=== PATIENT | female | born 1955 | race Caucasian/White ===

== ENCOUNTER → 2016-04-30 | Outpatient (CLI) | payer OTHER ==
[~2016-04-30] MED LIST: DILA100C; LISI10TA4; PRIL20CA; XANA1TAB2
== END ==
LOC: M SMT 10:26
PROVIDERS: ATTEND Physician Assistant Medical
DX: R56.9 Unspecified convulsions (principal)

== ENCOUNTER → 2016-04-30 | Outpatient (CLI) | payer OTHER | LOC: M SMT 08:44 | PROVIDERS: ATTEND Family Medicine | DX: R94.5 Abnormal results of liver function studies (principal) ==

== ENCOUNTER → 2016-07-04 | Outpatient (CLI) | payer OTHER ==
[2016-07-04 10:07] LABS: ALBUMIN 3.2 GM/DL (3.2-5.2); ALBUMIN/GLOBULIN RATIO 0.91 (1.00-1.93); ALKALINE PHOSPHATASE 135 U/L (45-117); ALT/SGPT 19 U/L (12-78); ANION GAP 6 MEQ/L (8-16); AST/SGOT 17 U/L (15-37); BILIRUBIN,TOTAL 0.3 MG/DL (0.2-1.0); BLOOD UREA NITROGEN 11 MG/DL (7-18); CALCIUM LEVEL 8.4 MG/DL (8.8-10.2); CARBON DIOXIDE LEVEL 31 MEQ/L (21-32); CHLORIDE LEVEL 106 MEQ/L (98-107); CREATININE FOR GFR 0.72 MG/DL (0.55-1.02); GAMMA GLUTAMYLTRANSPEPTIDASE 60 U/L (5-55); GLOMERULAR FILTRATION RATE > 60.0 (>45); GLUCOSE, FASTING 90 MG/DL (80-110); POTASSIUM SERUM 4.5 MEQ/L (3.5-5.1); SODIUM LEVEL 143 MEQ/L (136-145); TOTAL PROTEIN 6.7 GM/DL (6.4-8.2)
[2016-07-04 11:06] LABS: STABLE ALKPHOS 24 U/L
[2016-07-04 11:07] LABS: LABILE ALKPHOS 111 U/L
== END ==
LOC: M LAB 09:12
PROVIDERS: ATTEND Family Medicine
DX: R94.5 Abnormal results of liver function studies (principal); E55.9 Vitamin D deficiency, unspecified

== ENCOUNTER → 2016-11-19 | Outpatient (CLI) | payer OTHER ==
[2016-11-19 10:33] LABS: BASO % 0.6 % (0.0-1.0); EOS # 0.2 K/mm3 (0.0-0.50); EOS % 2.6 % (0.0-3.0); LARGE UNSTAINED CELL # 0.1 K/mm3 (0.0-0.4); LARGE UNSTAINED CELL % 1.2 % (0.0-4.0); LYMPH # 1.5 K/mm3 (1.5-4.5); LYMPH % 20.6 % (24.0-44.0); MEAN CORPUSCULAR HEMOGLOBIN 31.3 pg (27.0-33.0); MEAN CORPUSCULAR HGB CONC 33.4 g/dl (32.0-36.5); MEAN CORPUSCULAR VOLUME 93.6 fl (80.0-96.0); MONO # 0.4 K/mm3 (0.0-0.8); MONO % 6.3 % (0.0-5.0); NEUTROPHILS # 4.5 K/mm3 (1.8-7.7); NEUTROPHILS % 68.7 % (36.0-66.0); PLATELET COUNT, AUTOMATED 190 k/mm3 (150-450); WHITE BLOOD COUNT 6.6 K/mm3 (4.0-10.0)
[2016-11-19 10:56] LABS: ALBUMIN 3.2 GM/DL (3.2-5.2); ALBUMIN/GLOBULIN RATIO 0.94 (1.00-1.93); ALKALINE PHOSPHATASE 140 U/L (45-117); ALT/SGPT 19 U/L (12-78); ANION GAP 7 MEQ/L (8-16); AST/SGOT 14 U/L (15-37); BILIRUBIN,TOTAL 0.2 MG/DL (0.2-1.0); BLOOD UREA NITROGEN 12 MG/DL (7-18); CALCIUM LEVEL 8.4 MG/DL (8.8-10.2); CARBON DIOXIDE LEVEL 29 MEQ/L (21-32); CHLORIDE LEVEL 107 MEQ/L (98-107); CREATININE FOR GFR 0.69 MG/DL (0.55-1.02); FREE T4 0.79 NG/DL (0.76-1.46); GLOMERULAR FILTRATION RATE > 60.0 (>45); GLUCOSE, FASTING 91 MG/DL (80-110); POTASSIUM SERUM 4.8 MEQ/L (3.5-5.1); SODIUM LEVEL 143 MEQ/L (136-145); TOTAL PROTEIN 6.6 GM/DL (6.4-8.2)
== END ==
LOC: M LAB 09:40
PROVIDERS: ATTEND Family Medicine
DX: R94.5 Abnormal results of liver function studies (principal); E55.9 Vitamin D deficiency, unspecified; F41.1 Generalized anxiety disorder; G40.89 Other seizures

== ENCOUNTER → 2017-08-23 | Outpatient (CLI) | payer OTHER ==
[2017-08-23 10:44] LABS: PHENYTOIN (DILANTIN) 24.3 UG/ML (10.0-20.0)
== END ==
LOC: M LAB 09:58
DX: R56.9 Unspecified convulsions (principal)
CPT/HCPCS: 80185

== ENCOUNTER → 2017-08-25 | Outpatient (CLI) | payer OTHER ==
[2017-08-25 09:42] LABS: PHENYTOIN (DILANTIN) 23.9 UG/ML (10.0-20.0)
== END ==
LOC: M LAB 08:37
DX: G40.909 Epilepsy, unspecified, not intractable, without status epilepticus (principal)

== ENCOUNTER → 2017-08-25 | Outpatient (CLI) | payer OTHER ==
[2017-08-25 09:31] LABS: BASO # 0.1 10^3/uL (0.0-0.2); BASO % 0.8 % (0.0-1.0); EOS # 0.2 10^3/uL (0.0-0.50); EOS % 3.2 % (0.0-3.0); HEMATOCRIT 36.8 % (36.0-47.0); HEMOGLOBIN 12.1 g/dl (12.0-15.5); IMMATURE GRANULOCYTE % 0.3 % (0-3.0); LYMPH # 1.5 10^3/uL (1.5-4.5); MEAN CORPUSCULAR HEMOGLOBIN 29.9 pg (27.0-33.0); MEAN CORPUSCULAR HGB CONC 32.9 g/dl (32.0-36.5); MEAN CORPUSCULAR VOLUME 90.9 fl (80.0-96.0); MONO # 0.5 10^3/uL (0.0-0.8); MONO % 8.4 % (0.0-5.0); NEUTROPHILS # 3.7 10^3/uL (1.8-7.7); NEUTROPHILS % 62.3 % (36.0-66.0); PLATELET COUNT, AUTOMATED 181 10^3/uL (150-450); RED BLOOD COUNT 4.05 10^6/uL (4.00-5.40); RED CELL DISTRIBUTION WIDTH 15.7 % (11.5-14.5); WHITE BLOOD COUNT 5.9 10^3/uL (4.0-10.0)
[2017-08-25 09:50] LABS: ALBUMIN/GLOBULIN RATIO 0.83 (1.00-1.93); ALKALINE PHOSPHATASE 139 U/L (45-117); ALT/SGPT 19 U/L (12-78); ANION GAP 4 MEQ/L (8-16); AST/SGOT 17 U/L (7-37); BILIRUBIN,TOTAL 0.3 MG/DL (0.2-1.0); BLOOD UREA NITROGEN 11 MG/DL (7-18); CARBON DIOXIDE LEVEL 30 MEQ/L (21-32); CHLORIDE LEVEL 110 MEQ/L (98-107); CHOLESTEROL LEVEL 178 MG/DL (<200); CHOLESTEROL RISK RATIO 2.197 (<5); CREATININE FOR GFR 0.71 MG/DL (0.55-1.30); GLOMERULAR FILTRATION RATE > 60.0 (>45); GLUCOSE, FASTING 89 MG/DL (70-100); HDL CHOLESTEROL 81 MG/DL (>40); LDL CHOLESTEROL 83.2 MG/DL (<100); NON-HDL-C 97 MG/DL; PHENYTOIN (DILANTIN) 24.7 UG/ML (10.0-20.0); POTASSIUM SERUM 4.8 MEQ/L (3.5-5.1); SODIUM LEVEL 144 MEQ/L (136-145); TOTAL PROTEIN 6.6 GM/DL (6.4-8.2); TRIGLYCERIDES LEVEL 69 MG/DL (<150)
[2017-08-25 09:51] LABS: FREE T4 0.69 NG/DL (0.76-1.46)
== END ==
LOC: M LAB 08:29
DX: G40.89 Other seizures (principal)

== ENCOUNTER → 2017-09-03 | Outpatient (CLI) | payer OTHER | LOC: M WUC 13:17 | DX: R05 Cough (principal); R06.2 Wheezing | CPT/HCPCS: 71046 ==

== ENCOUNTER → 2017-09-05 | Outpatient (CLI) | payer OTHER ==
[2017-09-05 12:47] LABS: PHENYTOIN (DILANTIN) 20.2 UG/ML (10.0-20.0)
== END ==
LOC: M LAB 10:44
DX: R56.9 Unspecified convulsions (principal)
CPT/HCPCS: 80185

== ENCOUNTER → 2017-10-07 | Outpatient (CLI) | payer OTHER | LOC: M SMT 11:14 | DX: J20.9 Acute bronchitis, unspecified (principal) | CPT/HCPCS: 71046 ==

== ENCOUNTER → 2017-10-28 | Outpatient (REF) | payer OTHER | LOC: M LAB REF 09:35 | DX: J20.9 Acute bronchitis, unspecified (principal) | CPT/HCPCS: 87186 ==

== ENCOUNTER → 2017-11-20 | Outpatient (CLI) | payer OTHER ==
[2017-11-20 08:44] LABS: BASO # 0.1 10^3/uL (0.0-0.2); BASO % 0.7 % (0.0-1.0); EOS # 0.7 10^3/uL (0.0-0.50); EOS % 8.5 % (0.0-3.0); HEMATOCRIT 38.4 % (36.0-47.0); HEMOGLOBIN 12.9 g/dl (12.0-15.5); IMMATURE GRANULOCYTE % 0.1 % (0-3.0); LYMPH # 1.7 10^3/uL (1.5-4.5); LYMPH % 22.3 % (24.0-44.0); MEAN CORPUSCULAR HEMOGLOBIN 30.2 pg (27.0-33.0); MEAN CORPUSCULAR HGB CONC 33.6 g/dl (32.0-36.5); MEAN CORPUSCULAR VOLUME 89.9 fl (80.0-96.0); MONO # 0.6 10^3/uL (0.0-0.8); MONO % 7.6 % (0.0-5.0); NEUTROPHILS # 4.6 10^3/uL (1.8-7.7); NEUTROPHILS % 60.8 % (36.0-66.0); PLATELET COUNT, AUTOMATED 188 10^3/uL (150-450); RED BLOOD COUNT 4.27 10^6/uL (4.00-5.40); RED CELL DISTRIBUTION WIDTH 14.3 % (11.5-14.5); WHITE BLOOD COUNT 7.6 10^3/uL (4.0-10.0)
[2017-11-20 09:05] LABS: ERYTHROCYTE SEDIMENTATION RATE 33 mm/hr (0-30)
[2017-11-20 09:09] LABS: ANION GAP 5 MEQ/L (8-16); BLOOD UREA NITROGEN 15 MG/DL (7-18); C REACTIVE PROTEIN QUANTITATIV 1.71 MG/DL (0.00-0.30); CALCIUM LEVEL 8.4 MG/DL (8.8-10.2); CARBON DIOXIDE LEVEL 29 MEQ/L (21-32); CHLORIDE LEVEL 110 MEQ/L (98-107); CREATININE FOR GFR 0.76 MG/DL (0.55-1.30); GLOMERULAR FILTRATION RATE > 60.0 (>45); GLUCOSE, FASTING 91 MG/DL (70-100); NT-PRO BNP 120 PG/ML (<125); SODIUM LEVEL 144 MEQ/L (136-145)
== END ==
LOC: M LAB 08:02
DX: R05 Cough (principal)

== ENCOUNTER → 2018-04-04 | Outpatient (CLI) | payer OTHER | LOC: M LAB 10:57 | PROVIDERS: ATTEND Physician Assistant Medical | DX: R56.9 Unspecified convulsions (principal) ==

== ENCOUNTER → 2018-06-22 | Outpatient (CLI) | payer OTHER ==
[~2018-06-22] MED LIST changes: +METHACHOLINE KIT (J7674) INH ONE
--- NOTE | 2018-06-22 15:33 | PFTRPT ---
Height: 61.00 Inches Weight: 191.00 Lbs BSA: 1.85 Diagnosis: R06.00 DATE OF PROCEDURE: 06/22/2018 ORDERED BY: EMETERIO Rasmussen INTERPRETATION: Study of excellent technical quality. Under protocol, methacholine was administered. At a dose of 0.25 mg or 1.375 CDUs, a 21% decline in the FEV1 was noted. PC of 0.22 is significant. Flow rates did return to baseline post bronchodilator administration. IMPRESSION: Positive methacholine challenge study. MTDD
== END ==
LOC: M CARPUL 09:46
PROVIDERS: ATTEND Physician Assistant
DX: R06.00 Dyspnea, unspecified (principal)
CPT/HCPCS: 94070; J7674

== ENCOUNTER 2018-08-25 17:44 | Emergency (ER) | payer OTHER ==
[~2018-08-25] VITALS: Ht 154.9 cm; Wt 92.4 kg
[~2018-08-25 17:44] MED LIST changes: -METHACHOLINE KIT (J7674) INH ONE
[2018-08-25] MEDS ORDERED: ACETAMINOPHEN 500 MG TAB PO ONE (18:30)
[2018-08-25] MEDS ORDERED: diphenhydrAMINE 25 MG CAP PO ONE (18:30)
[2018-08-25] MEDS ORDERED: KETOROLAC 60 MG/2 ML VIAL (J1885) IM ONE (18:30)
[2018-08-25] MEDS ORDERED: METH4PACK (18:33)
[2018-08-25] MEDS ORDERED: GABA-843 PO (18:33)
[2018-08-25] MEDS ORDERED: CLON-412 PO (18:33)
[2018-08-25] MEDS ORDERED: SYMB16INH PO (18:33)
[2018-08-25] MEDS ORDERED: HYDR50TA70 PO (18:33)
[2018-08-25] MEDS ORDERED: CLON2TAB7 PO (18:33)
[2018-08-25] MEDS ORDERED: GABA600T4 PO (18:33)
[2018-08-25] MEDS ORDERED: D3 H2000 PO (18:33)
[2018-08-25] MEDS ORDERED: PROAAER10 PO (18:33)
[2018-08-25] MEDS ORDERED: FLUO10CA8 PO ×2 (18:33)
[2018-08-25] MEDS ORDERED: KETO10TAB PO (18:33)
[2018-08-25] MEDS ORDERED: DILA100C PO (18:33)
--- NOTE | 2018-08-25 19:29 | REP ---
CT brain without contrast: History: Headache x 1 week. Comparison brain MRI study is from June 26, 2008. 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 Bone window settings demonstrate the right temporoparietal craniotomy. There are numerous metallic densities dispersed in the right temporal lobe and occipital lobe region with areas of encephalomalacia. These findings appear to be unchanged when compared with the remote prior MRI study. Apparently, there is a history of treatment for right temporal lobe arteriovenous malformation. Today's CT images show no evidence of intracranial hemorrhage. No extra-axial fluid collection is seen. No new infarction is seen. Vascular calcification is noted in the distal carotid arteries bilaterally. There is some diffuse volume loss. Impression: Postoperative changes in the right temporal and occipital lobes, unchanged from remote prior MRI study status post AV therapy. Diffuse atrophy and vascular calcification. No acute intracranial abnormality. Electronically Signed by Jose Young MD 08/25/2018 08:30 P
[2018-08-25 19:41] VITALS: BP 137/65
== END 2018-08-25 19:43 | disposition home or self-care (01) ==
LOC: M ED 17:44
DX: G44.209 Tension-type headache, unspecified, not intractable (principal); I10 Essential (primary) hypertension; F41.9 Anxiety disorder, unspecified; H40.9 Unspecified glaucoma; R56.9 Unspecified convulsions; Z90.710 Acquired absence of both cervix and uterus; Z87.798 Personal history of other (corrected) congenital malformations; Z79.51 Long term (current) use of inhaled steroids; Z79.899 Other long term (current) drug therapy; Z98.890 Other specified postprocedural states
CPT/HCPCS: 70450; 96372; 99283; J1885

== ENCOUNTER → 2018-10-17 | Outpatient (CLI) | payer OTHER ==
[~2018-10-17] MED LIST changes: +CLON-412 PO; +CLON2TAB7 PO; +D3 H2000 PO; +DILA100C PO; +FLUO10CA8 PO; +GABA-843 PO; +GABA600T4 PO; +HYDR50TA70 PO; +KETO10TAB PO; +METH4PACK; +PROAAER10 PO; +SYMB16INH PO
== END ==
LOC: M LAB 15:05
PROVIDERS: ATTEND Physician Assistant Medical
DX: G40.89 Other seizures (principal)

== ENCOUNTER → 2018-10-17 | Outpatient (CLI) | payer OTHER ==
[2018-10-17 15:45] LABS: BASO % 0.6 % (0.0-1.0); EOS # 0.1 10^3/uL (0.0-0.50); EOS % 1.2 % (0.0-3.0); HEMATOCRIT 39.6 % (36.0-47.0); HEMOGLOBIN 13.1 g/dl (12.0-15.5); LYMPH # 1.7 10^3/uL (1.5-4.5); LYMPH % 26.3 % (24.0-44.0); MEAN CORPUSCULAR HEMOGLOBIN 30.8 pg (27.0-33.0); MEAN CORPUSCULAR HGB CONC 33.1 g/dl (32.0-36.5); MONO # 0.4 10^3/uL (0.0-0.8); MONO % 6.5 % (0.0-5.0); NEUTROPHILS # 4.2 10^3/uL (1.8-7.7); NEUTROPHILS % 65.1 % (36.0-66.0); PLATELET COUNT, AUTOMATED 209 10^3/uL (150-450); RED BLOOD COUNT 4.26 10^6/uL (4.00-5.40); WHITE BLOOD COUNT 6.5 10^3/uL (4.0-10.0)
[2018-10-17 16:11] LABS: ALBUMIN 3.6 GM/DL (3.2-5.2); ALT/SGPT 19 U/L (12-78); BILIRUBIN,TOTAL 0.2 MG/DL (0.2-1.0); BLOOD UREA NITROGEN 10 MG/DL (7-18); CALCIUM LEVEL 8.5 MG/DL (8.8-10.2); CARBON DIOXIDE LEVEL 27 MEQ/L (21-32); CHLORIDE LEVEL 108 MEQ/L (98-107); CHOLESTEROL LEVEL 182 MG/DL (<200); CHOLESTEROL RISK RATIO 2.888 (<5); CREATININE FOR GFR 0.77 MG/DL (0.55-1.30); FREE T4 0.91 NG/DL (0.76-1.46); GLOMERULAR FILTRATION RATE > 60.0 (>45); GLUCOSE, FASTING 83 MG/DL (70-100); HDL CHOLESTEROL 63 MG/DL (>40); LDL CHOLESTEROL 102 MG/DL (<100); NON-HDL-C 119 MG/DL; POTASSIUM SERUM 4.2 MEQ/L (3.5-5.1); SODIUM LEVEL 143 MEQ/L (136-145); TOTAL PROTEIN 7.2 GM/DL (6.4-8.2); TRIGLYCERIDES LEVEL 85 MG/DL (<150)
== END ==
LOC: M LAB 14:58
PROVIDERS: ATTEND Family Medicine
DX: Z13.220 Encounter for screening for lipoid disorders (principal); Z13.29 Encounter for screening for other suspected endocrine disorder; Z13.0 Encounter for screening for diseases of the blood and blood-forming organs and certain disorders involving the immune mechanism

== ENCOUNTER → 2018-10-17 | Outpatient (CLI) | payer OTHER ==
[2018-10-17 15:51] LABS: BASO % 0.6 % (0.0-1.0); EOS # 0.1 10^3/uL (0.0-0.50); EOS % 1.8 % (0.0-3.0); HEMATOCRIT 38.2 % (36.0-47.0); HEMOGLOBIN 12.7 g/dl (12.0-15.5); LYMPH # 1.7 10^3/uL (1.5-4.5); LYMPH % 25.4 % (24.0-44.0); MEAN CORPUSCULAR HEMOGLOBIN 30.2 pg (27.0-33.0); MEAN CORPUSCULAR HGB CONC 33.2 g/dl (32.0-36.5); MEAN CORPUSCULAR VOLUME 90.7 fl (80.0-96.0); MONO # 0.5 10^3/uL (0.0-0.8); MONO % 6.9 % (0.0-5.0); NEUTROPHILS # 4.4 10^3/uL (1.8-7.7); NEUTROPHILS % 65.2 % (36.0-66.0); PLATELET COUNT, AUTOMATED 211 10^3/uL (150-450); RED BLOOD COUNT 4.21 10^6/uL (4.00-5.40); WHITE BLOOD COUNT 6.7 10^3/uL (4.0-10.0)
[2018-10-17 16:28] LABS: BLOOD UREA NITROGEN 9 MG/DL (7-18); CARBON DIOXIDE LEVEL 26 MEQ/L (21-32); CHLORIDE LEVEL 108 MEQ/L (98-107); GLOMERULAR FILTRATION RATE > 60.0 (>45); GLUCOSE, FASTING 76 MG/DL (70-100); POTASSIUM SERUM 4.1 MEQ/L (3.5-5.1); SODIUM LEVEL 142 MEQ/L (136-145)
[2018-10-17 16:29] LABS: ALBUMIN 3.5 GM/DL (3.2-5.2); ALT/SGPT 20 U/L (12-78); BILIRUBIN,TOTAL 0.3 MG/DL (0.2-1.0); FREE T3 2.6 PG/ML (2.2-4.0); FREE T4 0.98 NG/DL (0.76-1.46); IRON (FE) 50 UG/DL (50-170); PERCENT SATURATION 26.7 % (13.2-45.0); PHENYTOIN (DILANTIN) 17.6 UG/ML (10.0-20.0); TOTAL IRON BINDING CAPACITY 187 UG/DL (250-450); TOTAL PROTEIN 7.2 GM/DL (6.4-8.2)
[2018-10-17 16:36] LABS: TOTAL 25(OH) VITAMIN D 41.8 NG/ML (30.0-100.0)
[2018-10-18 09:55] LABS: THYROID PEROXIDASE ANTIBODY < 28.0 U/ML (<60.0)
[2018-10-18 09:56] LABS: THYROGLOBULIN ANTIBODY 20.3 U/ML (<60.0)
[2018-10-23 14:10] LABS: ANTINUCLEAR ANTIBODIES DIRECT Negative (Negative); Lyme Disease IgG Ab 18 kDa Ban Present (.); Lyme Disease IgG Ab 23 kDa Ban Absent (.); Lyme Disease IgG Ab 28 kDa Ban Present (.); Lyme Disease IgG Ab 30 kDa Ban Absent (.); Lyme Disease IgG Ab 39 kDa Ban Absent (.); Lyme Disease IgG Ab 41 kDa Ban Absent (.); Lyme Disease IgG Ab 45 kDa Ban Absent (.); Lyme Disease IgG Ab 58 kDa Ban Absent (.); Lyme Disease IgG Ab 66 kDa Ban Absent (.); Lyme Disease IgG Ab 93 kDa Ban Present (.); Lyme Disease IgG West Blot Int Negative (.); Lyme Disease IgG/IgM Antibodie <0.91 ISR (0.00-0.90); Lyme Disease IgM Ab 23 kDa Ban Absent (.); Lyme Disease IgM Ab 39 kDa Ban Present (.); Lyme Disease IgM Ab 41 kDa Ban Absent (.); Lyme Disease IgM Ab Quantitati 2.45 index (0.00-0.79); Lyme Disease IgM West Blot Int Negative (.); T3 REVERSE 19.1 ng/dL (9.2-24.1)
== END ==
LOC: M LAB 15:11
PROVIDERS: ATTEND Nurse Practitioner Pediatrics
DX: F41.0 Panic disorder [episodic paroxysmal anxiety] (principal); F41.1 Generalized anxiety disorder; R53.1 Weakness

== ENCOUNTER → 2019-04-24 | Outpatient (CLI) | payer OTHER ==
[~2019-04-24] MED LIST changes: +FLUO10CA15 PO; -FLUO10CA8 PO
== END ==
LOC: M LAB 10:00
PROVIDERS: ATTEND Physician Assistant Medical
DX: G40.909 Epilepsy, unspecified, not intractable, without status epilepticus (principal)

== ENCOUNTER → 2019-04-30 | Outpatient (CLI) | payer OTHER ==
--- NOTE | 2019-05-01 05:16 | REP ---
Clinical: Follow up abnormal lung findings. Technique: Axial noncontrast images from the thoracic inlet to the upper abdomen with coronal and sagittal re-formations. Comparison: 06/01/2018, 11/22/2017, 12/20/2008. Findings: Few scattered small pleural based nodules up to approximately 4 mm are again identified and unchanged along with few scattered small calcified granulomata. The lung gutierrez are otherwise well aerated, relatively symmetric and clear. No consolidation, significant nodule or mass lesion appreciated. No effusion. No pneumothorax. Tracheobronchial tree is patent. No adenopathy. Mediastinum demonstrates minimal atherosclerotic changes to the thoracic aorta and coronary arteries without aortic aneurysm or cardiomegaly. No pericardial effusion. Surrounding musculoskeletal structures are intact. Small hiatal hernia noted. Bilateral adrenal glands are normal. Cholelithiasis cannot be excluded. Impression: 1. Lung gutierrez demonstrate minimal chronic benign appearing granulomatous changes. No acute or significant thoracic process is appreciated. 2. Small hiatal hernia. 3. Presumed cholelithiasis. Electronically Signed by Clyde Brown MD 05/01/2019 05:07 A
== END ==
LOC: M RAD 10:24
PROVIDERS: ATTEND Physician Assistant
DX: R91.1 Solitary pulmonary nodule (principal)

== ENCOUNTER → 2019-10-06 | Outpatient (CLI) | payer MEDICARE, OTHER ==
[2019-10-06 14:07] LABS: BASO % 0.4 % (0.0-1.0); EOS # 0.1 10^3/uL (0.0-0.5); EOS % 1.7 % (0.0-3.0); HEMATOCRIT 40.9 % (36.0-47.0); HEMOGLOBIN 13.3 g/dl (12.0-15.5); LYMPH % 28.5 % (24.0-44.0); MEAN CORPUSCULAR HEMOGLOBIN 30.1 pg (27.0-33.0); MEAN CORPUSCULAR HGB CONC 32.5 g/dl (32.0-36.5); MEAN CORPUSCULAR VOLUME 92.5 fl (80.0-96.0); MONO # 0.5 10^3/uL (0.0-0.8); MONO % 7.7 % (0.0-5.0); NEUTROPHILS # 4.3 10^3/uL (1.5-8.5); NEUTROPHILS % 61.4 % (36.0-66.0); PLATELET COUNT, AUTOMATED 250 10^3/uL (150-450); RED BLOOD COUNT 4.42 10^6/uL (4.00-5.40); WHITE BLOOD COUNT 6.9 10^3/uL (4.0-10.0)
[2019-10-06 14:21] LABS: ALBUMIN 3.2 GM/DL (3.2-5.2); ALT/SGPT 18 U/L (12-78); BILIRUBIN,TOTAL 0.3 MG/DL (0.2-1.0); BLOOD UREA NITROGEN 12 MG/DL (7-18); CALCIUM LEVEL 8.3 MG/DL (8.8-10.2); CARBON DIOXIDE LEVEL 28 MEQ/L (21-32); CHLORIDE LEVEL 107 MEQ/L (98-107); CHOLESTEROL LEVEL 197 MG/DL (<200); CHOLESTEROL RISK RATIO 2.432 (<5); CREATININE FOR GFR 0.85 MG/DL (0.55-1.30); FREE T4 0.81 NG/DL (0.76-1.46); GLOMERULAR FILTRATION RATE > 60.0 (>45); GLUCOSE, FASTING 101 MG/DL (70-100); HDL CHOLESTEROL 81 MG/DL (>40); LDL CHOLESTEROL 99 MG/DL (<100); NON-HDL-C 116 MG/DL; POTASSIUM SERUM 4.3 MEQ/L (3.5-5.1); SODIUM LEVEL 144 MEQ/L (136-145); TRIGLYCERIDES LEVEL 87 MG/DL (<150)
== END ==
LOC: M WUC 09:48
PROVIDERS: ATTEND Family Medicine
DX: E55.9 Vitamin D deficiency, unspecified (principal); R94.5 Abnormal results of liver function studies; G40.89 Other seizures; Z79.899 Other long term (current) drug therapy

== ENCOUNTER → 2019-10-06 | Outpatient (CLI) | payer MEDICARE, OTHER | LOC: M WUC 09:46 | PROVIDERS: ATTEND Physician Assistant Medical | DX: G40.909 Epilepsy, unspecified, not intractable, without status epilepticus (principal) ==

== ENCOUNTER → 2019-12-13 | Outpatient (CLI) | payer MEDICARE, OTHER ==
[~2019-12-13] MED LIST changes: -FLUO10CA15 PO; +FLUO10CA16 PO
--- NOTE | 2019-12-25 17:16 | REP ---
RIGHT HIP: 2-VIEWS HISTORY: Bursitis of the right hip. Muscle strain. No known injury. Pain x5 days. FINDINGS: AP and frog leg views of the right hip show mild diffuse osteopenia. Femoral head is smooth and rounded. Hip joint space is preserved. There is no evidence of erosive change or significant spurring. No bony destructive lesion. Periarticular soft tissues are unremarkable. IMPRESSION: Mild diffuse osteopenia. Otherwise negative radiographs of the right hip. MTDD
--- NOTE | 2019-12-25 17:18 | REP ---
RIGHT KNEE SERIES: 5-VIEWS HISTORY: Muscle strain or tendon strain. Bursitis of hip. No known injury. Pain. FINDINGS: Five views of the right knee demonstrate diffuse osteopenia. There is moderate three compartment osteoarthritis of the right knee. Chondrocalcinosis is noted medially and laterally. Patellofemoral spurring and narrowing are seen. No acute bony abnormality is seen. IMPRESSION: Moderate three compartment osteoarthritis. No acute bony abnormality. MTDD
== END ==
LOC: M WUC 15:11
PROVIDERS: ATTEND Physician Assistant
DX: M70.71 Other bursitis of hip, right hip (principal); S86.211A Strain of muscle(s) and tendon(s) of anterior muscle group at lower leg level, right leg, initial encounter; M17.11 Unilateral primary osteoarthritis, right knee; M85.851 Other specified disorders of bone density and structure, right thigh; X58.XXXA Exposure to other specified factors, initial encounter; Y92.9 Unspecified place or not applicable

== ENCOUNTER → 2020-07-14 | Outpatient (CLI) | payer MEDICARE, OTHER ==
[~2020-07-14] MED LIST changes: +GABA-282 PO; -GABA-843 PO
[2020-07-14 10:26] LABS: BASO # 0.1 10^3/uL (0.0-0.2); BASO % 0.7 % (0.0-1.0); EOS # 0.3 10^3/uL (0.0-0.5); EOS % 4.2 % (0.0-3.0); HEMOGLOBIN 12.2 g/dl (12.0-15.5); LYMPH # 2.3 10^3/uL (1.5-5.0); LYMPH % 32.2 % (24.0-44.0); MEAN CORPUSCULAR HEMOGLOBIN 29.4 pg (27.0-33.0); MEAN CORPUSCULAR HGB CONC 31.3 g/dl (32.0-36.5); MONO # 0.7 10^3/uL (0.0-0.8); MONO % 9.1 % (2.0-8.0); NEUTROPHILS # 3.8 10^3/uL (1.5-8.5); NEUTROPHILS % 53.5 % (36.0-66.0); PLATELET COUNT, AUTOMATED 209 10^3/uL (150-450); RED BLOOD COUNT 4.15 10^6/uL (4.00-5.40); WHITE BLOOD COUNT 7.1 10^3/uL (4.0-10.0)
[2020-07-14 10:50] LABS: ALT/SGPT 18 U/L (12-78); BILIRUBIN,TOTAL 0.1 MG/DL (0.2-1.0); BLOOD UREA NITROGEN 17 MG/DL (7-18); CALCIUM LEVEL 8.1 MG/DL (8.8-10.2); CARBON DIOXIDE LEVEL 28 MEQ/L (21-32); CHLORIDE LEVEL 107 MEQ/L (98-107); CREATININE FOR GFR 0.61 MG/DL (0.55-1.30); GLOMERULAR FILTRATION RATE > 60.0 (>45); GLUCOSE, FASTING 79 MG/DL (70-100); PHENYTOIN (DILANTIN) 10.3 UG/ML (10.0-20.0); POTASSIUM SERUM 4.5 MEQ/L (3.5-5.1); SODIUM LEVEL 140 MEQ/L (136-145); TOTAL PROTEIN 6.6 GM/DL (6.4-8.2)
== END ==
LOC: M LAB 09:29
PROVIDERS: ATTEND Physician Assistant Medical
DX: Z51.81 Encounter for therapeutic drug level monitoring (principal); G40.89 Other seizures

== ENCOUNTER → 2020-08-18 | Outpatient (CLI) | payer MEDICARE, OTHER ==
--- NOTE | 2020-08-18 09:37 | DEXAMM ---
INDICATION: Z13.820 SCREENING FOR OSTEOPOROSIS. COMPARISON: None. TECHNIQUE: Bone density was measured using dual-energy x-ray absorptiometry (DEXA). FINDINGS: AP SPINE L1-L4 BMD 1.016 g/cm2 Young Adult T-Score -1.4 Age Matched Z-Score 0.2. LT FEMUR, TOTAL BMD 0.779 g/cm2 Young Adult T-Score -1.8 Age Matched Z-Score -0.6. LT NECK BMD 0.718 g/cm2 Young Adult T-Score -2.3 Age Matched Z-Score -0.8. RT FEMUR, TOTAL BMD 0.772 g/cm2 Young Adult T-Score -1.9 Age Matched Z-Score -0.6. RT NECK BMD 0.686 g/cm2 Young Adult T-Score -2.5 Age Matched Z-Score -1.0. IMPRESSION: There is low bone density of the spine. There is low bone density of the left hip. There is low bone density of the right hip. FOLLOW-UP: Recommendation for the next bone density exam: 2 years. <Electronically signed by Kingsley Marroquin > 08/18/20 0933
--- NOTE | 2020-08-18 12:05 | REPMRS ---
Patient History The patient states she has not had a clinical breast exam in over a year. Patient is postmenopausal. No known family history of cancer. No Hormone Replacement Therapy Patient states no breast complaints today. Patient has signed MRS History Sheet. Digital Woman Screen Mammo: August 18, 2020 - Exam #: [id number] Bilateral CC and MLO view(s) were taken. Technologist: Yoli Abdalla, Technologist Prior study comparison: July 19, 2011, bilateral digital mammo screening bilat, performed at [facility]. December 09, 2005, bilateral digital mammo screening bilat, performed at [facility]. FINDINGS: There are scattered fibroglandular densities. Screening. Digital screening (2D) mammography was performed bilaterally in the CC and MLO projections. Additionally, breast tomosynthesis (3D mammography) was performed bilaterally in the CC and MLO projections. Todays exam was compared to the prior exams(s). By history, the patient has no complaints of a palpable breast abnormality or other significant breast complaints. The breasts are unchanged in size and shape.Once again, stable benign appearing calcifications are seen. There are no jessica-soft tissue densities or spiculated masses. There is no internal architectural distortion. There are no suspicious jessica-calcific clusters. Skin thickening or nipple retraction is not present. IMPRESSION: BI-RADS Category 2- Benign Findings(s). There is no evidence of malignant alteration of the breasts. Followup examination recommended in one year. The Volpara volumetric breast density category is B, there are scattered areas of fibroglandular density. This mammogram was read with the assistance of [facility] [employer],an FDA approved computer aided detection system for mammography. The lifetime Tyrer-Cuzick score is 4.2 % Negative x-ray reports should not delay surgical consultation if a dominant or clinically suspicious mass is present. Not all breast cancers can be identified by mammography. Therefore, we recommend that you continue to perform regular breast self-examination and physical examination and then promptly contact your physician of any concerns or changes. Adenosis and dense breasts may obscure an underlying neoplasm. Assessment: BI-RADS/ACR category 2 mammogram. Benign Findings. Recommendation Routine screening mammogram of both breasts in 1 year. Electronically Signed By: Prem Noble DO 08/18/20 [id number]
== END ==
LOC: M WHC 08:12
PROVIDERS: ATTEND Physician Assistant
DX: Z12.31 Encounter for screening mammogram for malignant neoplasm of breast (principal); Z13.820 Encounter for screening for osteoporosis; M81.0 Age-related osteoporosis without current pathological fracture

== ENCOUNTER → 2020-12-11 | Outpatient (CLI) | payer MEDICARE, OTHER ==
[2020-12-11 17:14] LABS: BLOOD UREA NITROGEN 14 MG/DL (7-18); GLOMERULAR FILTRATION RATE > 60.0 (>45)
== END ==
LOC: M LAB 14:48
PROVIDERS: ATTEND Physician Assistant
DX: M54.16 Radiculopathy, lumbar region (principal); M54.5 Low back pain

== ENCOUNTER → 2020-12-26 | Outpatient (CLI) | payer MEDICARE, OTHER | LOC: M LAB 08:47 | PROVIDERS: ATTEND Physician Assistant Medical | DX: R56.9 Unspecified convulsions (principal); Z51.81 Encounter for therapeutic drug level monitoring; Z79.899 Other long term (current) drug therapy ==

== ENCOUNTER → 2021-01-07 | Outpatient (CLI) | payer MEDICARE, OTHER ==
--- NOTE | 2021-01-07 15:47 | REPVR ---
PROCEDURE INFORMATION: Exam: CT Cervical Spine Without Contrast Exam date and time: 01/07/2021 3:09 PM Age: 65 years old Clinical indication: Pain; Cervicalgia TECHNIQUE: Imaging protocol: Computed tomography images of the cervical spine without contrast. Radiation optimization: All CT scans at this facility use at least one of these dose optimization techniques: automated exposure control; mA and/or kV adjustment per patient size (includes targeted exams where dose is matched to clinical indication); or iterative reconstruction. COMPARISON: CT Chest without contrast 04/30/2019 10:40 AM FINDINGS: There are advanced multilevel degenerative changes that include disc space narrowing, vacuum disc, ventral ridging, uncovertebral joint arthropathy, and hypertrophic spur formation. There is moderate bony spinal canal stenosis at C6/7. There is moderate right-sided intracranial pathology, not fully characterized on this exam. This has been reported previously. IMPRESSION: 1. There are advanced multilevel degenerative changes that include disc space narrowing, vacuum disc, ventral ridging, uncovertebral joint arthropathy, and hypertrophic spur formation. There is moderate bony spinal canal stenosis at C6/7. Full evaluation of the intervertebral discs and intraspinal contents is limited with CT imaging. Clinical findings will determine the need for further evaluation with MRI imaging. 2. There is moderate right-sided intracranial pathology, not fully characterized on this exam. This has been reported previously. Please refer to prior CT report dated August 25, 2018 for additional details. Electronically signed by: Ron Saravia On 01/07/2021 15:47:04 PM
== END ==
LOC: M RAD 14:59
PROVIDERS: ATTEND Physician Assistant Medical
DX: M54.2 Cervicalgia (principal)

== ENCOUNTER 2021-02-11 10:27 | Emergency (ER) | payer MEDICARE, OTHER ==
[~2021-02-11] VITALS: Ht 152.4 cm; Wt 88.6 kg
[2021-02-11] MEDS ORDERED: BACL10TA2 (10:36)
[2021-02-11] MEDS ORDERED: MELO15TA28 (10:36)
[2021-02-11] MEDS ORDERED: ALPR1TAB3 (10:36)
--- OUTSIDE RECORDS SUMMARY | 2021-02-11 10:36 | CCD | Continuity of Care Document ---
Author Author Mali COLLINS P.A. 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 AUTM AUTB Unavailable Problems Active Problems Provider Date Mild persistent asthma Kamaljit Lepe D.O. Onset: 07/10/2020 Mild intermittent asthma Lionel Rasmussen Onset: 06/30/19 19 Other nonspecific abnormal finding of lung field Roland oshea, P.AWinston Onset: 11/25/2017 Difficulty breathing Lionel Rasmussen Onset: 11/25/2017 Social History Type Date Description Comments Sex Unknown Tobacco Use Reviewed: 05/17/19 Patient has never smoked Smoking Status Reviewed: 01/29/21 Patient has never smoked Allergies and adverse reactions Active Allergies Criticality Reaction | Severity Comments Date Cerumenex Unable to assess criticality 11/25/2017 Medications Active Medications SIG Qnty Indications Ordering Provide r Date Symbicort 160-4.5mcg/Act Aerosol 2 puff twice a day 10.200gm J45.20 Ita StephensOWinston 06/29/2018 Dilantin 100mg Capsules 1 by mouth twice a day Unknown Prozac 10mg Capsules 20mg every morning, 10mg every evening Unknown Hydroxyzine HCL 50mg Tablets 1 by mouth every evening Unknown Proair HFA 108(90Base) mcg/Act Aer osol 2 puffs four times a day as needed 17gm Ita StephensO . Vitamin D3 2000Unit Capsules daily Unknown Xanax XR 1mg Tablets ER 24HR 1 tab by mouth four times a day Unknown 0 Immunizations CPT Code Status Date Vaccine Lot # [id number] Given 05/17/2019 Prevnar 13 [id number] Given 05/17/2019 Prevnar 13 [id number] Vital Signs Date Vital Result Comment 01/29/2021 2:40pm BP Systolic 160 mmHg Rechecked 138 /86 BP Diastolic 90 mmHg Rechecked 138/86 Heart Rate 74 /min O2 % BldC Oximetry 97 % Height 61 inches 5'1" Weight 199.00 lb BMI (Body Mass Index) 37.6 kg/m2 [place] Body Weight 105 lb Weight 90.266 kg BSA (Body Surface Area) 1.88 m2 07/10/2020 11:22am BP Systolic 130 mmHg BP Diastolic 80 mmHg Heart Rate 65 /min O2 % BldC Oximetry 98 % Body Temperature 97.3 F Height 61 inches 5'1" Weight 206.00 lb BMI (Body Mass Index) 38.9 kg/m2 [place] Body Weight 105 lb Weight 93.442 kg BSA (Body Surface Area) 1.91 m2 Results Test Acquired Date Facility Test Result H/L Range Note FVL/[place] 01/29/2021 [facility] SEE IMAGE FVC-Pred 2.77 L FVC-Pre 1.69 L FVC-%Pred-Pre 60 L FVC-LLN 2.14 L Fev1-Pred 2.11 L Fev1-Pre 1.45 L Fev1-%Pred-Pre 68 L Fev1-LLN 1.58 L Fev6-Pred 2.65 L Fev6-Pre 1.69 L Fev6-%Pred-Pre 63 L Fev6-LLN 2.04 L Cqm6lcl-Gtzq 77 % Olx6fad-Rae 86 % Ghr5kxp-%Pred-Pre 111 % Vnj3zvx-MDX 67 % Tvb9odi-Agvw 96 % Tkz2nkg-Ggy 100 % Bnl5dxe-%Pred-Pre 104 % FEFMax-Pred 5.48 L/E/sec FEFMax-Pre 5.23 L/E/sec FEFMax-%Pred-Pre 95 L/E/sec FEFMax-LLN 3.92 L/E/sec Xgp5259-Zlvs 1.92 L/E/sec Tud9170-Xay 1.95 L/E/sec Lki0440-%Pred-Pre 101 L/E/sec Csd0004-YLI 0.79 L/E/sec ExpTime-Pre 6.02 sec Ubn6ykp3-Iiks 80 % Ecf8ami7-Dfs 86 % Tdd9kym0-%Pred-Pre 107 % Jnl8kbe7-LOX 71 % Procedures Description No Information Available Medical Devices Description No Information Available Encounters Description No Information Available Assessments Date Code Description Provider 01/29/2021 J45.30 Mild persistent asthma Roland gonzalez, P.A. Plan of Treatment Future Appointment(s):* 07/28/2021 11:30 am - Kamaljit Lepe D.O. at [facility] 01/29/2021 - Roland Collins, P.A.* J45.30 Mild persistent asthma * * New Labs:* FVL/[place], Ordered: 01/29/21 * Follow up:* Follow up in 6 months with tung Functional Status Functional Condition Comment Date Status Independent with all ADL's Activ e Independent with all IADL's Acti ve Mental Status Mental Condition Comment Date Status None Active Can understand information Activ e Referrals Description No Information Available
--- OUTSIDE RECORDS SUMMARY | 2021-02-11 10:36 | CCD | Continuity of Care Document ---
Author Author Mali RICCI PA Organization Unknown Address [address] [place] [address], [address] [address] Phone [phone] Care Team Providers Care Vac Press Operator Name Role Phone Sourav Loisroberta ESQUIVEL AUTM Eugene Harrison AUTM [phone] Problems Active Problems Provider Date Essential hypertension Jermaine Li DO Onset: 5 Social History Type Date Description Comments Sex Unknown ETOH Use Occasionally consumes alcohol Tobacco Use Start: Unknown Denies Smoking Allergies, Adverse Reactions, Alerts Active Allergies Criticality Reaction | Severity Comments Date Ceruminex Unable to assess criticality ear drops 04/24/2015 Medications Active Medications SIG Qnty Indications Ordering Provide r Date Gabapentin 100mg Capsules 1 by mouth three times a day 540caps Jace Perez MD 12/25/2020 Meloxicam 15mg Tablets 1 by mouth every day with food or milk 180tabs Jace Perez MD 021 Dilantin 30mg Capsules Unknown Xanax 1mg Tablets one pill 3 times a day as needed for anxiety Unknown Fluoxetine HCL (PMDD) 10mg Tablets M47.26 Unknown Vitamin D-3 25mcg (1000 Ut) Capsul es 1 by mouth every day M47.26 Unknown Immunizations Description No Information Available Vital Signs Date Vital Result Comment 03/19/2020 8:14am Body Temperature 96.5 F Height 59 inches 4'11" Weight 195.50 lb BMI (Body Mass Index) 39.5 kg/m2 01/14/2020 2:48pm Body Temperature 97.5 F Results Test Acquired Date Facility Test Result H/L Range Note Laboratory test finding [facility] [address] [place] [address] (315)- - Blood Urea Nitrogen 14 mg/dL Normal 7-18 Creatinine With GFR 12/11/2020 [facility] [address] [place] [address] ([phone] - Creatinine For GFR 0.60 mg/dL Normal 0.55-1.30 Glomerular Filtration Rate > 60.0 Normal >45 1 1 Units are mL/min/1.73 m2 Chronic Kidney Disease Staging per NKF: Stage I & II GFR >=60 Normal to Mildly Decreased Stage III GFR 30-59 Moderately Decreased Stage IV GFR 15-29 Severely Decreased Stage V GFR <15 Very Little GFR Left ESRD GFR <15 on 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 Procedures Date Code Description Status 12/25/2020 [id number] Phone Evaluation/Management By Tyree maxwell 5-10 Mins Completed Medical Devices Description No Information Available Encounters Type Date Location Provider Dx Diagnosis Office Visit 12/25/2020 1:40p [place] LEONEL Greene M54.16 Radiculopathy, lumbar region M54.5 Low back pain Assessments Date Code Description Provider 12/25/2020 M54.16 Radiculopathy, lumbar region LEONEL Lerma 12/25/2020 M54.5 Low back pain LEONEL Greene Plan of Treatment No Information Available Functional Status Description No Information Available Mental Status Description No Information Available Referrals Description No Information Available
--- OUTSIDE RECORDS SUMMARY | 2021-02-11 10:36 | CCD | Continuity of Care Document ---
Author Author Mali COLLINS P.A. Organization Unknown Address [address] [place] [address] Phone [phone] Care Team Providers Care Crutch Maker Name Role Phone Lois Benjamin D.O. AUTM AUTV Unavailable Problems Active Problems Provider Date Mild [...] times a day as needed 17gm Ita SetphensO . Vitamin D3 2000Unit Capsules daily Unknown Xanax XR 1mg Tablets ER 24HR 1 tab by mouth four times a day Unknown 0 Immunizations CPT Code Status Date Vaccine Lot # [id number] Given 05/17/2019 Prevnar 13 [id number] Given 05/17/2019 Prevnar 13 [id number] Vital Signs Date Vital Result Comment 01/29/2021 2:40pm BP Systolic 160 mmHg Rechecked 138 /86 BP Diastolic 90 mmHg Rechecked 138/86 Heart Rate 74 /min O2 % BldC Oximetry 97 % Height 61 inches 5'1" Weight 199.00 lb BMI (Body Mass Index) 37.6 kg/m2 [place] Body Weight 105 lb Weight 90.266 kg BSA (Body Surface Area) 1.88 m2 07/10/2020 11:22am BP Systolic 130 mmHg BP Diastolic 80 mmHg Heart Rate 65 /min O2 % BldC Oximetry 98 % Body Temperature 97.3 F Height 61 inches 5'1" Weight 206.00 lb BMI (Body Mass Index) 38.9 kg/m2 [place] Body Weight 105 lb Weight 93.442 kg BSA (Body Surface Area) 1.91 m2 Results Test Acquired Date Facility Test Result H/L Range Note FVL/[place] 01/29/2021 [facility] SEE IMAGE FVC-Pred 2.77 L FVC-Pre 1.69 L FVC-%Pred-Pre 60 L FVC-LLN 2.14 L Fev1-Pred 2.11 L Fev1-Pre 1.45 L Fev1-%Pred-Pre 68 L Fev1-LLN 1.58 L Fev6-Pred 2.65 L Fev6-Pre 1.69 L Fev6-%Pred-Pre 63 L Fev6-LLN 2.04 L Zpq9smj-Cejv 77 % Gxl7zha-Zgw 86 % Nyl4snl-%Pred-Pre 111 % Fcf7smu-WUR 67 % Zlr6nmz-Jzqy 96 % Egt9hvp-Vym 100 % Zdw3aas-%Pred-Pre 104 % FEFMax-Pred 5.48 L/E/sec FEFMax-Pre 5.23 L/E/sec FEFMax-%Pred-Pre 95 L/E/sec FEFMax-LLN 3.92 L/E/sec Ami4087-Jdjy 1.92 L/E/sec Utb0756-Xsk 1.95 L/E/sec Mpj7293-%Pred-Pre 101 L/E/sec Ecf5508-WNH 0.79 L/E/sec ExpTime-Pre 6.02 sec Mwt6idl8-Dwcf 80 % Sfk0xjk3-Pxy 86 % Qtt6kqa4-%Pred-Pre 107 % Qmp9fmo8-EMG 71 % Procedures Description No Information Available Medical Devices Description No Information Available Encounters Description No Information Available Assessments Date Code Description Provider 01/29/2021 J45.30 Mild persistent asthma Roland gonzalez, P.A. Plan of Treatment Future Appointment(s):* 07/28/2021 11:30 am - Kamaljit Lepe D.O. at [facility] Pulmonary/Th[facility] 01/29/2021 - Roland Collins, P.A.* J45.30 Mild persistent asthma * * New Labs:* FVL/Roberts, Ordered: 01/29/21 * Follow up:* Follow up in 6 months with tung Functional Status Functional Condition Comment Date Status Independent with all ADL's Activ e Independent with all IADL's Acti ve Mental Status Mental Condition Comment Date Status None Active Can understand information Activ e Referrals Description No Information Available
--- OUTSIDE RECORDS SUMMARY | 2021-02-11 10:36 | CCD | Continuity of Care Document ---
Author Author Mali AGUILAR P.A.-C. Organization Unknown Address [address] [place] [address] Phone [phone] Care Team Providers Care Applications Sales Representative Name Role Phone Lois Benjamin DO AUTM Problems Description No Information Available Social History Type Date Description Comments Sex Unknown Allergies, Adverse Reactions, Alerts Active Allergies Criticality Reaction | Severity Comments Date Ceruminex Ear Drops Unable to assess criticality local reaction 12/14/2013 Valproic Acid Unable to assess criticality severe dry heaves, fatigue 04/25/2019 Inactive Allergies NKDA Unable to assess criticality 08/22/2017 Medications Active Medications SIG Qnty Indications Ordering Provide r Date Baclofen 10mg Tablets 1 po tid prn 30tabs M62.838 Cristina Judge M.D. 12/11/2020 Medrol 4mg TBPK take d osepak as directed 1pack M54.2 Cristina Judge M.D. 12/11/2020 Dilantin 100mg Capsules Take One Capsule By Mouth Twice A Day 60caps Cristina Judge M.D. 6 Xanax XR 1mg Tablets ER 24HR Unknown Immunizations Description No Information Available Vital Signs Date Vital Result Comment 12/11/2020 7:41am BP Systolic 110 mmHg BP Diastolic 80 mmHg Heart Rate 80 /min Respiratory Rate 16 /min 01/11/2020 8:42am BP Systolic 110 mmHg BP Diastolic 78 mmHg Heart Rate 76 /min Respiratory Rate 16 /min Results Test Acquired Date Facility Test Result H/L Range Note Laboratory test finding 12/26/2020 [facility] Phenytoin (Dilantin) 9.3 UG/ML Low 10.0-20.0 CBC With Differential 07/14/2020 [facility] White Blood Count 7.1 10 Normal 4.0-10.0 Red Blood Count 4.15 10 Normal 4.00-5.40 Hemoglobin 12.2 g/dL Normal 12.0-15.5 Hematocrit 39.0 % Normal 36.0-47.0 Mean Corpuscular Volume 94.0 fl Normal 80.0-96.0 Mean Corpuscular Hemoglobin 29.4 pg Normal 27.0-33.0 Mean Corpuscular HGB Conc 31.3 g/dL Low 32.0-36.5 Red Cell Distribution Width 14.6 % High 11.5-14.5 Platelet Count, Automated 209 10 Normal 150-450 Neutrophils % 53.5 % Normal 36.0-66.0 Lymph % 32.2 % Normal 24.0-44.0 [place] % 9.1 % High 2.0-8.0 Eos % 4.2 % High 0.0-3.0 Baso % 0.7 % Normal 0.0-1.0 Immature Granulocyte % 0.3 % Normal 0-3.0 Nucleated Red Blood Cell % 0.0 % Normal 0-0 Neutrophils # 3.8 10 Normal 1.5-8.5 Lymph # 2.3 10 Normal 1.5-5.0 [place] # 0.7 10 Normal 0.0-0.8 Eos # 0.3 10 Normal 0.0-0.5 Baso # 0.1 10 Normal 0.0-0.2 Comprehensive Metabolic Profil 07/14/2020 [facility] Glucose, Fasting 79 mg/dL Normal 70-100 Blood Urea Nitrogen 17 mg/dL Normal 7-18 Creatinine For GFR 0.61 mg/dL Normal 0.55-1.30 Glomerular Filtration Rate > 60.0 Normal >45 1 Sodium Level 140 mEq/L Normal 136-145 Potassium Serum 4.5 mEq/L Normal 3.5-5.1 Chloride Level 107 mEq/L Normal 98-107 Carbon Dioxide Level 28 mEq/L Normal 21-32 Anion Gap 5 mEq/L Low 8-16 Calcium Level 8.1 mg/dL Low 8.8-10.2 Ast/Sgot 18 U/L Normal 7-37 Alt/SGPT 18 U/L Normal 12-78 Alkaline Phosphatase 145 U/L High 45-117 Bilirubin,Total 0.1 mg/dL Low 0.2-1.0 Total Protein 6.6 GM/DL Normal 6.4-8.2 Albumin 3.0 GM/DL Low 3.2-5.2 Albumin/Globulin Ratio 0.8 Low 1.2-2.2 Laboratory test finding 07/14/2020 [facility] Phenytoin (Dilantin) 10.3 UG/ML Normal 10.0-20.0 1 Units are mL/min/1.73 m2 Chronic Kidney Disease Staging per NKF: Stage I & II GFR >=60 Normal to Mildly Decreased Stage III GFR 30-59 Moderately Decreased Stage IV GFR 15-29 Severely Decreased Stage V GFR <15 Very Little GFR Left ESRD GFR <15 on PET HANDLER Procedures Date Code Description Status 12/11/2020 19146 Office/Outpatient Established Mo d MDM 30-39 Min Completed 07/10/2020 51186 Phone Evaluation/Management By Tyree maxwell 5-10 Mins Completed Medical Devices Description No Information Available Encounters Type Date Location Provider Dx Diagnosis Office Visit 12/11/2020 11:15a Main office - [place] Tyree Lopes.A.-C. 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 12/11/2020 G44.219 Episodic tension-type headache, not intractable Tyree Santizo.A.-C. 12/11/2020 Q28.2 Arteriovenous malformation of ce rebral vessels Jessica Aguilar P.A.-C. 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 12/11/2020 F41.1 Generalized anxiety disorder Roz Aguilar P.A.-C. 12/11/2020 M54.2 Cervicalgia Jessica Aguilar, P.A.-C. 12/11/2020 M62.838 Other muscle spasm Jessica arreaga P.A.-C. 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 10/14/2020 G44.219 Episodic tension-type headache, not intractable Jessica Aguilar, P.A.-C. 10/14/2020 G43.009 Migraine without aura, not intra ctable, without status migra Jessica Aguilar, P.A.-C. 10/14/2020 F41.1 Generalized anxiety disorder Roz Aguilar P.A.-C. 07/10/2020 G43.009 Migraine without aura, not intra ctable, without status migra Jessica Aguilar P.A.-C. 07/10/2020 G44.219 Episodic tension-type headache, not intractable Jessica Aguilar, P.A.-C. 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 07/10/2020 F41.1 Generalized anxiety disorder Roz Aguilar P.A.-C. Plan of Treatment Future Appointment(s):* 02/24/2021 8:30 am - Jessica Aguilar P.A.-C. at Main office [facility] 12/11/2020 - Jessica Aguilar P.A.-C.* G43.009 Migraine without aura, not intractable, without status migra* Comments:* Not recurrent. * G44.219 Episodic tension-type headache, not intractable* Comments:* Controlled. * Q28.2 Arteriovenous malformation of cerebral vessels* Comments:* S/p surgery. 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 Repeat Dilantin level. * F41.1 Generalized anxiety disorder* Comments:* Follow up with Dr Valeds. * M54.2 Cervicalgia* New Medication:* Medrol 4 mg - take dosepak as directed * Comments:* Add Medrol as directed. She continues gabapentin and Mobic. Schedule cervical CT due to neck pain with recent fall. * M62.838 Other muscle spasm* New Medication:* Baclofen 10 mg - 1 po tid prn * Comments:* Add baclofen as directed. * Follow up:* 8 weeks Functional Status Description No Information Available Mental Status Description No Information Available Referrals Description No Information Available"
--- OUTSIDE RECORDS SUMMARY | 2021-02-11 10:36 | CCD | Continuity of Care Document ---
Author Author Mali COLLINS P.A. Organization Unknown Address [address] [place] [address] Phone [phone] Care Team Providers Care Critical Care Cns Name Role Phone Lois Benjamin D.O. AUTM AUTE Unavailable Problems Active Problems Provider Date Mild [...] CPT Code Status Date Vaccine Lot # [id number] Given 05/17/2019 Prevnar 13 11255 Given 05/17/2019 Prevnar 13 [id number] Vital Signs Date Vital Result Comment 01/29/2021 2:40pm BP Systolic 160 mmHg Rechecked 138 /86 BP Diastolic 90 mmHg Rechecked 138/86 Heart Rate 74 /min O2 % BldC Oximetry 97 % Height 61 inches 5'1" Weight 199.00 lb BMI (Body Mass Index) 37.6 kg/m2 [place] Body Weight 105 lb Weight 90.266 kg BSA (Body Surface Area) 1.88 m2 07/10/2020 11:22am BP Systolic 130 mmHg BP Diastolic 80 mmHg Heart Rate 65 /min O2 % BldC Oximetry 98 % Body Temperature 97.3 F Height 61 inches 5'1" Weight 206.00 lb BMI (Body Mass Index) 38.9 kg/m2 [place] Body Weight 105 lb Weight 93.442 kg BSA (Body Surface Area) 1.91 m2 Results Test Acquired Date Facility Test Result H/L Range Note FVL/[place] 01/29/2021 [facility] SEE IMAGE FVC-Pred 2.77 L FVC-Pre 1.69 L FVC-%Pred-Pre 60 L FVC-LLN 2.14 L Fev1-Pred 2.11 L Fev1-Pre 1.45 L Fev1-%Pred-Pre 68 L Fev1-LLN 1.58 L Fev6-Pred 2.65 L Fev6-Pre 1.69 L Fev6-%Pred-Pre 63 L Fev6-LLN 2.04 L Use4trp-Jxqn 77 % Rxi7vtu-Pmv 86 % Isg6rjx-%Pred-Pre 111 % Bza9hkr-DSW 67 % Lok7whk-Clds 96 % Lgd1ybv-Ksk 100 % Dql7wrj-%Pred-Pre 104 % FEFMax-Pred 5.48 L/E/sec FEFMax-Pre 5.23 L/E/sec FEFMax-%Pred-Pre 95 L/E/sec FEFMax-LLN 3.92 L/E/sec Zcm7897-Tgsm 1.92 L/E/sec Vlz1887-Jvw 1.95 L/E/sec Pxj7425-%Pred-Pre 101 L/E/sec Swj1349-LYV 0.79 L/E/sec ExpTime-Pre 6.02 sec Zvx7pqx6-Nedh 80 % Grk5pgp3-Nce 86 % Squ1cwv2-%Pred-Pre 107 % Eqb3itq2-CME 71 % Procedures Description No Information Available Medical Devices Description No Information Available Encounters Description No Information Available Assessments Date Code Description Provider 01/29/2021 J45.30 Mild persistent asthma Roland gonzalez, P.A. Plan of Treatment Future Appointment(s):* 07/28/2021 11:30 am - Kamaljit Lepe D.O. at [facility] Pulmonary/Thoracic 01/29/2021 - Roland Collins, P.A.* J45.30 Mild persistent asthma * * New Labs:* FVL/[place], Ordered: 01/29/21 * Follow up:* Follow up in 6 months with tung Functional Status Functional Condition Comment Date Status Independent with all ADL's Activ e Independent with all IADL's Acti ve Mental Status Mental Condition Comment Date Status None Active Can understand information Activ e Referrals Description No Information Available
--- OUTSIDE RECORDS SUMMARY | 2021-02-11 10:36 | CCD | Continuity of Care Document ---
Author Author Mali COLLINS P.A. Organization Unknown Address [address] [place] [address] Phone [phone] Care Team Providers Care Electrical Installation Inspector Name Role Phone Lois Benjamin D.O. AUTM [phone] AUTJ Unavailable Problems Active Problems Provider Date Mild [...] CPT Code Status Date Vaccine Lot # [id number] Given 05/17/2019 Prevnar 13 [id number] Given 05/17/2019 Prevnar 13 [id number] Vital Signs Date Vital Result Comment 01/29/2021 2:40pm BP Systolic 160 mmHg Rechecked 138 /86 BP Diastolic 90 mmHg Rechecked 138/86 Heart Rate 74 /min O2 % BldC Oximetry 97 % Height 61 inches 5'1" Weight 199.00 lb BMI (Body Mass Index) 37.6 kg/m2 [place] Body Weight 105 lb Weight 90.266 kg BSA (Body Surface Area) 1.88 m2 07/10/2020 11:22am BP Systolic 130 mmHg BP Diastolic 80 mmHg Heart Rate 65 /min O2 % BldC Oximetry 98 % Body Temperature 97.3 F Height 61 inches 5'1" Weight 206.00 lb BMI (Body Mass Index) 38.9 kg/m2 [place] Body Weight 105 lb Weight 93.442 kg BSA (Body Surface Area) 1.91 m2 Results Test Acquired Date Facility Test Result H/L Range Note FVL/[place] 01/29/2021 [facility] SEE IMAGE FVC-Pred 2.77 L FVC-Pre 1.69 L FVC-%Pred-Pre 60 L FVC-LLN 2.14 L Fev1-Pred 2.11 L Fev1-Pre 1.45 L Fev1-%Pred-Pre 68 L Fev1-LLN 1.58 L Fev6-Pred 2.65 L Fev6-Pre 1.69 L Fev6-%Pred-Pre 63 L Fev6-LLN 2.04 L Bvj4tln-Kaqa 77 % Cxe5lqd-Eib 86 % Ikb4fnw-%Pred-Pre 111 % Afn3glb-UJQ 67 % Gbk6sqo-Ifim 96 % Aam3may-Hql 100 % Weh0fst-%Pred-Pre 104 % FEFMax-Pred 5.48 L/E/sec FEFMax-Pre 5.23 L/E/sec FEFMax-%Pred-Pre 95 L/E/sec FEFMax-LLN 3.92 L/E/sec Iah7367-Ndmh 1.92 L/E/sec Ddi8597-Kvm 1.95 L/E/sec Fsx6480-%Pred-Pre 101 L/E/sec Nuv7838-RZO 0.79 L/E/sec ExpTime-Pre 6.02 sec Xqz7bsk0-Gudw 80 % Hzw7amr5-Fyb 86 % Xfd3brs5-%Pred-Pre 107 % Rvs9bjd6-LXO 71 % Procedures Date Code Description Status 01/29/2021 29532 Office/Outpatient Established Lo w MDM 20-29 Min Completed 01/29/2021 86047 Spirometry Completed Medical Devices Description No Information Available Encounters Type Date Location Provider Dx Diagnosis Office Visit 01/29/2021 3:00p [facility] Pulmonary/Thoracic Roland Collins, P.A. J45.30 Mild persistent asthma, uncomplicated Assessments Date Code Description Provider 01/29/2021 J45.30 Mild persistent asthma Roland gonzalez, P.A. Plan of Treatment Future Appointment(s):* 07/28/2021 11:30 am - Kamaljit Lepe D.O. at [facility] Pulmonary/Thoracic 01/29/2021 - Roland Collins, P.A.* J45.30 Mild persistent asthma * * New Labs:* FVL/[place], Ordered: 01/29/21 * Follow up:* Follow up in 6 months with charbel Functional Status Functional Condition Comment Date Status Independent with all ADL's Activ e Independent with all IADL's Acti ve Mental Status Mental Condition Comment Date Status None Active Can understand information Activ e Referrals Description No Information Available
--- OUTSIDE RECORDS SUMMARY | 2021-02-11 10:36 | CCD | Continuity of Care Document ---
Author Author Mali COLLINS P.A. Organization Unknown Address [address] [place] [address] Phone [phone] Care Team Providers Care Paragliding Instructor Name Role Phone Lois Benjamin D.O. AUTM [...] CPT Code Status Date Vaccine Lot # [id number] Given 05/17/2019 Prevnar 13 [id number] Given 05/17/2019 Prevnar 13 [id number] Vital Signs Date Vital Result Comment 01/29/2021 2:40pm BP Systolic 160 mmHg Rechecked 138 /86 BP Diastolic 90 mmHg Rechecked 138/86 Heart Rate 74 /min O2 % BldC Oximetry 97 % Height 61 inches 5'1" Weight 199.00 lb BMI (Body Mass Index) 37.6 kg/m2 [place] Body Weight 105 lb Weight 90.266 kg BSA (Body Surface Area) 1.88 m2 07/10/2020 11:22am BP Systolic 130 mmHg BP Diastolic 80 mmHg Heart Rate 65 /min O2 % BldC Oximetry 98 % Body Temperature 97.3 F Height 61 inches 5'1" Weight 206.00 lb BMI (Body Mass Index) 38.9 kg/m2 [place] Body Weight 105 lb Weight 93.442 kg BSA (Body Surface Area) 1.91 m2 Results Test Acquired Date Facility Test Result H/L Range Note FVL/[place] 01/29/2021 [facility] PD[facility] SEE IMAGE FVC-Pred 2.77 L FVC-Pre 1.69 L FVC-%Pred-Pre 60 L FVC-LLN 2.14 L Fev1-Pred 2.11 L Fev1-Pre 1.45 L Fev1-%Pred-Pre 68 L Fev1-LLN 1.58 L Fev6-Pred 2.65 L Fev6-Pre 1.69 L Fev6-%Pred-Pre 63 L Fev6-LLN 2.04 L Ikb3ojr-Asvs 77 % Wwj2jye-Ivz 86 % Msl1zmy-%Pred-Pre 111 % Xab2jva-DOA 67 % Cpg0jbz-Jfxw 96 % Pss7ewz-Zlm 100 % Kku1chf-%Pred-Pre 104 % FEFMax-Pred 5.48 L/E/sec FEFMax-Pre 5.23 L/E/sec FEFMax-%Pred-Pre 95 L/E/sec FEFMax-LLN 3.92 L/E/sec Jfh8214-Kebi 1.92 L/E/sec Cni4727-Tti 1.95 L/E/sec Qnp3620-%Pred-Pre 101 L/E/sec Oti3588-BWT 0.79 L/E/sec ExpTime-Pre 6.02 sec Mzi1tkr0-Dpta 80 % Orr3thx5-Sck 86 % Dpo8piv7-%Pred-Pre 107 % Nua7pxe0-PET 71 % Procedures Description No Information Available Medical Devices Description No Information Available Encounters Description No Information Available Assessments Date Code Description Provider 01/29/2021 J45.30 Mild persistent asthma Roland gonzalez, P.A. Plan of Treatment Future Appointment(s):* 07/28/2021 11:30 am - Kamaljit Lepe D.O. at [facility] Pulmonary/Thoracic 01/29/2021 - Roland Collins, P.A.* J45.30 Mild persistent asthma * * New Labs:* FVL/[place], Ordered: 01/29/21 * Follow up:* Follow up in 6 months with tung Functional Status Functional Condition Comment Date Status Independent with all ADL's Activ e Independent with all IADL's Acti ve Mental Status Mental Condition Comment Date Status None Active Can understand information Activ e Referrals Description No Information Available
--- OUTSIDE RECORDS SUMMARY | 2021-02-11 10:36 | CCD | Continuity of Care Document ---
Author Author Mali COLLINS P.A. Organization Unknown Address [address] [place] [address] Phone [phone] Care Team Providers Care Physical Therapy Instructor Name Role Phone Lois Benjamin D.O. AUTM AUTW Unavailable Problems Active Problems Provider Date Mild [...] CPT Code Status Date Vaccine Lot # [id number] Given 05/17/2019 Prevnar 13 [id number] Given 05/17/2019 Prevnar 13 [id number] Vital Signs Date Vital Result Comment 01/29/2021 2:40pm BP Systolic 160 mmHg Rechecked 138 /86 BP Diastolic 90 mmHg Rechecked 138/86 Heart Rate 74 /min O2 % BldC Oximetry 97 % Height 61 inches 5'1" Weight 199.00 lb BMI (Body Mass Index) 37.6 kg/m2 [place] Body Weight 105 lb Weight 90.266 kg BSA (Body Surface Area) 1.88 m2 07/10/2020 11:22am BP Systolic 130 mmHg BP Diastolic 80 mmHg Heart Rate 65 /min O2 % BldC Oximetry 98 % Body Temperature 97.3 F Height 61 inches 5'1" Weight 206.00 lb BMI (Body Mass Index) 38.9 kg/m2 [place] Body Weight 105 lb Weight 93.442 kg BSA (Body Surface Area) 1.91 m2 Results Test Acquired Date Facility Test Result H/L Range Note FVL/[place] 01/29/2021 [facility] SEE IMAGE FVC-Pred 2.77 L FVC-Pre 1.69 L FVC-%Pred-Pre 60 L FVC-LLN 2.14 L Fev1-Pred 2.11 L Fev1-Pre 1.45 L Fev1-%Pred-Pre 68 L Fev1-LLN 1.58 L Fev6-Pred 2.65 L Fev6-Pre 1.69 L Fev6-%Pred-Pre 63 L Fev6-LLN 2.04 L Vls3sec-Hiyw 77 % Ndy0hbr-Yky 86 % Gnl7leu-%Pred-Pre 111 % Gwa2bvw-VDA 67 % Gqu1guy-Eyyq 96 % Xuh5dlt-Ubc 100 % Vfq5ufh-%Pred-Pre 104 % FEFMax-Pred 5.48 L/E/sec FEFMax-Pre 5.23 L/E/sec FEFMax-%Pred-Pre 95 L/E/sec FEFMax-LLN 3.92 L/E/sec Qqw3224-Ukak 1.92 L/E/sec Mcz2198-Eqe 1.95 L/E/sec Xti6765-%Pred-Pre 101 L/E/sec Cqo6830-XZI 0.79 L/E/sec ExpTime-Pre 6.02 sec Avs4wlq3-Ygbz 80 % Kbi3rll2-Qng 86 % Vag2cny3-%Pred-Pre 107 % Qbe2qbf8-JBR 71 % Procedures Description No Information Available Medical Devices Description No Information Available Encounters Description No Information Available Assessments Date Code Description Provider 01/29/2021 J45.30 Mild persistent asthma Roland gonzalez, P.A. Plan of Treatment Future Appointment(s):* 07/28/2021 11:30 am - Kamaljit Lepe D.O. at [facility] Pulmonary/Thoracic 01/29/2021 - Roland Collins, P.A.* J45.30 Mild persistent asthma * * New Labs:* FVL/[place], Ordered: 01/29/21 * Follow up:* Follow up in 6 months with tung Functional Status Functional Condition Comment Date Status Independent with all ADL's Activ e Independent with all IADL's Acti ve Mental Status Mental Condition Comment Date Status None Active Can understand information Activ e Referrals Description No Information Available
--- OUTSIDE RECORDS SUMMARY | 2021-02-11 10:36 | CCD | Continuity of Care Document ---
Author Author Mali COLLINS P.A. Organization Unknown Address [address] [place] [address] Phone [phone] Care Team Providers Care Scientific Informatics Leader Name Role Phone Lois Benjamin D.O. AUTM AUTN Unavailable Problems Active Problems Provider Date Mild [...] CPT Code Status Date Vaccine Lot # [id number] Given 05/17/2019 Prevnar 13 [id number] Given 05/17/2019 Prevnar 13 [id number] Vital Signs Date Vital Result Comment 01/29/2021 2:40pm BP Systolic 160 mmHg Rechecked 138 /86 BP Diastolic 90 mmHg Rechecked 138/86 Heart Rate 74 /min O2 % BldC Oximetry 97 % Height 61 inches 5'1" Weight 199.00 lb BMI (Body Mass Index) 37.6 kg/m2 [place] Body Weight 105 lb Weight 90.266 kg BSA (Body Surface Area) 1.88 m2 07/10/2020 11:22am BP Systolic 130 mmHg BP Diastolic 80 mmHg Heart Rate 65 /min O2 % BldC Oximetry 98 % Body Temperature 97.3 F Height 61 inches 5'1" Weight 206.00 lb BMI (Body Mass Index) 38.9 kg/m2 [place] Body Weight 105 lb Weight 93.442 kg BSA (Body Surface Area) 1.91 m2 Results Test Acquired Date Facility Test Result H/L Range Note FVL/[place] 01/29/2021 [facility]ep[facility] SEE IMAGE FVC-Pred 2.77 L FVC-Pre 1.69 L FVC-%Pred-Pre 60 L FVC-LLN 2.14 L Fev1-Pred 2.11 L Fev1-Pre 1.45 L Fev1-%Pred-Pre 68 L Fev1-LLN 1.58 L Fev6-Pred 2.65 L Fev6-Pre 1.69 L Fev6-%Pred-Pre 63 L Fev6-LLN 2.04 L Dtc9aik-Zzap 77 % Fea8smw-Faz 86 % Uav8yyz-%Pred-Pre 111 % Swf4oax-EBV 67 % Def2nzb-Wuib 96 % Tuf1oww-Efw 100 % Cmn0nhr-%Pred-Pre 104 % FEFMax-Pred 5.48 L/E/sec FEFMax-Pre 5.23 L/E/sec FEFMax-%Pred-Pre 95 L/E/sec FEFMax-LLN 3.92 L/E/sec Ehb8701-Gohh 1.92 L/E/sec Pvw2517-Yzk 1.95 L/E/sec Qmm0348-%Pred-Pre 101 L/E/sec Hxq4526-KQQ 0.79 L/E/sec ExpTime-Pre 6.02 sec Tpi6bps5-Iopd 80 % Hmj8zni2-Rhq 86 % Eoh9zbc5-%Pred-Pre 107 % Hef3bou5-RHE 71 % Procedures Description No Information Available Medical Devices Description No Information Available Encounters Description No Information Available Assessments Date Code Description Provider 01/29/2021 J45.30 Mild persistent asthma Roland gonzalez, P.A. Plan of Treatment Future Appointment(s):* 07/28/2021 11:30 am - Kamaljit Lepe D.O. at [facility] Pulmonary/Thoracic 01/29/2021 - Roland Collins, P.A.* J45.30 Mild persistent asthma * * New Labs:* FVL/[place], Ordered: 01/29/21 * Follow up:* Follow up in 6 months with tung Functional Status Functional Condition Comment Date Status Independent with all ADL's Activ e Independent with all IADL's Acti ve Mental Status Mental Condition Comment Date Status None Active Can understand information Activ e Referrals Description No Information Available
--- OUTSIDE RECORDS SUMMARY | 2021-02-11 10:37 | CCD | Continuity of Care Document ---
Author Author Mali AGUILAR P.A.-C. Organization Unknown Address [address] [place] [address] Phone [phone] Care Team Providers Care File Clerk Data Entry Name Role Phone Lois Benjamin DO AUTM [...] Available Vital Signs Date Vital Result Comment 01/11/2020 8:42am BP Systolic 110 mmHg BP Diastolic 78 mmHg Heart Rate 76 /min Respiratory Rate 16 /min 04/02/2019 6:40am BP Systolic 130 mmHg BP Diastolic 80 mmHg Heart Rate 68 /min Respiratory Rate 16 /min Results Test Acquired Date Facility Test Result H/L Range Note CBC With Differential 07/14/2020 [facility] White Blood Count 7.1 10 Normal [...] 36.0-66.0 Lymph % 32.2 % Normal 24.0-44.0 [place] % 9.1 % High 2.0-8.0 Eos % 4.2 % High 0.0-3.0 Baso % 0.7 % Normal 0.0-1.0 Immature Granulocyte % 0.3 % Normal 0-3.0 Nucleated Red Blood Cell % 0.0 % Normal 0-0 Neutrophils # 3.8 10 Normal 1.5-8.5 Lymph # 2.3 10 Normal 1.5-5.0 [place] # 0.7 10 Normal 0.0-0.8 Eos # 0.3 10 Normal 0.0-0.5 Baso # 0.1 10 Normal 0.0-0.2 Comprehensive Metabolic Profil 07/14/2020 [facility] Glucose, Fasting 79 mg/dL Normal 70-100 [...] 0.8 Low 1.2-2.2 Laboratory test finding 07/14/2020 [facility] Phenytoin (Dilantin) 10.3 UG/ML Normal 10.0-20.0 1 Units are mL/min/1.73 m2 Chronic Kidney Disease Staging per NKF: Stage I & II GFR >=60 Normal to Mildly Decreased Stage III GFR 30-59 Moderately Decreased Stage IV GFR 15-29 Severely Decreased Stage V GFR <15 Very Little GFR Left ESRD GFR <15 on 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 10/14/2020 G44.219 Episodic tension-type headache, not intractable Jessica Aguilar, P.A.-C. 10/14/2020 G43.009 Migraine without aura, not intra ctable, without status migra Jessica Aguilar P.A.-C. 10/14/2020 F41.1 Generalized anxiety disorder Roz Aguilar P.A.-C. 07/10/2020 G43.009 Migraine without aura, not intra ctable, without status migra Jessica Aguilar P.A.-C. 07/10/2020 G44.219 Episodic tension-type headache, not intractable Jessica Aguilar P.A.-C. 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 07/10/2020 F41.1 Generalized anxiety disorder Roz Aguilar P.A.-C. 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
--- OUTSIDE RECORDS SUMMARY | 2021-02-11 10:37 | CCD | Continuity of Care Document ---
Author Organization Unknown Address Unknown Phone Unavailable Care Team Providers Care Drill Press Hand Name Role Phone Lois Benjamin D.O. AUTM [phone] Jessica Aguilar AUTM [phone] Problems Active Problems Provider Date Generalized anxiety disorder Lois Benjamin D.O. Onse t: 03/10/2016 Migraine without aura, not refractory Lois Benjamin D.O. Onset: 03/10/2016 Congenital anomaly of cerebrovascular system Lois lopez D.O. Onset: 03/10/2016 Obstructed diaphragmatic hernia Lois Benjamin D.O. O nset: 03/10/2016 Screening mammography Lois Benjamin D.O. Onset: 02/17 Open-angle glaucoma Lois Benjamin D.O. Onset: 2015 Other seizures Lois Benjamin D.O. Onset: 2016 Liver function tests abnormal Lois Benjamin D.O. Ons et: 05/03/2016 Vitamin D deficiency Lois Benjamin D.O. 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 Onset: 0 08/11/2018 Moderate persistent asthma Lois Benjamin D.O. Onset: 08/14/2019 Social History Type Date Description Comments Sex Unknown ETOH Use Denies alcohol use Tobacco Use Start: Unknown Patient has never smoked Recreational Drug Use Denies Drug Use Smoking Status Reviewed: 08/13/20 Patient has never smoked Exercise Type/Frequency Walks sporadically Sun Exposure Does not use sunscreen Seat Belt/Car Seat Always uses seat belt Allergies, Adverse Reactions, Alerts Active Allergies Criticality Reaction | Severity Comments Date Cerruminex Ear Drops Unable to assess criticality Ear Swelling 03/10/2016 Medications Active Medications SIG Qnty Indications Ordering Provide r Date Vitamin D (Ergocalciferol) 50mcg (2000 Ut) Capsules Take One Capsule By Mouth Every Day 90caps Lois Benjamin D.O. 10/01/2020 Calcium 600+D [id number] Table ts 1 tab by mouth twice a day 60tabs Lois Benjamin D.O. 08/18/2020 Gabapentin 300mg Capsules take one capsule by mouth three times daily as needed 60caps M79.604 Lois Tesfaye D.O. 12/12/2019 Dilantin 100mg Capsules 1 tab by mouth in the morning and 2 tabs at night Unknown Fluoxetine HCL 10mg Capsules 3 by mouth daily Unknown Hydroxyzine HCL 50mg Tablets 1 tablet nightly as needed for sleep Unknown Proair HFA 108(90Base) mcg/Act Aer osol 2 puffs every 4-6 hours as needed Unknown Symbicort 160-4.5mcg/Act Aerosol inhale two puffs by mouth twice a day Unknown 0 Xanax XR 1mg Tablets ER 24HR 1 tablet by mouth four times day as needed istop#: [id number] Unknown Meloxicam 15mg Tablets take one tablet by mouth daily as needed Unknown Medications Administered in Office Medication SIG Qnty Indications Ordering Provider Date Injection Methylprednisolone Acetate 80 MG Injection Lois Benjamin D.O. 0 10/06/2017 Therapeutic, Prophylactic Or Diagnostic Injection Subq/Im Injection Ita OnealOWinston 10/06/2017 Immunizations Description No Information Available Vital Signs Date Vital Result Comment 08/14/2020 11:01am BP Systolic 132 mmHg BP Diastolic 84 mmHg Height 58.0 inches 4'10" Weight 205.00 lb BMI (Body Mass Index) 42.8 kg/m2 Respiratory Rate 16 /min Body Temperature 98.1 F O2 % BldC Oximetry 99 % [place] Body Weight 100 lb 02/13/2020 11:00am BP Systolic 124 mmHg BP Diastolic 80 mmHg Height 58.0 inches 4'10" Weight 192.38 lb BMI (Body Mass Index) 40.2 kg/m2 Heart Rate 72 /min Respiratory Rate 16 /min Body Temperature 97.1 F O2 % BldC Oximetry 98 % [place] Body Weight 100 lb Results Test Acquired Date Facility Test Result H/L Range Note Laboratory test finding 12/26/2020 [facility] Outpatient T esting (Registration) [address] [place] [phone] Phenytoin (Dilantin) 9.3 UG/ML Low 10.0-20.0 Laboratory test finding 12/11/2020 [facility] Outpatient T esting (Registration) [address] [place] [phone] Blood Urea Nitrogen 14 mg/dL Normal 7-18 Creatinine With GFR 12/11/2020 [facility] Outpatient Testi ng (Registration) [address] [place], [place] [id number] [phone] Creatinine For GFR 0.60 mg/dL Normal 0.55-1.30 Glomerular Filtration Rate > 60.0 Normal >45 1 CBC With Differential 07/14/2020 [facility] Outpatient Sherrell ting (Registration) [address] [place] [address] [phone] White Blood Count 7.1 10 Normal 4.0-10.0 [...] 36.0-66.0 Lymph % 32.2 % Normal 24.0-44.0 [place] % 9.1 % High 2.0-8.0 Eos % 4.2 % High 0.0-3.0 Baso % 0.7 % Normal 0.0-1.0 Immature Granulocyte % 0.3 % Normal 0-3.0 Nucleated Red Blood Cell % 0.0 % Normal 0-0 Neutrophils # 3.8 10 Normal 1.5-8.5 Lymph # 2.3 10 Normal 1.5-5.0 [place] # 0.7 10 Normal 0.0-0.8 Eos # 0.3 10 Normal 0.0-0.5 Baso # 0.1 10 Normal 0.0-0.2 Comprehensive Metabolic Profil 07/14/2020 [facility] Outpa tient Testing (Registration) [address] [place] [phone] Glucose, Fasting 79 mg/dL Normal 70-100 Blood Urea Nitrogen 17 mg/dL Normal 7-18 Creatinine For GFR 0.61 mg/dL Normal 0.55-1.30 Glomerular Filtration Rate > 60.0 Normal >45 2 Sodium Level 140 mEq/L Normal 136-145 Potassium [...] 0.8 Low 1.2-2.2 Laboratory test finding 07/14/2020 [facility] Outpatient T esting (Registration) [address] [place] [phone] Phenytoin (Dilantin) 10.3 UG/ML Normal 10.0-20.0 1 Units are mL/min/1.73 m2 Chronic Kidney Disease Staging per NKF: Stage I & II GFR >=60 Normal to Mildly Decreased Stage III GFR 30-59 Moderately Decreased Stage IV GFR 15-29 Severely Decreased Stage V GFR <15 Very Little GFR Left ESRD GFR <15 on [employer] 2 Units are mL/min/1.73 m2 Chronic Kidney Disease Staging per NKF: Stage I & II GFR >=60 Normal to Mildly Decreased Stage III GFR 30-59 Moderately Decreased Stage IV GFR 15-29 Severely Decreased Stage V GFR <15 Very Little GFR Left ESRD GFR <15 on [employer] Procedures Date Code Description Status 08/18/2020 [id number] Mammogram Completed Medical Devices Description No Information Available Encounters Type Date Location Provider Dx Diagnosis Office Visit 08/14/2020 11:00a [facility] LEONEL Oliver Z00.00 Encntr for general adult med ical exam w/o abnormal findings J45.40 Moderate persistent asthma, uncomplicated F41.1 Generalized anxiety disorder G43.009 Migraine w/o aura, not intra ctable, w/o status migrainosus E55.9 Vitamin D deficiency, unspec ified G40.89 Other seizures Z12.31 Encntr screen mammogram for malignant neoplasm of breast Z13.820 Encounter for screening for osteoporosis Assessments Date Code Description Provider 08/14/2020 Z00.00 Encounter for genera l adult medical examination without abnormal findings LEONEL Oliver 08/14/2020 J45.40 Moderate persistent asthma, unco mplicated LEONEL Oliver 08/14/2020 F41.1 Generalized anxiety disorder LEONEL Dickerson 08/14/2020 G43.009 Migraine without aur a, not intractable, without status migrainosus LEONEL Oliver 08/14/2020 E55.9 Vitamin D deficiency, unspecifie d LEONEL Oliver 08/14/2020 G40.89 Other seizures LEONEL Oliver 08/14/2020 Z12.31 Encounter for screen ing mammogram for malignant neoplasm of breast LEONEL Oliver 08/14/2020 Z13.820 Encounter for screening for oste oporosis LEONEL Oliver Plan of Treatment Future Appointment(s):* 02/13/2021 10:40 am - Lois Benjamin D.O. at [facility] Functional Status Description No Information Available Mental Status Description No Information Available Referrals Description No Information Available
--- OUTSIDE RECORDS SUMMARY | 2021-02-11 10:37 | CCD | Continuity of Care Document ---
Author Author Mali RICCI PA Organization Unknown Address [address] [place] [address], [address] [address] Phone [phone] Care Team Providers Care Pet Feeder Name Role Phone Sourav Loisroberta ESQUIVEL AUTM [phone] Eugene Harrison AUTM [phone] Problems Active Problems Provider Date Essential hypertension [...] H/L Range Note Laboratory test finding [facility] [address] [place] [address] [phone] Blood Urea Nitrogen 14 mg/dL Normal 7-18 Creatinine With GFR 12/11/2020 [facility] [address] [place] [address] [phone] Creatinine For GFR 0.60 mg/dL Normal 0.55-1.30 Glomerular Filtration Rate > 60.0 Normal >45 1 1 Units are mL/min/1.73 m2 Chronic Kidney Disease Staging per NKF: Stage I & II GFR >=60 Normal to Mildly Decreased Stage III GFR 30-59 Moderately Decreased Stage IV GFR 15-29 Severely Decreased Stage V GFR <15 Very Little GFR Left ESRD GFR <15 on [employer] Procedures Date Code Description Status 12/25/2020 51042 Office/Outpatient Established Lo w MDM 20-29 Min Completed Medical Devices Description No Information Available Encounters Type Date Location Provider Dx Diagnosis Office Visit 12/25/2020 1:40p [place] LEONEL Greene M54.16 Radiculopathy, lumbar region M54.5 Low back pain Assessments Date Code Description Provider 12/25/2020 M54.16 Radiculopathy, lumbar region LEONEL Lerma 12/25/2020 M54.5 Low back pain LEONEL Greene Plan of Treatment No Information Available Functional Status Description No Information Available Mental Status Description No Information Available Referrals Description No Information Available
--- OUTSIDE RECORDS SUMMARY | 2021-02-11 10:37 | CCD | Continuity of Care Document ---
Author Author Mali BENJAMIN D.O. Organization Unknown Address [email or web address] [place] [address] Phone [phone] Care Team Providers Care Patent Law Specialist Name Role Phone Lois Benjamin D.O. AUTM Jessica Aguilar AUTM [phone] Problems Active Problems Provider Date Generalized anxiety [...] Provide r Date Vitamin D (Ergocalciferol) 50mcg (1999 Ut) Capsules Take One Capsule By Mouth Every Day 90caps Jac Agudelo.O. 10/01/2020 Calcium 600+D [id number] Table ts 1 tab by mouth twice a day 60tabs Jac Agudelo.O. 08/18/2020 Gabapentin 300mg Capsules take one capsule by mouth three times daily as needed 60caps M79.604 Jac Elliott.O. 12/12/2019 Dilantin 100mg Capsules 1 tab by [...] mouth four times day as needed istop#: [id number] Unknown Meloxicam 15mg Tablets take one tablet by mouth daily as needed Unknown Medications Administered in Office Medication SIG Qnty Indications Ordering Provider Date Injection Methylprednisolone Acetate 80 MG Injection Ita AgudeloO. 0 10/06/2017 Therapeutic, Prophylactic Or Diagnostic Injection Subq/Im Injection Ita OnealOWinston 10/06/2017 Immunizations Description No Information Available Vital Signs Date Vital Result Comment 08/14/2020 11:01am BP Systolic 132 mmHg BP Diastolic 84 mmHg Height 58.0 inches 4'10" Weight 205.00 lb BMI (Body Mass Index) 42.8 kg/m2 Respiratory Rate 16 /min Body Temperature 98.1 F O2 % BldC Oximetry 99 % [place] Body Weight 100 lb 02/13/2020 11:00am BP Systolic 124 mmHg BP Diastolic 80 mmHg Height 58.0 inches 4'10" Weight 192.38 lb BMI (Body Mass Index) 40.2 kg/m2 Heart Rate 72 /min Respiratory Rate 16 /min Body Temperature 97.1 F O2 % BldC Oximetry 98 % [place] Body Weight 100 lb Results Test Acquired Date Facility Test Result H/L Range Note Laboratory test finding 12/11/2020 [facility] Outpatient T esting (Registration) [address] [place] [address] [phone] Blood Urea Nitrogen 14 mg/dL Normal 7-18 Creatinine With GFR 12/11/2020 [facility] Outpatient Testi ng (Registration) [address] [place] [address] [phone] Creatinine For GFR 0.60 mg/dL Normal 0.55-1.30 Glomerular Filtration Rate > 60.0 Normal >45 1 CBC With Differential 07/14/2020 [facility] Outpatient Sherrell ting (Registration) [address] [place] [address] [phone] White Blood Count 7.1 10 Normal 4.0-10.0 [...] 36.0-66.0 Lymph % 32.2 % Normal 24.0-44.0 [place] % 9.1 % High 2.0-8.0 Eos % 4.2 % High 0.0-3.0 Baso % 0.7 % Normal 0.0-1.0 Immature Granulocyte % 0.3 % Normal 0-3.0 Nucleated Red Blood Cell % 0.0 % Normal 0-0 Neutrophils # 3.8 10 Normal 1.5-8.5 Lymph # 2.3 10 Normal 1.5-5.0 [place] # 0.7 10 Normal 0.0-0.8 Eos # 0.3 10 Normal 0.0-0.5 Baso # 0.1 10 Normal 0.0-0.2 Comprehensive Metabolic Profil 07/14/2020 [facility] Outpa tient Testing (Registration) [address] [place] [phone] Glucose, Fasting 79 mg/dL Normal 70-100 Blood [...] 0.8 Low 1.2-2.2 Laboratory test finding 07/14/2020 [facility] Outpatient T esting (Registration) [address] [place] [address] [phone] Phenytoin (Dilantin) 10.3 UG/ML Normal 10.0-20.0 1 Units are mL/min/1.73 m2 Chronic Kidney Disease Staging per NKF: Stage I & II GFR >=60 Normal to Mildly Decreased Stage III GFR 30-59 Moderately Decreased Stage IV GFR 15-29 Severely Decreased Stage V GFR <15 Very Little GFR Left ESRD GFR <15 on ORTHODONTIST 2 Units are mL/min/1.73 m2 Chronic Kidney Disease Staging per NKF: Stage I & II GFR >=60 Normal to Mildly Decreased Stage III GFR 30-59 Moderately Decreased Stage IV GFR 15-29 Severely Decreased Stage V GFR <15 Very Little GFR Left ESRD GFR <15 on ORTHODONTIST Procedures Date Code Description Status 08/18/2020 [id number] Mammogram Completed Medical Devices Description No Information [...] 10:40 am - Lois Benjamin D.O. at [facility] Functional Status Description No Information Available Mental Status Description No Information Available Referrals Description No Information Available
--- OUTSIDE RECORDS SUMMARY | 2021-02-11 10:37 | CCD | Continuity of Care Document ---
Author Author Mali AGUILAR P.A.-C. Organization Unknown Address [address] [place] [address] Phone [phone] Care Team Providers Care Chro Name Role Phone Lois Benjamin DO AUTM [...] H/L Range Note CBC With Differential 07/14/2020 [facility] White Blood Count 7.1 10 Normal [...] 36.0-66.0 Lymph % 32.2 % Normal 24.0-44.0 [place] % 9.1 % High 2.0-8.0 Eos % 4.2 % High 0.0-3.0 Baso % 0.7 % Normal 0.0-1.0 Immature Granulocyte % 0.3 % Normal 0-3.0 Nucleated Red Blood Cell % 0.0 % Normal 0-0 Neutrophils # 3.8 10 Normal 1.5-8.5 Lymph # 2.3 10 Normal 1.5-5.0 [place] # 0.7 10 Normal 0.0-0.8 Eos # 0.3 10 Normal 0.0-0.5 Baso # 0.1 10 Normal 0.0-0.2 Comprehensive Metabolic Profil 07/14/2020 [facility] Glucose, Fasting 79 mg/dL Normal 70-100 [...] 0.8 Low 1.2-2.2 Laboratory test finding 07/14/2020 [facility] Phenytoin (Dilantin) 10.3 UG/ML Normal 10.0-20.0 1 Units are mL/min/1.73 m2 Chronic Kidney Disease Staging per NKF: Stage I & II GFR >=60 Normal to Mildly Decreased Stage III GFR 30-59 Moderately Decreased Stage IV GFR 15-29 Severely Decreased Stage V GFR <15 Very Little GFR Left ESRD GFR <15 on [employer]ING [employer] SUPER[employer] Procedures Date Code Description Status 12/11/2020 52599 Office/Outpatient Established Mo d MDM 30-39 Min Completed 07/10/2020 [id number] Phone Evaluation/Management By Tyree maxwell 5-10 Mins Completed Medical Devices Description No Information Available Encounters Type Date Location Provider Dx Diagnosis Office Visit 12/11/2020 11:15a Main office - [place] Tyree Lopes.A.-CWinston G43.009 Migraine w/o aura, not intractable, w/o status migrainosus G44.219 Episodic tension-type headac he, not intractable Q28.2 Arteriovenous malformation o f cerebral vessels G40.309 Gen idiopathic epilepsy, not intractable, w/o stat epi F41.1 Generalized anxiety disorder M54.2 Cervicalgia M62.838 Other muscle spasm Office Visit 07/10/2020 1:30p Main office - [place] Tyree Lopes.A.-C. 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 12/11/2020 F41.1 Generalized anxiety disorder Roz Aguilar P.A.-C. 12/11/2020 M54.2 Cervicalgia Jessica Aguilar P.A.-C. 12/11/2020 M62.838 Other muscle spasm Jessica arreaga P.A.-C. 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 10/14/2020 G44.219 Episodic tension-type headache, not intractable Jessica Aguilar P.A.-C. 10/14/2020 G43.009 Migraine without aura, not intra ctable, without status migra Jessica Agiular P.A.-C. 10/14/2020 F41.1 Generalized anxiety disorder Roz Aguilar P.A.-C. 07/10/2020 G43.009 Migraine without aura, not intra ctable, without status migra Jessica Aguilar, P.A.-C. 07/10/2020 G44.219 Episodic tension-type headache, not intractable Jessica Aguilar P.A.-C. 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 07/10/2020 F41.1 Generalized anxiety disorder Tyree Peters.A.-CWinston Plan of Treatment Future Appointment(s):* 02/24/2021 8:30 am - Jessica Aguilar P.A.-C. at Main office [facility] 12/11/2020 - Jessica J. Trickey, P.A.-C.* G43.009 Migraine without aura, not intractable, without status migra* Comments:* Not recurrent. * G44.219 Episodic tension-type headache, not intractable* Comments:* Controlled. * Q28.2 Arteriovenous malformation of cerebral vessels* Comments:* S/p surgery. 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 Repeat Dilantin level. * F41.1 Generalized anxiety disorder* Comments:* Follow up with Dr Valdes. * M54.2 Cervicalgia* New Medication:* Medrol 4 [...]
--- OUTSIDE RECORDS SUMMARY | 2021-02-11 10:38 | CCD ---
Author Author [facility] Organization [facility] Address Unknown Phone Unavailable Care Team Providers Care Pot Liner Name Role Phone NO, PCP Unavailable Unavailable Escalera, Sea Unavailable Unavailable Escalera, Sea Unavailable Unavailable Escalera, Sea Unavailable Unavailable Escalera, Sea Unavailable Unavailable Escalera, Sea Unavailable Unavailable Escalera, Sea Unavailable Unavailable Escalera, Sea Unavailable Unavailable Escalera, Sea Unavailable Unavailable Escalera, Sea Unavailable Unavailable Escalera, Sea Unavailable Unavailable Escalera, Sea Unavailable Unavailable Escalera, Sea Unavailable Unavailable Escalera, Sea Unavailable Unavailable Escalera, Sea Unavailable Unavailable Escalera, Sea Unavailable Unavailable Escalera, Sea Unavailable Unavailable Escalear, Sea Unavailable Unavailable Escalera, Sea Unavailable Unavailable Escalera, Sea Unavailable Unavailable Escalera, Sea Unavailable Unavailable Escalera, Sea Unavailable Unavailable Escalera, Sea Unavailable Unavailable Escalera, Sea Unavailable Unavailable Escalera, Sea Unavailable Unavailable Escalera, Sea Unavailable Unavailable Escalera, Sea Unavailable Unavailable Escalera, Sea Unavailable Unavailable Escalera, Sea Unavailable Unavailable Escalera, Sea Unavailable Unavailable Escalera, Sea Unavailable Unavailable Escalera, Sea Unavailable Unavailable Escalera, Sea Unavailable Unavailable Escalera, Sea Unavailable Unavailable Escalera, Sea Unavailable Unavailable Escalera, Sea Unavailable Unavailable Escalera, Sea Unavailable Unavailable Escalera, Sea Unavailable Unavailable Escalera, Sea Unavailable Unavailable Escalera, Sea Unavailable Unavailable Escalera, Sea Unavailable Unavailable Escalera, Sea Unavailable Unavailable Escalera, Sea Unavailable Unavailable Escalera, Sea Unavailable Unavailable Escalera, Sea Unavailable Unavailable Escalera, Sea Unavailable Unavailable Geovanna Perez, PAIfeanyiC Unavailable Unavailabl e FishGeovanna, PA-C Unavailable Unavailabl e FishGeovanna, PAIfeanyiC Unavailable Unavailabl e Fish, Geovanna SILVEIRA, PA-C Unavailable Unavailabl e Fish, [facility], PA-C Unavailable Unavailabl e Fish, [facility], PA-C Unavailable Unavailabl e Fish, [facility], PA-C Unavailable Unavailabl e Fish, [facility], PA-C Unavailable Unavailabl e Fish, [facility], PA-C Unavailable Unavailabl e Fish, [facility], PA-C Unavailable Unavailabl e Fish, [facility], PA-C Unavailable Unavailabl e Fish, [facility], PA-C Unavailable Unavailabl e Fish, [facility], PA-C Unavailable Unavailabl e Fish, [facility], PA-C Unavailable Unavailabl e Fish, [facility], PA-C Unavailable Unavailabl e Fish, [facility], PA-C Unavailable Unavailabl e Fish, [facility], PA-C Unavailable Unavailabl e Fish, [facility], PA-C Unavailable Unavailabl e Fish, [facility], PA-C Unavailable Unavailabl e Fish, [facility], PA-C Unavailable Unavailabl e Fish, [facility], PA-C Unavailable Unavailabl e Fish, [facility], PA-C Unavailable Unavailabl e Fish, [facility], PA-C Unavailable Unavailabl e Fish, [facility], PA-C Unavailable Unavailabl e Fish, [facility], PA-C Unavailable Unavailabl e Fish, [facility], PA-C Unavailable Unavailabl e Fish, [facility], PA-C Unavailable Unavailabl e Fish, [facility], PA-C Unavailable Unavailabl e Fish, [facility], PA-C Unavailable Unavailabl e Fish, [facility], PA-C Unavailable Unavailabl e Fish, [facility], PA-C Unavailable Unavailabl e Fish, [facility], PA-C Unavailable Unavailabl e Fish, [facility], PA-C Unavailable Unavailabl e Fish, [facility], PA-C Unavailable Unavailabl e Fish, [facility], PA-C Unavailable Unavailabl e Fish, [place] Edie MPAS, PA-C Unavailable Unavailabl e LETTIERE, A CASSANDRA PA Unavailable Unavailable LETTIERE, A CASSANDRA PA Unavailable Unavailable LETTIERE, A CASSANDRA PA Unavailable Unavailable LETTIERE, A CASSANDRA PA Unavailable Unavailable LETTIERE, A CASSANDRA PA Unavailable Unavailable LETTIERE, A CASSANDRA PA Unavailable Unavailable LETTIERE, A CASSANDRA PA Unavailable Unavailable LETTIERE, A CASSANDRA PA Unavailable Unavailable LETTIERE, A CASSANDRA PA Unavailable Unavailable LETTIERE, A CASSANDRA PA Unavailable Unavailable LETTIERE, A CASSANDRA PA Unavailable Unavailable LETTIERE, A CASSANDRA PA Unavailable Unavailable LETTIERE, A CASSANDRA PA Unavailable Unavailable LETTIERE, A CASSANDRA PA Unavailable Unavailable LETTIERE, A CASSANDRA PA Unavailable Unavailable LETTIERE, A CASSANDRA PA Unavailable Unavailable LETTIERE, A CASSANDRA PA Unavailable Unavailable LETTIERE, A CASSANDRA PA Unavailable Unavailable LETTIERE, A CASSANDRA PA Unavailable Unavailable LETTIERE, A CASSANDRA PA Unavailable Unavailable LETTIERE, A CASSANDRA PA Unavailable Unavailable LETTIERE, A CASSANDRA PA Unavailable Unavailable LETTIERE, A CASSANDRA PA Unavailable Unavailable LETTIERE, A CASSANDRA PA Unavailable Unavailable LETTIERE, A CASSANDRA PA Unavailable Unavailable LETTIERE, A CASSANDRA PA Unavailable Unavailable LETTIERE, A CASSANDRA PA Unavailable Unavailable LETTIERE, A CASSANDRA PA Unavailable Unavailable LETTIERE, A CASSANDRA PA Unavailable Unavailable LETTIERE, A CASSANDRA PA Unavailable Unavailable LETTIERE, A CASSANDRA PA Unavailable Unavailable Ann Espinoza MD Unavailable Unavailable Ann Espinoza MD Unavailable Unavailable Ann Espinoza MD Unavailable Unavailable Ann Espinoza MD Unavailable Unavailable Ann Espinoza MD Unavailable Unavailable Ann Espinoza MD Unavailable Unavailable Ann Espinoza MD Unavailable Unavailable Ann Espinoza MD Unavailable Unavailable Ann Espinoza MD Unavailable Unavailable Ann Espinoza MD Unavailable Unavailable Ann Espinoza MD Unavailable Unavailable Ann Espinoza MD Unavailable Unavailable Ann Espinoza MD Unavailable Unavailable Ann Espinoza MD Unavailable Unavailable Ann Espinoza MD Unavailable Unavailable Ann Espinoza MD Unavailable Unavailable AlexisAnn shultz MD Unavailable Unavailable Ann Espinoza MD Unavailable Unavailable Ann Espinoza MD Unavailable Unavailable Ann Espinoza MD Unavailable Unavailable Ann Espinoza MD Unavailable Unavailable Ann Espinoza MD Unavailable Unavailable Ann Espinoza MD Unavailable Unavailable Ann Espinoza MD Unavailable Unavailable AlexisAnn MD Unavailable Unavailable AlexisAnn shultz MD Unavailable Unavailable AlexisAnn shultz MD Unavailable Unavailable AlexisAnn shultz MD Unavailable Unavailable AlexisAnn shultz MD Unavailable Unavailable AlexisAnn shultz MD Unavailable Unavailable AlexisAnn shultz MD Unavailable Unavailable AlexisAnn shultz MD Unavailable Unavailable AlexisAnn shultz MD Unavailable Unavailable AlexisAnn MD Unavailable Unavailable Boy, Jace PA Unavailable Unavailable Boy, Jace PA Unavailable Unavailable Boy, Jace PA Unavailable Unavailable Boy, Jace PA Unavailable Unavailable Boy, Jace PA Unavailable Unavailable Boy, Jace PA Unavailable Unavailable Boy, Jace PA Unavailable Unavailable Boy, Jace PA Unavailable Unavailable Boy, Jace PA Unavailable Unavailable Boy, Jace PA Unavailable Unavailable Boy, Jace PA Unavailable Unavailable Boy, Jace PA Unavailable Unavailable Boy, Jace PA Unavailable Unavailable Boy, Jace PA Unavailable Unavailable Boy, Jace PA Unavailable Unavailable Boy, Jace PA Unavailable Unavailable Boy, Jace PA Unavailable Unavailable Boy, Jace PA Unavailable Unavailable Boy, Jace PA Unavailable Unavailable Boy, Jace PA Unavailable Unavailable Boy, Jace PA Unavailable Unavailable Boy, Jace PA Unavailable Unavailable Boy, Jace PA Unavailable Unavailable Boy, Jace PA Unavailable Unavailable Boy, Jace PA Unavailable Unavailable Boy, Jace PA Unavailable Unavailable Boy, Jace PA Unavailable Unavailable Oby, Jace PA Unavailable Unavailable Boy, Jace PA Unavailable Unavailable Boy, Jace PA Unavailable Unavailable Boy, Jace PA Unavailable Unavailable Boy, Jace PA Unavailable Unavailable Boy, Jace PA Unavailable Unavailable Boy, Jace PA Unavailable Unavailable Boy, Jace PA Unavailable Unavailable Boy, Jace PA Unavailable Unavailable Boy, Jace PA Unavailable Unavailable Boy, Jace PA Unavailable Unavailable Boy, Jace PA Unavailable Unavailable Boy, Jace PA Unavailable Unavailable Boy, Jace PA Unavailable Unavailable Boy, Jace PA Unavailable Unavailable Boy, Jace PA Unavailable Unavailable Boy, Jace PA Unavailable Unavailable Boy, Jace PA Unavailable Unavailable Boy, Jace PA Unavailable Unavailable Boy, Jace PA Unavailable Unavailable Boy, Jace PA Unavailable Unavailable Boy, Jace PA Unavailable Unavailable Boy, Jace PA Unavailable Unavailable Boy, Jace PA Unavailable Unavailable Boy, Jace PA Unavailable Unavailable Boy, Jace PA Unavailable Unavailable Boy, Jace PA Unavailable Unavailable JARRELL-LAURA, KENROY DO Unavailable Unavailable JARRELL-LAURA, KENROY DO Unavailable Unavailable JARRELL-LAURA, KENROY DO Unavailable Unavailable JARRELL-LAURA, KENROY DO Unavailable Unavailable JARRELL-LAURA, KENROY DO Unavailable Unavailable JARRELL-LAURA, KENROY DO Unavailable Unavailable JARRELL-LAURA, KENROY DO Unavailable Unavailable JARRELL-LAURA, KENROY DO Unavailable Unavailable JARRELL-LAURA, KENROY DO Unavailable Unavailable JARRELL-LAURA, KENROY DO Unavailable Unavailable JARRELL-LAURA, KENROY DO Unavailable Unavailable JARRELL-LAURA, KENROY DO Unavailable Unavailable JARRELL-LAURA, KENROY DO Unavailable Unavailable JARRELL-LAURA, KENROY DO Unavailable Unavailable JARRELL-LAURA, KENROY DO Unavailable Unavailable JARRELL-LAURA, KENROY DO Unavailable Unavailable JARRELL-LAURA, KENROY DO Unavailable Unavailable JARRELL-LAURA, KENROY DO Unavailable Unavailable JARRELL-LAURA, KENROY DO Unavailable Unavailable JARRELL-LAURA, KENROY DO Unavailable Unavailable JARRELL-LAURA, KENROY DO Unavailable Unavailable JARRELL-LAURA, KENROY DO Unavailable Unavailable JARRELL-LAURA, KENROY DO Unavailable Unavailable JARRELL-LAURA, KENROY DO Unavailable Unavailable JARRELL-LAURA, KENROY DO Unavailable Unavailable JARRELL-LAURA, KENROY DO Unavailable Unavailable JARRELL-LAURA, KENROY DO Unavailable Unavailable JARRELL-LAURA, KENROY DO Unavailable Unavailable JARRELL-LAURA, KENROY DO Unavailable Unavailable JARRELL-LAURA, KENROY DO Unavailable Unavailable JARRELL-LAURA, KENROY DO Unavailable Unavailable JARRELL-LAURA, KENROY DO Unavailable Unavailable JARRELL-LAURA, KENROY DO Unavailable Unavailable JARRELL-LAURA, KENROY DO Unavailable Unavailable JARRELL-LAURA, KENROY DO Unavailable Unavailable JARRELL-LAURA, KENROY DO Unavailable Unavailable JARRELL-LAURA, KENROY DO Unavailable Unavailable JARRELL-LAURA, KENROY DO Unavailable Unavailable JARRELL-LAURA, KENROY DO Unavailable Unavailable JARRELL-LAURA, KENROY DO Unavailable Unavailable JARRELL-LAURA, KENROY DO Unavailable Unavailable JARRELL-LAURA, KENROY DO Unavailable Unavailable JARRELL-LAURA, KENROY DO Unavailable Unavailable JARRELL-LAURA, KENROY DO Unavailable Unavailable JARRELL-LAURA, KENROY DO Unavailable Unavailable JARRELL-LAURA, KENROY DO Unavailable Unavailable JARRELL-LAURA, KENROY DO Unavailable Unavailable JARRELL-LAURA, KENROY DO Unavailable Unavailable JARRELL-LAURA, KENROY DO Unavailable Unavailable JARRELL-LAURA, KENROY DO Unavailable Unavailable JARRELL-LAURA, KENROY DO Unavailable Unavailable JARRELL-LAURA, KERNOY DO Unavailable Unavailable JARRELL-LAURA, KENROY DO Unavailable Unavailable JARRELL-LAURA, KENROY DO Unavailable Unavailable JARRELL-LAURA, KENROY DO Unavailable Unavailable JARRELL-LAURA, KENROY DO Unavailable Unavailable JARRELL-LAURA, KENROY DO Unavailable Unavailable JARRELL-LAURA, KENROY DO Unavailable Unavailable JARRELL-LAURA, KENROY DO Unavailable Unavailable JARRELL-LAURA, KENROY DO Unavailable Unavailable JARRELL-LAURA, KENROY DO Unavailable Unavailable JARRELL-LAURA, KENROY DO Unavailable Unavailable JARRELL-LAURA, KENROY DO Unavailable Unavailable JARRELL-LAURA, KENROY DO Unavailable Unavailable JARRELL-LAURA, KENROY DO Unavailable Unavailable JARRELL-LAURA, KENROY DO Unavailable Unavailable JARRELL-LAURA, KENROY DO Unavailable Unavailable JARRELL-LAURA, KENROY DO Unavailable Unavailable JARRELL-LAURA, KENROY DO Unavailable Unavailable JARRELL-LAURA, KENROY DO Unavailable Unavailable JARRELL-LAURA, KENROY DO Unavailable Unavailable JARRELL-LAURA, KENROY DO Unavailable Unavailable JARRELL-LAURA, KENROY DO Unavailable Unavailable JARRELL-LAURA, KENROY DO Unavailable Unavailable JARRELL-LAURA, KENROY DO Unavailable Unavailable JARRELL-LAURA, KENROY DO Unavailable Unavailable JARRELL-LAURA, KENROY DO Unavailable Unavailable JARRELL-LAURA, KENROY DO Unavailable Unavailable JARRELL-LAURA, KENROY DO Unavailable Unavailable JARRELL-LAURA, KENROY DO Unavailable Unavailable JARRELL-LAURA, KENROY DO Unavailable Unavailable JARRELL-LAURA, KENROY DO Unavailable Unavailable JARRELL-LAURA, KENROY DO Unavailable Unavailable JARRELL-LAURA, KENROY DO Unavailable Unavailable Trickey, J Jessica PA Unavailable Unavailable Trickey, J Jessica PA Unavailable Unavailable Trickey, J Jessica PA Unavailable Unavailable Trickey, J Jessica PA Unavailable Unavailable Trickey, J Jessica PA Unavailable Unavailable Trickey, J Jessica PA Unavailable Unavailable Trickey, J Jessica PA Unavailable Unavailable Trickey, J Jessica PA Unavailable Unavailable Trickey, J Jessica PA Unavailable Unavailable Trickey, J Jessica PA Unavailable Unavailable Trickey, J Jessica PA Unavailable Unavailable Trickey, J Jessica PA Unavailable Unavailable Trickey, J Jessica PA Unavailable Unavailable Trickey, J Jessica PA Unavailable Unavailable Trickey, J Jessica PA Unavailable Unavailable Trickey, J Jessica PA Unavailable Unavailable Trickey, J Jessica PA Unavailable Unavailable Trickey, J Jessica PA Unavailable Unavailable Trickey, J Jessica PA Unavailable Unavailable Trickey, J Jessica PA Unavailable Unavailable Trickey, J Jessica PA Unavailable Unavailable Trickey, J Jessica PA Unavailable Unavailable Trickey, J Jessica PA Unavailable Unavailable Trickey, J Jessica PA Unavailable Unavailable Trickey, J Jessica PA Unavailable Unavailable Trickey, J Jessica PA Unavailable Unavailable Trickey, J Jessica PA Unavailable Unavailable Trickey, J Jessica PA Unavailable Unavailable Trickey, J Jessica PA Unavailable Unavailable Trickey, J Jessica PA Unavailable Unavailable Trickey, J Jessica PA Unavailable Unavailable Trickey, J Jessica PA Unavailable Unavailable Trickey, J Jessica PA Unavailable Unavailable Trickey, J Jessica PA Unavailable Unavailable Trickey, J Jessica PA Unavailable Unavailable Trickey, J Jessica PA Unavailable Unavailable Trickey, J Jessica PA Unavailable Unavailable Trickey, J Jessica PA Unavailable Unavailable Trickey, J Jessica PA Unavailable Unavailable Trickey, J Jessica PA Unavailable Unavailable Trickey, J Jessica PA Unavailable Unavailable Trickey, J Jessica PA Unavailable Unavailable Trickey, J Jessica PA Unavailable Unavailable Trickey, J Jessica PA Unavailable Unavailable Trickey, J Jessica PA Unavailable Unavailable Trickey, J Jessica PA Unavailable Unavailable Trickey, J Jessica PA Unavailable Unavailable Trickey, J Jessica PA Unavailable Unavailable Trickey, J Jessica PA Unavailable Unavailable Tameka Menezes PA Unavailable Unavailable Tameka Menezes PA Unavailable Unavailable Tameka Menezes PA Unavailable Unavailable Tameka Menezes PA Unavailable Unavailable Tameka Menezes PA Unavailable Unavailable Menezes, M Barratt PA Unavailable Unavailable Emnezes, M Barratt PA Unavailable Unavailable Menezes, M Barratt PA Unavailable Unavailable Menezes, M Barratt PA Unavailable Unavailable Menezes, M Barratt PA Unavailable Unavailable Menezes, M Barratt PA Unavailable Unavailable Menezes, M Barratt PA Unavailable Unavailable Menezes, M Barratt PA Unavailable Unavailable Menezes, M Barratt PA Unavailable Unavailable Menezes, M Barratt PA Unavailable Unavailable Menezes, M Barratt PA Unavailable Unavailable Menezes, M Barratt PA Unavailable Unavailable Menezes, M Barratt PA Unavailable Unavailable Menezes, M Barratt PA Unavailable Unavailable Menezse, M Barratt PA Unavailable Unavailable Menezes, M Barratt PA Unavailable Unavailable Menezes, M Barratt PA Unavailable Unavailable Menezes, M Barratt PA Unavailable Unavailable Menezes, M Barratt PA Unavailable Unavailable Menezes, M Barratt PA Unavailable Unavailable Menezes, M Barratt PA Unavailable Unavailable Menezes, M Barratt PA Unavailable Unavailable Menezes, M Barratt PA Unavailable Unavailable Menezes, M Barratt PA Unavailable Unavailable DRAZEK, I QIAN PA Unavailable Unavailable DRAZEK, I QIAN PA Unavailable Unavailable DRAZEK, I QIAN PA Unavailable Unavailable DRAZEK, I QIAN PA Unavailable Unavailable DRAZEK, I QIAN PA Unavailable Unavailable DRAZEK, I QIAN PA Unavailable Unavailable DRAZEK, I QIAN PA Unavailable Unavailable DRAZEK, I QIAN PA Unavailable Unavailable DRAZEK, I QIAN PA Unavailable Unavailable DRAZEK, I QIAN PA Unavailable Unavailable DRAZEK, I QIAN PA Unavailable Unavailable DRAZEK, I QIAN PA Unavailable Unavailable DRAZEK, I QIAN PA Unavailable Unavailable DRAZEK, I QIAN PA Unavailable Unavailable DRAZEK, I QIAN PA Unavailable Unavailable DRAZEK, I QIAN PA Unavailable Unavailable DRAZEK, I QIAN PA Unavailable Unavailable DRAZEK, I QIAN PA Unavailable Unavailable DRAZEK, I QIAN PA Unavailable Unavailable DRAZEK, I QIAN PA Unavailable Unavailable DRAZEK, I QIAN PA Unavailable Unavailable DRAZEK, I QIAN PA Unavailable Unavailable DRAZEK, I QIAN PA Unavailable Unavailable DRAZEK, I QIAN PA Unavailable Unavailable DRAZEK, I QIAN PA Unavailable Unavailable DRAZEK, I QIAN PA Unavailable Unavailable DRAZEK, I QIAN PA Unavailable Unavailable DRAZEK, I QIAN PA Unavailable Unavailable DRAZEK, I QIAN PA Unavailable Unavailable DRAZEK, I QIAN PA Unavailable Unavailable PATTERSON, M DELLA PA Unavailable Unavailable PATTERSON, M DELLA PA Unavailable Unavailable PATTERSON, M DELLA PA Unavailable Unavailable PATTERSON, M DELLA PA Unavailable Unavailable PATTERSON, M DELLA PA Unavailable Unavailable PATTERSON, M DELLA PA Unavailable Unavailable PATTERSON, M DELLA PA Unavailable Unavailable PATTERSON, M DELLA PA Unavailable Unavailable PATTERSON, M DELLA PA Unavailable Unavailable PATTERSON, M DELLA PA Unavailable Unavailable PATTERSON, M DELLA PA Unavailable Unavailable PATTERSON, M DELLA PA Unavailable Unavailable PATTERSON, M DELLA PA Unavailable Unavailable PATTERSON, M DELLA PA Unavailable Unavailable PATTERSON, M DELLA PA Unavailable Unavailable PATTERSON, M DELLA PA Unavailable Unavailable PATTERSON, M DELLA PA Unavailable Unavailable PATTERSON, M DELLA PA Unavailable Unavailable PATTERSON, M DELLA PA Unavailable Unavailable PATTERSON, M DELLA PA Unavailable Unavailable PATTERSON, M DELLA PA Unavailable Unavailable PATTERSON, M DELLA PA Unavailable Unavailable PATTERSON, M DELLA PA Unavailable Unavailable PATTERSON, M DELLA PA Unavailable Unavailable PATTERSON, M DELLA PA Unavailable Unavailable PATTERSON, M DELLA PA Unavailable Unavailable PATTERSON, M DELLA PA Unavailable Unavailable PATTERSON, M DELLA PA Unavailable Unavailable PATTERSON, M DELLA PA Unavailable Unavailable PATTERSON, M DELLA PA Unavailable Unavailable PATTERSON, M DELLA PA Unavailable Unavailable PATTERSON, M DELLA PA Unavailable Unavailable PATTERSON, M DELLA PA Unavailable Unavailable PATTERSON, M DELLA PA Unavailable Unavailable PATTERSON, M DELLA PA Unavailable Unavailable Re-disclosure Warning The records that you are about to access may contain information from federally-assisted alcohol or drug abuse programs. If such information is present, then the following federally mandated warning applies: This information has been disclosed to you from records protected by federal confidentiality rules (42 CFR part 2). The federal rules prohibit you from making any further disclosure of this information unless further disclosure is expressly permitted by the written consent of the person to whom it pertains or as otherwise permitted by 42 CFR part 2. A general authorization for the release of medical or other information is NOT sufficient for this purpose. The Federal rules restrict any use of the information to criminally investigate or prosecute any alcohol or drug abuse patient.The records that you are about to access may contain highly sensitive health information, the redisclosure of which is protected by Article 27-F of the [facility] Public Health law. If you continue you may have access to information: Regarding HIV / AIDS; Provided by facilities licensed or operated by the [facility] Office of Mental Health; or Provided by the [facility] Office for People With Developmental Disabilities. If such information is present, then the following [facility] mandated warning applies: This information has been disclosed to you from confidential records which are protected by state law. State law prohibits you from making any further disclosure of this information without the specific written consent of the person to whom it pertains, or as otherwise permitted by law. Any unauthorized further disclosure in violation of state law may result in a fine or skilled nursing sentence or both. A general authorization for the release of medical or other information is NOT sufficient authorization for further disc losure. Allergies and Adverse Reactions Type Description Substance Reaction Status Data Source(s ) No Known Environmental Allergies No Known Environmental Al [facility] No Known Food Allergies No Known Food Allergies [facility] Family Member Name Family Member Gender Family Member Status Date o f Status Description Data Source(s) Unknown Female Problem [facility] ([facility] SMALL CELL Unknown Female Problem [facility] ([facility]) Unknown Female Problem [facility] ([facility]) Unknown Female Problem [facility] ([facility]) Unknown Female Problem [facility] ([facility]) Unknown Female Problem [facility] ([facility]) Encounters Encounter Providers Location Date Indications Data Source(s ) Outpatient Attender: DELLA Gallegos/Issa/Yash/Elva ziegler 01/29/2021 03:00:00 PM EDT [facility] ([facility] Office Visit Attender: QIAN CASTANEDA Physical Therapy 2020 01:40:00 PM EDT [facility] ([facility]) Outpatient Attender: Jessica CASTANEDA Main office - [facility] 12/11/2020 11:15:00 AM EDT [facility] ([facility]) Office Visit Attender: Jace CASTANEDA [facility] 08/14/2020 11:00:00 AM EDT [facility] ([facility]) Office Visit Attender: Jessica CASTANEDA Main office - [facility] 07/10/2020 01:30:00 PM EDT [facility] ([facility]) OFFICE OUTPATIENT VISIT 15 MINUTES Attender: QIAN CASTANEDA Phys ical Therapy 06/04/2020 12:20:00 PM EST [facility] ([facility]) OFFICE OUTPATIENT VISIT 15 MINUTES Attender: QIAN CASTANEDA Phys ical Therapy 04/21/2020 10:00:00 AM EST [facility] ([facility]) OFFICE OUTPATIENT NEW 30 MINUTES Attender: Sea Escalera Physical Therapy 03/19/2020 07:00:00 AM EST [facility] ([facility]) Outpatient Attender: KENROY WHITT DO [facility] 02/13/2020 11:00:00 AM EDT [facility] ([facility]) Outpatient Attender: QIAN CASTANEDA Physical Therapy 02/12/2020 1 0:00:00 AM EDT [facility] ([facility]) Outpatient Attender: QIAN CASTANEDA Physical Therapy 01/22/2020 1 1:00:00 AM EDT [facility] ([facility]) Outpatient Attender: Edie SILVEIRA PA-C Physical Therapy 01/18/2020 02:00:00 PM EDT [facility] ([facility]) Office Visit Attender: Darryl CASTANEDA Physical Therapy 03:00:00 PM EDT [facility] ([facility]) Outpatient Attender: Ann Espinoza MDConsultant: PCP NO 01/02/2020 09:30:00 AM EDT - 01/02/2020 01:31:00 PM EDT [facility] Patient discharged. OFFICE OUTPATIENT VISIT 15 MINUTES Attender: QIAN CASTANEDA Phys ical Therapy 12/28/2019 09:00:00 AM EDT [facility] ([facility]) Outpatient Attender: Ann Espinoza MDConsultant: PCP NO 12/26/2019 07:45:00 AM EDT - 12/26/2019 10:20:00 AM EDT [facility] Patient discharged. Outpatient Attender: QIAN CASTANEDA Physical Therapy 12/17/2019 0 9:30:00 AM EDT [facility] ([facility]) Outpatient Attender: CASSANDRA Harper chadnan 12/13/2019 02:35:00 PM EDT [facility] ([facility]) Immunizations Vaccine Date Status Description Data Source(s) COVID-19 VACCINE, MRNA-1273, LNP-S (MODERNA)/PF 06/10/2020 1 2:00:00 AM EST completed [facility] COVID-19 VACCINE Moderna 05/13/2020 12:00:00 AM EST completed [facility] Vaccine Series Complete: NOThis Data was Submitted to [facility]mnidrone. COVID-19 VACCINE, MRNA-1273, LNP-S (MODERNA)/PF 05/13/2020 1 2:00:00 AM EST completed [facility] VARICELLA-ZOSTER GE/AS01B/PF 02/15/2020 12:00:00 AM EDT completed [facility] INFLUENZA VIRUS VACCINE QUADRIVAL SPLIT 2020-21(65 YR UP)/PF 01/22/2020 12:00:00 AM EDT completed [facility] Medications Medication Brand Name Start Date Product Form Dose Route Admi nistrative Instructions Pharmacy Instructions Status Indications Reaction Description Data Source(s) 50 mcg (2,000 unit) 01/10/2021 12:00:00 AM EDT capsule 90 TAKE ONE CAPSULE BY MOUTH EVERY DAY TAKE ONE CAPSULE BY MOUTH EVERY DAY SOLD: 01/16/2021 [facility] 100 mg 01/09/2021 12:00:00 AM EDT capsule 270 TAKE ONE CAPSULE BY MOUTH THREE TIMES A DAY TAKE ONE CAPSULE BY MOUTH THREE TIMES A DAY SOLD: 01/16/2021 [facility] 1 mg 01/09/2021 12:00:00 AM EDT tablet 120 TAKE ONE TABLET BY MOUTH FOUR TIMES A DAY NEEDED FOR PANIC ATTACKS MAXIMUM DAILY DOSE = 4 TAKE ONE TABLET BY MOUTH FOUR TIMES A DAY NEEDED FOR PANIC ATTACKS MAXIMUM DAILY DOSE = 4 SOLD: 01/16/2021 [facility] 15 mg 01/01/2021 12:00:00 AM EDT tablet 90 TAKE ONE TABLET BY MOUTH EVERY DAY WITH FOOD OR MILK MAXIMUM DAILY DOSE = 1 TAKE ONE TABLET BY MOUTH EVERY DAY WITH FOOD OR MILK MAXIMUM DAILY DOSE = 1 SOLD: 01/01/2021 [facility] gabapentin 100 MG Oral Capsule Gabapentin 12/25/2020 12:00:00 AM EDT ORAL active [facility] ([facility]) 100 mg 12/19/2020 12:00:00 AM EDT capsule 90 TAKE ONE CAPSULE BY MOUTH THREE TIMES A DAY MAXIMUM DAILY DOSE = 3 TAKE ONE CAPSULE BY MOUTH THREE TIMES A DAY MAXIMUM DAILY DOSE = 3 SOLD: 12/23/2020 [facility] 10 mg 12/11/2020 12:00:00 AM EDT tablet 30 TAKE ONE TABLET BY MOUTH THREE TIMES A DAY NEEDED MAXIMUM DAILY DOSE = 3 TAKE ONE TABLET BY MOUTH THREE TIMES A DAY NEEDED MAXIMUM DAILY DOSE = 3 SOLD: 01/16/2021 [facility] 4 mg 12/11/2020 12:00:00 AM EDT tablets,dose pack 21 DIRECTED WITH FOOD DIRECTED WITH FOOD SOLD: 12/11/2020 [facility] 10 mg 12/11/2020 12:00:00 AM EDT tablet 30 TAKE ONE TABLET BY MOUTH THREE TIMES A DAY NEEDED MAXIMUM DAILY DOSE = 3 TAKE ONE TABLET BY MOUTH THREE TIMES A DAY NEEDED MAXIMUM DAILY DOSE = 3 SOLD: 12/11/2020 [facility] Medrol Medrol 12/11/2020 12:00:00 AM EDT active [facility] ([facility]) Baclofen 10 MG Oral Tablet Baclofen 12/11/2020 12:00:00 AM EDT ORAL active [facility] ([facility]) 15 mg 12/10/2020 12:00:00 AM EDT tablet 30 TAKE ONE TABLET BY MOUTH EVERY DAY WITH FOOD OR MILK TAKE ONE TABLET BY MOUTH EVERY DAY WITH FOOD OR MILK S OLD: 12/11/2020 [facility] 1 mg 12/04/2020 12:00:00 AM EDT tablet 120 TAKE ONE TABLET BY MOUTH FOUR TIMES A DAY NEEDED PANIC ATTACKS MAXIMUM DAILY DOSE = 4 TAKE ONE TABLET BY MOUTH FOUR TIMES A DAY NEEDED PANIC ATTACKS MAXIMUM DAILY DOSE = 4 SOLD: 12/11/2020 [facility] 1 mg 10/31/2020 12:00:00 AM EDT tablet 120 TAKE ONE TABLET BY MOUTH FOUR TIMES A DAY NEEDED FOR PANIC ATTAKS MAXIMUM DAILY DOSE = FOUR TABLETS TAKE ONE TABLET BY MOUTH FOUR TIMES A DAY NEEDED FOR PANIC ATTAKS MAXIMUM DAILY DOSE = FOUR TABLETS SOLD: 11/11/2020 [facility] 50 mcg (2,000 unit) 10/01/2020 12:00:00 AM EDT capsule 90 TAKE ONE CAPSULE BY MOUTH EVERY DAY TAKE ONE CAPSULE BY MOUTH EVERY DAY SOLD: 10/01/2020 [facility] Vitamin D (Ergocalciferol) Vitamin D (Ergocalciferol) 2020 12:00:00 AM EDT active [facility] ([facility]) 100 mg 09/18/2020 12:00:00 AM EDT capsule 60 TAKE ONE CAPSULE BY MOUTH TWICE A DAY MAXIMUM DAILY DOSE = 2 CAPSULES TAKE ONE CAPSULE BY MOUTH TWICE A DAY MAXIMUM DAILY DOSE = 2 CAPSULES SOLD: 12/03/2020 [facility] 100 mg 09/18/2020 12:00:00 AM EDT capsule 60 TAKE ONE CAPSULE BY MOUTH TWICE A DAY MAXIMUM DAILY DOSE = 2 CAPSULES TAKE ONE CAPSULE BY MOUTH TWICE A DAY MAXIMUM DAILY DOSE = 2 CAPSULES SOLD: 09/27/2020 [facility] 100 mg 09/18/2020 12:00:00 AM EDT capsule 60 TAKE ONE CAPSULE BY MOUTH TWICE A DAY MAXIMUM DAILY DOSE = 2 CAPSULES TAKE ONE CAPSULE BY MOUTH TWICE A DAY MAXIMUM DAILY DOSE = 2 CAPSULES SOLD: 01/01/2021 [facility] 100 mg 09/18/2020 12:00:00 AM EDT capsule 60 TAKE ONE CAPSULE BY MOUTH TWICE A DAY MAXIMUM DAILY DOSE = 2 CAPSULES TAKE ONE CAPSULE BY MOUTH TWICE A DAY MAXIMUM DAILY DOSE = 2 CAPSULES SOLD: 10/27/2020 [facility] 1 mg 09/05/2020 12:00:00 AM EDT tablet 120 TAKE ONE TABLET BY MOUTH FOUR TIMES A DAY NEEDED FOR PANIC ATTACKS MAXIMUM DAILY DOSE = 4 TABLETS TAKE ONE TABLET BY MOUTH FOUR TIMES A DAY NEEDED FOR PANIC ATTACKS MAXIMUM DAILY DOSE = 4 TABLETS SOLD: 09/17/2020 [facility] 15 mg 08/28/2020 12:00:00 AM EDT tablet 30 TAKE ONE TABLET BY MOUTH EVERY DAY WITH FOOD OR MILK TAKE ONE TABLET BY MOUTH EVERY DAY WITH FOOD OR MILK S OLD: 09/17/2020 [facility] 15 mg 08/28/2020 12:00:00 AM EDT tablet 30 TAKE ONE TABLET BY MOUTH EVERY DAY WITH FOOD OR MILK TAKE ONE TABLET BY MOUTH EVERY DAY WITH FOOD OR MILK S OLD: 10/27/2020 [facility] 600 mg(1,500mg) -400 unit 08/22/2020 12:00:00 AM EDT tablet 60 TAKE ONE TABLET BY MOUTH TWICE A DAY TAKE ONE TABLET BY MOUTH TWICE A DAY SOLD: 08/26/2020 [facility] Calcium Carbonate 600 MG / Cholecalciferol 400 UNT Oral Tabl et Calcium 600+D 08/18/2020 12:00:00 AM EDT ORAL active [facility] ([facility]) 1 mg 08/07/2020 12:00:00 AM EDT tablet 120 TAKE ONE TABLET BY MOUTH FOUR TIMES A DAY NEEDED FOR PANIC ATTACKS MAXIMUM DAILY DOSE = 4 TAKE ONE TABLET BY MOUTH FOUR TIMES A DAY NEEDED FOR PANIC ATTACKS MAXIMUM DAILY DOSE = 4 SOLD: 08/14/2020 [facility] 90 mcg/actuation 07/10/2020 12:00:00 AM EDT HFA aerosol inha ler 17 INHALE TWO PUFFS BY MOUTH FOUR TIMES A DAY NEEDED INHALE TWO PUFFS BY MOUTH FOUR TIMES A DAY NEEDED SOLD: 07/11/2020 [facility] 160-4.5 mcg/actuation 07/10/2020 12:00:00 AM EDT HFA aerosol inhaler 10 INHALE TWO PUFFS BY MOUTH TWICE A DAY INHALE TWO PUFFS BY MOUTH TWICE A DAY SOLD: 07/11/2020 [facility] 100 mg 06/24/2020 12:00:00 AM EST capsule 90 TAKE ONE CAPSULE BY MOUTH THREE TIMES A DAY TAKE ONE CAPSULE BY MOUTH THREE TIMES A DAY SOLD: 10/27/2020 [facility] 100 mg 06/24/2020 12:00:00 AM EST capsule 90 TAKE ONE CAPSULE BY MOUTH THREE TIMES A DAY TAKE ONE CAPSULE BY MOUTH THREE TIMES A DAY SOLD: 07/06/2020 [facility] 100 mg 06/24/2020 12:00:00 AM EST capsule 90 TAKE ONE CAPSULE BY MOUTH THREE TIMES A DAY TAKE ONE CAPSULE BY MOUTH THREE TIMES A DAY SOLD: 08/14/2020 [facility] 100 mg 06/24/2020 12:00:00 AM EST capsule 90 TAKE ONE CAPSULE BY MOUTH THREE TIMES A DAY TAKE ONE CAPSULE BY MOUTH THREE TIMES A DAY SOLD: 09/17/2020 [facility] 10 mg 06/20/2020 12:00:00 AM EST capsule 270 TAKE THREE CAPSULES BY MOUTH EVERY DAY TAKE THREE CAPSULES BY MOUTH EVERY DAY SOLD: 09/17/2020 [facility] 50 mg 06/20/2020 12:00:00 AM EST tablet 90 TAKE ONE TABLET BY MOUTH AT BEDTIME MAXIMUM DAILY DOSE = 1 TAKE ONE TABLET BY MOUTH AT BEDTIME MAXI MUM DAILY DOSE = 1 SOLD: 09/27/2020 [facility] 1 mg 06/20/2020 12:00:00 AM EST tablet 120 TAKE ONE TABLET BY MOUTH FOUR TIMES A DAY NEEDED FOR PAINC ATTACKS MAXIMUM DAILY DOSE = 4 TAKE ONE TABLET BY MOUTH FOUR TIMES A DAY NEEDED FOR PAINC ATTACKS MAXIMUM DAILY DOSE = 4 SOLD: 06/23/2020 [facility] 10 mg 06/20/2020 12:00:00 AM EST capsule 270 TAKE THREE CAPSULES BY MOUTH EVERY DAY TAKE THREE CAPSULES BY MOUTH EVERY DAY SOLD: 06/23/2020 [facility] 50 mg 06/20/2020 12:00:00 AM EST tablet 90 TAKE ONE TABLET BY MOUTH AT BEDTIME MAXIMUM DAILY DOSE = 1 TAKE ONE TABLET BY MOUTH AT BEDTIME MAXI MUM DAILY DOSE = 1 SOLD: 06/23/2020 [facility] 10 mg 06/20/2020 12:00:00 AM EST capsule 270 TAKE THREE CAPSULES BY MOUTH EVERY DAY TAKE THREE CAPSULES BY MOUTH EVERY DAY SOLD: 12/16/2020 [facility] 50 mg 06/20/2020 12:00:00 AM EST tablet 90 TAKE ONE TABLET BY MOUTH AT BEDTIME MAXIMUM DAILY DOSE = 1 TAKE ONE TABLET BY MOUTH AT BEDTIME MAXI MUM DAILY DOSE = 1 SOLD: 12/23/2020 [facility] 15 mg 06/12/2020 12:00:00 AM EST tablet 30 TAKE ONE TABLET BY MOUTH EVERY DAY WITH FOOD OR MILK TAKE ONE TABLET BY MOUTH EVERY DAY WITH FOOD OR MILK S OLD: 06/23/2020 [facility] 15 mg 06/12/2020 12:00:00 AM EST tablet 30 TAKE ONE TABLET BY MOUTH EVERY DAY WITH FOOD OR MILK TAKE ONE TABLET BY MOUTH EVERY DAY WITH FOOD OR MILK S OLD: 07/27/2020 [facility] meloxicam 15 MG Oral Tablet Meloxicam 06/04/2020 12:00:00 AM EST ORAL active [facility] ([facility]) gabapentin 100 MG Oral Capsule Gabapentin 06/04/2020 12:00:00 AM EST ORAL active [facility] ([facility]) 100 mg 05/26/2020 12:00:00 AM EST capsule 90 TAKE ONE CAPSULE BY MOUTH THREE TIMES A DAY TAKE ONE CAPSULE BY MOUTH THREE TIMES A DAY SOLD: 05/27/2020 [facility] 1 mg 05/23/2020 12:00:00 AM EST tablet 120 TAKE ONE TABLET BY MOUTH FOUR TIMES A DAY NEEDED FOR PANIC ATTACKS. MAX DAILY DOSE= FOUR TABLETS TAKE ONE TABLET BY MOUTH FOUR TIMES A DAY NEEDED FOR PANIC ATTACKS. MAX DAILY DOSE= FOUR TABLETS SOLD: 05/27/2020 [facility] 15 mg 05/21/2020 12:00:00 AM EST tablet 30 TAKE ONE TABLET BY MOUTH EVERY DAY WITH FOOD TAKE ONE TABLET BY MOUTH EVERY DAY WITH FOOD SOLD: 05/22/2020 [facility] 100 mg 04/25/2020 12:00:00 AM EST capsule 90 TAKE ONE CAPSULE BY MOUTH THREE TIMES A DAY TAKE ONE CAPSULE BY MOUTH THREE TIMES A DAY SOLD: 04/27/2020 [facility] 1 mg 04/23/2020 12:00:00 AM EST tablet 120 TAKE ONE TABLET BY MOUTH FOUR TIMES A DAY NEEDED FOR PANIC ATTACKS MAXIMUM DAILY DOSE = 4 TABLETS TAKE ONE TABLET BY MOUTH FOUR TIMES A DAY NEEDED FOR PANIC ATTACKS MAXIMUM DAILY DOSE = 4 TABLETS SOLD: 04/27/2020 [facility] 15 mg 04/21/2020 12:00:00 AM EST tablet 30 TAKE ONE TABLET BY MOUTH EVERY DAY AFTER MEALS TAKE ONE TABLET BY MOUTH EVERY DAY AFTER MEALS SOLD: [facility] 100 mg 04/15/2020 12:00:00 AM EST capsule 60 TAKE ONE CAPSULE BY MOUTH TWICE A DAY TAKE ONE CAPSULE BY MOUTH TWICE A DAY SOLD: 08/26/2020 [facility] 100 mg 04/15/2020 12:00:00 AM EST capsule 60 TAKE ONE CAPSULE BY MOUTH TWICE A DAY TAKE ONE CAPSULE BY MOUTH TWICE A DAY SOLD: 06/23/2020 [facility] 100 mg 04/15/2020 12:00:00 AM EST capsule 60 TAKE ONE CAPSULE BY MOUTH TWICE A DAY TAKE ONE CAPSULE BY MOUTH TWICE A DAY SOLD: 04/21/2020 [facility] 100 mg 04/15/2020 12:00:00 AM EST capsule 60 TAKE ONE CAPSULE BY MOUTH TWICE A DAY TAKE ONE CAPSULE BY MOUTH TWICE A DAY SOLD: 07/27/2020 [facility] 100 mg 04/15/2020 12:00:00 AM EST capsule 60 TAKE ONE CAPSULE BY MOUTH TWICE A DAY TAKE ONE CAPSULE BY MOUTH TWICE A DAY SOLD: 05/22/2020 [facility] 100 mg 04/03/2020 12:00:00 AM EST capsule 90 TAKE ONE CAPSULE BY MOUTH THREE TIMES A DAY TAKE ONE CAPSULE BY MOUTH THREE TIMES A DAY SOLD: 04/14/2020 [facility] 1 mg 03/05/2020 12:00:00 AM EST tablet 120 TAKE ONE TABLET BY MOUTH FOUR TIMES A DAY NEEDED FOR PANIC ATTACKS MAXIMUM DAILY DOSE = 4 TABLETS TAKE ONE TABLET BY MOUTH FOUR TIMES A DAY NEEDED FOR PANIC ATTACKS MAXIMUM DAILY DOSE = 4 TABLETS SOLD: 03/19/2020 [facility] 15 mg 02/14/2020 12:00:00 AM EDT tablet 30 TAKE ONE TABLET BY MOUTH EVERY DAY AFTER MEALS TAKE ONE TABLET BY MOUTH EVERY DAY AFTER MEALS SOLD: 020 [facility] 100 mg 02/13/2020 12:00:00 AM EDT capsule 90 TAKE ONE CAPSULE BY MOUTH THREE TIMES A DAY TAKE ONE CAPSULE BY MOUTH THREE TIMES A DAY SOLD: 02/15/2020 [facility] Shingrix Shingrix 02/13/2020 12:00:00 AM EDT SUBCUTANEOUS active [facility] ([facility]) 1 mg 01/24/2020 12:00:00 AM EDT tablet 120 TAKE ONE TABLET BY MOUTH FOUR TIMES A DAY NEEDED FOR PANIC ATTACKS MAXIMUM DAILY DOSE = 4 TAKE ONE TABLET BY MOUTH FOUR TIMES A DAY NEEDED FOR PANIC ATTACKS MAXIMUM DAILY DOSE = 4 SOLD: 01/29/2020 [facility] 15 mg 01/23/2020 12:00:00 AM EDT tablet 30 TAKE ONE TABLET BY MOUTH EVERY DAY WITH FOOD TAKE ONE TABLET BY MOUTH EVERY DAY WITH FOOD SOLD: 03/19/2020 [facility] 15 mg 01/23/2020 12:00:00 AM EDT tablet 30 TAKE ONE TABLET BY MOUTH EVERY DAY WITH FOOD TAKE ONE TABLET BY MOUTH EVERY DAY WITH FOOD SOLD: 01/23/2020 [facility] 100 mg 01/23/2020 12:00:00 AM EDT capsule 90 TAKE ONE CAPSULE BY MOUTH THREE TIMES A DAY TAKE ONE CAPSULE BY MOUTH THREE TIMES A DAY SOLD: 01/23/2020 [facility] . UNIT 01/22/2020 12:00:00 AM EDT Injectable 1 DIRECTED DIRECTED SOLD: 01/22/2020 [facility] gabapentin 100 MG Oral Capsule Gabapentin 01/22/2020 12:00:00 AM EDT ORAL completed [facility] ([facility] meloxicam 15 MG Oral Tablet [Mobic] Mobic 01/22/2020 12:00:00 AM EDT ORAL completed [facility] ([facility]) 3 ML Sodium Hyaluronate 10 MG/ML Prefilled Syringe [Gel-One] Gel-One 01/14/2020 12:00:00 AM EDT completed [facility] ([facility]) 50 mg 01/14/2020 12:00:00 AM EDT tablet 30 TAKE ONE TABLET BY MOUTH EVERY 4 TO 6 HOURS NEEDED FOR PAIN MAXIMUM DAILY DOSE = FOUR TABLETS TAKE ONE TABLET BY MOUTH EVERY 4 TO 6 HOURS NEEDED FOR PAIN MAXIMUM DAILY DOSE = FOUR TABLETS SOLD: 01/14/2020 [facility] tramadol hydrochloride 50 MG Oral Tablet Tramadol HCL 01/14/2020 12:00:00 AM EDT completed [facility] ([facility]) 90 mcg/actuation 01/11/2020 12:00:00 AM EDT HFA aerosol inha ler 17 INHALE TWO PUFFS BY MOUTH FOUR TIMES A DAY NEEDED INHALE TWO PUFFS BY MOUTH FOUR TIMES A DAY NEEDED SOLD: 01/11/2020 [facility] 160-4.5 mcg/actuation 01/11/2020 12:00:00 AM EDT HFA aerosol inhaler 10 INHALE TWO PUFFS BY MOUTH TWICE A DAY INHALE TWO PUFFS BY MOUTH TWICE A DAY SOLD: 01/11/2020 [facility] 1 mg 12/31/2019 12:00:00 AM EDT tablet 120 TAKE ONE TABLET BY MOUTH FOUR TIMES A DAY NEEDED FOR PANIC ATTACKS MAXIMUM DAILY DOSE = 4 TABLETS TAKE ONE TABLET BY MOUTH FOUR TIMES A DAY NEEDED FOR PANIC ATTACKS MAXIMUM DAILY DOSE = 4 TABLETS SOLD: 01/01/2020 [facility] 0.3 % 12/18/2019 12:00:00 AM EDT drops 5 INSTILL ONE DROP FOUR TIMES A DAY IN THE LEFT EYE START 3 DAYS PRIOR TO SURGERY INSTILL ONE DROP FOUR TIMES A DAY IN THE LEFT EYE START 3 DAYS PRIOR TO SURGERY SOLD: 12/18/2019 [facility] 0.5 % 12/18/2019 12:00:00 AM EDT drops 5 INSTILL 1 FOUR TIMES A DAY IN THE LEFT EYE START 3 DAYS PRIOR TO SURGERY INSTILL 1 FOUR TIMES A DAY IN THE LEFT EYE START 3 DAYS PRIOR TO SURGERY SOLD: 12/18/2019 [facility] Methylprednisolone 4 MG Oral Tablet [Medrol] Medrol 12:00:00 AM EDT completed [facility] ([facility]) 1 % 12/13/2019 12:00:00 AM EDT gel 100 APPLY DIRECTED ON RIGHT LEG / HIP TWO TIMES A DAY APPLY DIRECTED ON RIGHT LEG / HIP TWO TIMES A DAY S OLD: 12/13/2019 [facility] 500 mg 12/13/2019 12:00:00 AM EDT tablet 60 TAKE ONE TABLET BY MOUTH TWICE A DAY WITH FOOD TAKE ONE TABLET BY MOUTH TWICE A DAY WITH FOOD SOLD: [facility] Cyclobenzaprine hydrochloride 10 MG Oral Tablet CYCLOBENZAPR INE HCL 12/13/2019 12:00:00 AM EDT tablet 14 TAKE ONE TABLET BY MOUTH AT BEDTIME TAKE ONE TABLET BY MOUTH AT BEDTIME SOLD: 12/13/2019 [facility] 500 mg 12/13/2019 12:00:00 AM EDT tablet 60 TAKE ONE TABLET BY MOUTH TWICE A DAY WITH FOOD TAKE ONE TABLET BY MOUTH TWICE A DAY WITH FOOD SOLD: [facility] 20 mg 12/13/2019 12:00:00 AM EDT tablet 10 TAKE ONE TABLET BY MOUTH TWICE A DAY FOR 5 DAYS TAKE ONE TABLET BY MOUTH TWICE A DAY FOR 5 DAYS SOLD: 2019 [facility] 100 mg 10/02/2019 12:00:00 AM EDT capsule 60 TAKE ONE CAPSULE BY MOUTH TWICE A DAY TAKE ONE CAPSULE BY MOUTH TWICE A DAY SOLD: 01/11/2020 [facility] 100 mg 10/02/2019 12:00:00 AM EDT capsule 60 TAKE ONE CAPSULE BY MOUTH TWICE A DAY TAKE ONE CAPSULE BY MOUTH TWICE A DAY SOLD: 03/19/2020 [facility] 100 mg 10/02/2019 12:00:00 AM EDT capsule 60 TAKE ONE CAPSULE BY MOUTH TWICE A DAY TAKE ONE CAPSULE BY MOUTH TWICE A DAY SOLD: 02/12/2020 [facility] 50 mg 07/10/2019 12:00:00 AM EDT tablet 90 TAKE ONE TABLET BY MOUTH AT BEDTIME TAKE ONE TABLET BY MOUTH AT BEDTIME SOLD: 04/14/2020 [facility] 50 mg 07/10/2019 12:00:00 AM EDT tablet 90 TAKE ONE TABLET BY MOUTH AT BEDTIME TAKE ONE TABLET BY MOUTH AT BEDTIME SOLD: 01/14/2020 [facility] 10 mg 06/28/2019 12:00:00 AM EDT capsule 270 TAKE THREE CAPSULES BY MOUTH EVERY DAY TAKE THREE CAPSULES BY MOUTH EVERY DAY SOLD: 01/01/2020 [facility] 10 mg 06/28/2019 12:00:00 AM EDT capsule 270 TAKE THREE CAPSULES BY MOUTH EVERY DAY TAKE THREE CAPSULES BY MOUTH EVERY DAY SOLD: 04/02/2020 [facility] Insurance Providers Payer name Policy type / Coverage type Policy ID Covered democrat ID Covered democrat's relationship to yañez Policy Yañez Plan Information [facility] [id number] SP [id number] [employer] Claims () Workers Compensation [id number] Self r Commercial [id number] Self [id number] [facility] [id number] SP [id number] r Commercial [id number] Self [id number] [facility] Maintenance Organization (O) [id number] Self Y [id number] [facility] Organization (O) [id number] Self Y [id number] r Medigap Part B [id number] Self [id number] [facility] [id number] S elf [id number] [facility] [id number] SP [id number] UMR O [id number] S [id number] [facility] Part B [id number] Self [id number] R [facility] [id number] [employer] [id number] S elf [id number] [employer] [id number] S elf [id number] [employer] [id number] S elf [id number] [employer] [id number] Self [id number] [employer] [id number] S elf [id number] [employer] [id number] Self [id number] [employer] [id number] S elf [id number] [employer] [id number] S elf [id number] [employer] [id number] Self [id number] [employer] [id number] S elf [id number] [employer] [id number] S elf [id number] [employer] PPO O [id number] S [id number] [employer] [id number] S elf [id number] [employer] [id number] S elf [id number] [employer] [id number] S elf [employer] MRI Brain No Auth Requird 187 Self MRI Brain No Auth Requird [employer] [id number] SP [id number] [employer] CLAIM ADMIN WORK O [id number] S [id number] [employer] CLAIM ADMIN WORK COMP [id number] SP [id number] [employer] CLAIM ADMIN WORK COMP [id number] SP [id number] MEDFOCUS P [id number] S [id number] MEDICARE [id number] SP [id number] UMR O [id number] O [id number] MEDICARE C [id number] S [id number] MEDICARE PART A -O/P [id number] Problems, Conditions, and Diagnoses Code Display Name Description Problem Type Effective Dates Data Source(s) H268 Other specified cataract Other specified cataract Diag nosis 01/02/2020 09:30:00 AM EDT [facility] J45.30 Mild persistent asthma Mild persistent asthma Problem 07/10/2020 12:00:00 AM EDT [facility] ([facility]) Surgeries/Procedures Procedure Description Date Indications Data Source(s) Spirometry 01/29/2021 12:00:00 AM EDT [facility] ([facility]) OFFICE OUTPATIENT VISIT 15 MINUTES 01/29/2021 12:00:00 AM EDT [facility]) PHYSICIAN TELEPHONE EVALUATION 5-10 MIN 12/25/2020 12: 00:00 AM EDT [facility] ([facility]) OFFICE OUTPATIENT VISIT 15 MINUTES 12/25/2020 12:00:00 AM EDT [facility] ([facility] ) OFFICE OUTPATIENT VISIT 25 MINUTES 12/11/2020 12:00:00 AM EDT [facility] ([facility] ) Mammography (procedure) 08/18/2020 12:00:00 AM EDT [facility] ([facility]) PHYSICIAN TELEPHONE EVALUATION 5-10 MIN 07/10/2020 12: 00:00 AM EDT [facility] ([facility] ) Needle electromyography, each extremity, with related paraspinal areas, when performed, done with nerve conduction, amplitude and latency/velocity study; complete, five or more muscles studied, innervated by three or more nerves or four or more spinal levels (list separately in addition to the code for primary procedure). 03/19/2020 12:00:00 AM EST MEDEN T ([facility] ) [id number] Nerve conduction studies 5-6 studies NEW 201203/19/2020 12:00:00 AM EST [facility] ([facility] ) RADEX SPINE LUMBOSACRAL 2/3 VIEWS 01/22/2020 12:00:00 AM EDT [facility] ([facility] ) ARTHROCENTESIS ASPIR&/INJECTION MAJOR JT/BURSA 12:00:00 AM EDT [facility] ([facility] ) ARTHROCENTESIS ASPIR&/INJECTION MAJOR JT/BURSA 12:00:00 AM EDT [facility] ([facility] ) Results ID Date Data Source [id number] 01/29/2021 02:39:00 PM EDT [facility] ([facility] ) Name Value Range Interpretation Code Description Data Sena rce(s) Supporting Document(s) PDFReport Laboratory test result MED[facility] ([facility], ) FVC-Pre 1.69 L [facility] ([facility]) FVC-Pred 2.77 L [facility] ([facility]) FVC-%Pred-Pre 60 L [facility] ([facility]) FVC-LLN 2.14 L [facility] ([facility]) Fev1-%Pred-Pre 68 L MED[facility] ([facility], ) Fev1-Pred 2.11 L [facility] ([facility]) Fev1-Pre 1.45 L [facility] ([facility]) Fev6-Pre 1.69 L [facility] ([facility]) Fev6-Pred 2.65 L [facility] ([facility]) Fev1-LLN 1.58 L [facility] ([facility]) Fev6-LLN 2.04 L MEDENT ([facility]) Fev6-%Pred-Pre 63 L MEDENT ([facility]) Zlq3vtd-Dgxx 77 % MEDENT ([facility]) Smw8eqg-Rud 86 % MEDENT ([facility]) Lwx6hyw-%Pred-Pre 111 % MEDENT ([facility]) Fhb4ikk-GIH 67 % MEDENT ([facility]) Vfw2tkg-%Pred-Pre 104 % MEDENT ([facility]) Pqx0uxb-Wmqo 96 % MEDENT ([facility]) Wcg4tmf-Asg 100 % MEDENT ([facility]) FEFMax-Pre 5.23 L/E/sec MEDENT ([facility]) FEFMax-%Pred-Pre 95 L/E/sec MEDENT ([facility]) FEFMax-Pred 5.48 L/E/sec MEDENT ([facility]) [id number] 1.92 L/E/sec MEDENT ([facility]) FEFMax-LLN 3.92 L/E/sec MEDENT ([facility]) [id number]-Lau 1.95 L/E/sec MEDENT ([facility]) Vuo9069-%Pred-Pre 101 L/E/sec MEDENT ([facility]) [id number]-WTR 0.79 L/E/sec MEDENT ([facility]) ExpTime-Pre 6.02 sec MEDENT ([facility]) Vgg7zoi7-Lli 86 % MEDENT ([facility], ) Ncy8qmi1-Ezrm 80 % MEDENT ([facility], ) Jik7jyo1-BRY 71 % MEDENT ([facility], ) Jae2hcy4-%Pred-Pre 107 % MEDENT ([facility]) ID Date Data Source [id number] 12/26/2020 08:58:00 AM EDT MEDENT ([facility], ) Name Value Range Interpretation Code Description Data Sena rce(s) Supporting Document(s) Phenytoin [Mass/volume] in Serum or Plasma 9.3 UG/ML 10.0-20.0 MEDENT ([facility], ) ID Date Data Source [id number] 12/26/2020 08:58:00 AM EDT MEDENT ([facility]) Name Value Range Interpretation Code Description Data Sena rce(s) Supporting Document(s) Phenytoin [Mass/volume] in Serum or Plasma 9.3 UG/ML 10.0-20.0 Below low normal MEDENT ([facility]) ID Date Data Source [id number] 12/11/2020 03:27:00 PM EDT MEDENT ([facility] ) Name Value Range Interpretation Code Description Data Sena rce(s) Supporting Document(s) Creatinine For GFR 0.60 mg/dL 0.55-1.30 MEDENT ([facility] ) Glomerular Filtration Rate Laboratory test result MEDENT ([facility]) <content>Units are mL/min/1.73 m2</content>
<content></content>
<content>Chronic Kidney Disease Staging per NKF:</content>
<content></content>
<content>Stage I & II GFR >=60 Normal to Mildly Decreased</content>
<content>Stage III GFR 30- 59 Moderately Decreased</content>
<content>Stage IV GFR 15-29 Severely Decreased</content>
<content>Stage V GFR <15 Very Little GFR Left</content>
<content>ESRD GFR <15 on ARCHIVIST</content>
<content></content> ID Date Data Source [id number] 12/11/2020 03:27:00 PM EDT MEDENT ([facility]) Name Value Range Interpretation Code Description Data Sena rce(s) Supporting Document(s) Urea nitrogen [Mass/volume] in Serum or Plasma 14 mg/dL 7-18 MEDENT ([facility]) ID Date Data Source [id number] 12/11/2020 03:27:00 PM EDT MEDENT ([facility]) Name Value Range Interpretation Code Description Data Sena rce(s) Supporting Document(s) Creatinine For GFR 0.60 mg/dL 0.55-1.30 Normal (applies to non -numeric results) [facility] ([facility]) Glomerular Filtration Rate Laboratory test result Normal (applies to non- numeric results) [facility] ([facility]) <content>Units are mL/min/1.73 m2</content>
<content></content>
<content>Chronic Kidney Disease Staging per NKF:</content>
<content></content>
<content>Stage I & II GFR >=60 Normal to Mildly Decreased</content>
<content>Stage III GFR 30- 59 Moderately Decreased</content>
<content>Stage IV GFR 15-29 Severely Decreased</content>
<content>Stage V GFR <15 Very Little GFR Left</content>
<content>ESRD GFR <15 on ARCHIVIST</content>
<content></content> ID Date Data Source [id number] 12/11/2020 03:27:00 PM EDT [facility]) Name Value Range Interpretation Code Description Data Sena rce(s) Supporting Document(s) Urea nitrogen [Mass/volume] in Serum or Plasma 14 mg/dL 7 -18 Normal (applies to non-numeric results) [facility] ([facility]) ID Date Data Source [id number] 07/14/2020 09:37:00 AM EDT MEDENT ([facility]) Name Value Range Interpretation Code Description Data Sena rce(s) Supporting Document(s) Phenytoin [Mass/volume] in Serum or Plasma 10.3 UG/ML 10.0-20.0 MEDENT ([facility]) ID Date Data Source [id number] 07/14/2020 09:37:00 AM EDT MEDENT ([facility]) Name Value Range Interpretation Code Description Data Sena rce(s) Supporting Document(s) Blood Urea Nitrogen 17 mg/dL 7-18 MEDENT ([facility]) Glucose, Fasting 79 mg/dL 70-100 MEDENT ([facility]) Glomerular Filtration Rate Laboratory test result MEDENT ([facility]) <content>Units are mL/min/1.73 m2</content>
<content></content>
<content>Chronic Kidney Disease Staging per NKF:</content>
<content></content>
<content>Stage I & II GFR >=60 Normal to Mildly Decreased</content>
<content>Stage III GFR 30- 59 Moderately Decreased</content>
<content>Stage IV GFR 15-29 Severely Decreased</content>
<content>Stage V GFR <15 Very Little GFR Left</content>
<content>ESRD GFR <15 on ARCHIVIST</content>
<content></content> Creatinine For GFR 0.61 mg/dL 0.55-1.30 MEDENT ([facility]) Potassium Serum 4.5 meq/L 3.5-5.1 MEDENT ([facility]) Chloride Level 107 meq/L 98-107 MEDENT ([facility]) Sodium Level 140 meq/L 136-145 MEDENT ([facility]) Carbon Dioxide Level 28 meq/L 21-32 MEDENT ([facility]) Anion Gap 5 meq/L 8-16 MEDENT ([facility]) Calcium Level 8.1 mg/dL 8.8-10.2 MEDENT ([facility]) Ast/Sgot 18 U/L 7-37 MEDENT ([facility]) Alkaline Phosphatase 145 U/L 45-117 MEDENT ([facility]) Alt/SGPT 18 U/L 12-78 MEDENT ([facility]) Total Protein 6.6 GM/DL 6.4-8.2 MEDENT ([facility], ) Bilirubin,Total 0.1 mg/dL 0.2-1.0 MEDENT ([facility]) Albumin/Globulin Ratio 0.8 1.2-2.2 MEDENT ([facility]) Albumin 3.0 GM/DL 3.2-5.2 MEDENT ([facility], ) ID Date Data Source [id number] 07/14/2020 09:37:00 AM EDT MEDENT ([facility]) Name Value Range Interpretation Code Description Data Sena rce(s) Supporting Document(s) White Blood Count 7.1 10 4.0-10.0 MEDENT ([facility], ) Red Blood Count 4.15 10 4.00-5.40 [facility] Hemoglobin 12.2 g/dL 12.0-15.5 MEDENT ([facility], ) Mean Corpuscular Volume 94.0 fl 80.0-96.0 M EDENT [facility] Hematocrit 39.0 % 36.0-47.0 MEDENT [facility] Mean Corpuscular Hemoglobin 29.4 pg 27.0-33.0 MEDENT [facility] Mean Corpuscular HGB Conc 31.3 g/dL 32.0-36.5 MEDENT [facility] Red Cell Distribution Width 14.6 % 11.5-14.5 MEDENT [facility] Platelet Count, Automated 209 10 150-450 MEDENT ([facility], ) Lymph % 32.2 % 24.0-44.0 MEDENT ([facility], ) Elk % 9.1 % 2.0-8.0 MEDENT ([facility], ) Neutrophils % 53.5 % 36.0-66.0 MEDENT ([facility], ) Eos % 4.2 % 0.0-3.0 MEDENT ([facility], ) Baso % 0.7 % 0.0-1.0 MEDENT ([facility], ) Nucleated Red Blood Cell % 0.0 % 0-0 MED ENT ([facility], ) Immature Granulocyte % 0.3 % 0-3.0 MEDENT ([facility], ) Lymph # 2.3 10 1.5-5.0 MEDENT ([facility], ) Neutrophils # 3.8 10 1.5-8.5 MEDENT ([facility], ) Elk # 0.7 10 0.0-0.8 MEDENT ([facility], ) Baso # 0.1 10 0.0-0.2 MEDENT ([facility], ) Eos # 0.3 10 0.0-0.5 MEDENT ([facility], ) ID Date Data Source [id number] 07/14/2020 09:37:00 AM EDT [facility] ([facility]) Name Value Range Interpretation Code Description Data Sena rce(s) Supporting Document(s) Phenytoin [Mass/volume] in Serum or Plasma 10.3 UG/ML 10.0- 20.0 Normal (applies to non-numeric results) [facility] ([facility]) ID Date Data Source [id number] 07/14/2020 09:37:00 AM EDT [facility] ([facility]) Name Value Range Interpretation Code Description Data Sena rce(s) Supporting Document(s) Blood Urea Nitrogen 17 mg/dL 7-18 Normal (applies to non-nume migel results) [facility] ([facility]) Glucose, Fasting 79 mg/dL 70-100 Normal (applies to non-numeric results) [facility] ([facility]) Creatinine For GFR 0.61 mg/dL 0.55-1.30 Normal (applies to non -numeric results) [facility] ([facility]) Sodium Level 140 meq/L 136-145 Normal (applies to non-numeric res ults) [facility] ([facility]) Glomerular Filtration Rate Laboratory test result Normal (applies to non- numeric results) [facility] ([facility]) <content>Units are mL/min/1.73 m2</content>
<content></content>
<content>Chronic Kidney Disease Staging per NKF:</content>
<content></content>
<content>Stage I & II GFR >=60 Normal to Mildly Decreased</content>
<content>Stage III GFR 30- 59 Moderately Decreased</content>
<content>Stage IV GFR 15-29 Severely Decreased</content>
<content>Stage V GFR <15 Very Little GFR Left</content>
<content>ESRD GFR <15 on ARCHIVIST</content>
<content></content> Chloride Level 107 meq/L 98-107 Normal (applies to non-numeric r esults) MEDENT ([facility]) Potassium Serum 4.5 meq/L 3.5-5.1 Normal (applies to non-numeric results) MEDENT ([facility]) Anion Gap 5 meq/L 8-16 Below low normal MEDENT ( [facility]) Carbon Dioxide Level 28 meq/L 21-32 Normal (applies to non-num asia results) MEDENT ([facility]) Calcium Level 8.1 mg/dL 8.8-10.2 Below low normal MEDEN T ([facility]) Alt/SGPT 18 U/L 12-78 Normal (applies to non-numeric resul ts) MEDENT ([facility]) Ast/Sgot 18 U/L 7-37 Normal (applies to non-numeric resul ts) MEDENT ([facility]) Bilirubin,Total 0.1 mg/dL 0.2-1.0 Below low normal MED ENT ([facility]) Alkaline Phosphatase 145 U/L 45-117 Above high normal MEDENT ([facility]) Albumin 3.0 GM/DL 3.2-5.2 Below low normal MEDENT ( [facility]) Albumin/Globulin Ratio 0.8 1.2-2.2 Below low normal MEDENT ([facility]) Total Protein 6.6 GM/DL 6.4-8.2 Normal (applies to non-numeric re sults) MEDENT ([facility]) ID Date Data Source [id number] 07/14/2020 09:37:00 AM EDT MEDENT ([facility]) Name Value Range Interpretation Code Description Data Sena rce(s) Supporting Document(s) White Blood Count 7.1 10 4.0-10.0 Normal (applies to non-numeri c results) MEDENT ([facility]) Hemoglobin 12.2 g/dL 12.0-15.5 Normal (applies to non-numeric resul ts) MEDENT ([facility]) Red Blood Count 4.15 10 4.00-5.40 Normal (applies to non-numeric results) MEDENT ([facility]) Hematocrit 39.0 % 36.0-47.0 Normal (applies to non-numeric resul ts) MEDENT ([facility]) Mean Corpuscular Volume 94.0 fl 80.0-96.0 Normal ( applies to non-numeric results) MEDENT ([facility]) Mean Corpuscular Hemoglobin 29.4 pg 27.0-33.0 Norm al (applies to non-numeric results) MEDENT ([facility]) Mean Corpuscular HGB Conc 31.3 g/dL 32.0-36.5 Below low normal MEDENT ([facility]) Red Cell Distribution Width 14.6 % 11.5-14.5 Above high normal MEDENT ([facility]) Neutrophils % 53.5 % 36.0-66.0 Normal (applies to non-numeric re sults) MEDENT ([facility]) Platelet Count, Automated 209 10 150-450 Normal (applies to non-numeric results) MEDENT ([facility]) Elk % 9.1 % 2.0-8.0 Above high normal MEDENT ([facility]) Lymph % 32.2 % 24.0-44.0 Normal (applies to non-numeric resul ts) MEDENT ([facility]) Baso % 0.7 % 0.0-1.0 Normal (applies to non-numeric resul ts) MEDENT ([facility]) Immature Granulocyte % 0.3 % 0-3.0 Normal (applies to non-n umeric results) MEDENT ([facility]) Eos % 4.2 % 0.0-3.0 Above high normal MEDENT ([facility]) Neutrophils # 3.8 10 1.5-8.5 Normal (applies to non-numeric re sults) MEDENT ([facility]) Nucleated Red Blood Cell % 0.0 % 0-0 Normal (applies to n on-numeric results) MEDENT ([facility]) Elk # 0.7 10 0.0-0.8 Normal (applies to non-numeric resul ts) MEDENT ([facility]) Lymph # 2.3 10 1.5-5.0 Normal (applies to non-numeric resul ts) MEDENT ([facility]) Eos # 0.3 10 0.0-0.5 Normal (applies to non-numeric resul ts) MEDENT ([facility]) Baso # 0.1 10 0.0-0.2 Normal (applies to non-numeric resul ts) MEDENT ([facility]) ID Date Data Source [id number] 07/10/2020 11:19:00 AM EDT MEDENT ([facility], ) Name Value Range Interpretation Code Description Data Sena rce(s) Supporting Document(s) PDFReport Laboratory test result MEDENT ([facility]) FVC-Pre 1.71 L MEDENT ([facility]) FVC-%Pred-Pre 61 L MEDENT ([facility]) FVC-Pred 2.80 L MEDENT ([facility]) FVC-LLN 2.17 L MEDENT ([facility]) Fev1-%Pred-Pre 69 L MEDENT ([facility]) Fev1-Pred 2.14 L MEDENT ([facility]) Fev1-Pre 1.49 L MEDENT ([facility]) Fev6-Pre 1.71 L MEDENT ([facility]) Fev6-Pred 2.69 L MEDENT ([facility]) Fev1-LLN 1.61 L MEDENT ([facility]) Fev6-%Pred-Pre 63 L MEDENT ([facility]) Fev6-LLN 2.07 L MEDENT ([facility]) Uib4vhq-Wvwv 77 % MEDENT ([facility]) Wuu0hqs-%Pred-Pre 113 % MEDENT ([facility]) Xcy3bsy-Mrx 87 % MEDENT ([facility]) Zmw9npn-Qyvw 96 % MEDENT ([facility]) Dka8zoh-Wqo 100 % MEDENT ([facility]) Gxx4ctz-VVF 67 % MEDENT ([facility]) Oyb3atg-%Pred-Pre 104 % MEDENT ([facility]) FEFMax-Pred 5.55 L/E/sec MEDENT ([facility]) FEFMax-Pre 5.28 L/E/sec MEDENT ([facility]) Pbh1288-Reuz 1.96 L/E/sec MEDENT ([facility]) FEFMax-LLN 3.99 L/E/sec MEDENT ([facility]) FEFMax-%Pred-Pre 95 L/E/sec MEDENT ([facility]) Gae6031-Ydl 2.02 L/E/sec MEDENT ([facility]) Erw6300-%Pred-Pre 102 L/E/sec MEDENT ([facility]) Fav7rez6-Lhgc 80 % MEDENT ([facility]) Ujt8587-EQH 0.83 L/E/sec MEDENT ([facility]) ExpTime-Pre 7.54 sec MEDENT ([facility]) Qqr2bke9-%Pred-Pre 109 % MEDENT ([facility]) Uac8kgb2-XAE 71 % MEDENT ([facility]) Bwt3flk8-Gei 87 % MEDENT ([facility]) ID Date Data Source [id number] 01/29/2020 12:00:00 AM EDT [facility] ology Imaging Qian CASTANEDA Patient Name: ABEL [id number] [facility] Date of : 1955WILLIAM [place] [address] Date of Exam: 01/29/2020#: Fax: [phone] EXAM: CT LOWER EXTREMITY W/O CONTRASTCLINICAL INFORMATION: Atraumatic pain.Low dose 64 slice helical scanning through the right knee was obtainedusing 1 mm increments and reconstructed in both coronal and sagittalplanes. 3D reconstructions were also obtained. Post processing wasperformed at the physician's workstation.There is tricompartmental marginal osteophytosis. There is medialcompartmental narrowing which is gduy-lc-dpzyhich and patellofemoral jointspace narrowing which is giyvumzk-mp-asccmy. Calcifications are seen inboth medial and lateral compartments. There is subchondral sclerosis andsubchondral cyst formation seen involving the anterior medial tibialplateau and mid and posterior components of the lateral femoral condyle.There is no evidence of an acute fracture. There is a small jointeffusion. There is no evidence of a gross Bhatt's cyst. CT cannotaccurately evaluate the menisci and ligamentous structures.IMPRESSION:Degenerative changes as described above.Accredited by the [employer] in [place].LOUIS Esteves/Radha you for referring BEN MCKOY to our office. Electronically Signed - ROSCOE CHAVEZ DO 01/30/20 16:08 Name Value Range Interpretation Code Description Data Sena rce(s) Supporting Document(s) ID Date Data Source [id number] 01/29/2020 12:00:00 AM EDT [facility] Imaging Qian CASTANEDA Patient Name: ABEL [id number] [facility] Date of : 1955WILLIAM [place] [address] Date of Exam: 01/29/2020#: Fax: [phone] EXAM: CT LUMBAR SPINE WITHOUT CONTRASTPROCEDURE INFORMATION:Exam: CT Lumbar Spine Without ContrastExam date and time: 01/29/2020 1:37 PM Age: 64 years oldClinical indication: Low back painTECHNIQUE: Imaging protocol: Computed tomography images of the lumbar spinewithout contrast. Radiation optimization: All CT scans at this facility useat least one of these dose optimization techniques: automated exposurecontrol; mA and/or kV adjustment per patient size (includes targeted examswhere dose is matched to clinical indication); or iterative reconstruction.COMPARISON: No relevant prior studies available.FINDINGS:Vertebrae: A chronic left L5 pars defect is present. Severe facetarthropathy is noted in the lower lumbar spine. This is causing 7 mm ofanterolisthesis of L4 on L5. No acute fracture is identified.L1-L2: There is mild diffuse circumferential disc bulging. Small area ofnitrogen gas is noted along the posterior left aspect of the L2 vertebralbody, approximately 10 mm below the level of the disc. This could representnitrogen gas in a caudally migrating disc fragment. There is minimal spinalcanal stenosis and moderate bilateral neural foraminal narrowing.L2-L3: There is mild diffuse circumferential disc bulging and facetarthropathy. This is causing minimal spinal canal stenosis and mild rightneural foraminal narrowing.L3-L4: There is mild diffuse circumferential disc bulging and facetarthropathy. There is no significant spinal canal stenosis or neuralforaminal narrowing.L4-L5: There is mild diffuse circumferential disc bulging and severe facetarthropathy. There is no spinal canal stenosis. Mild bilateral neuralforaminal narrowing is present.L5-S1: There is severe disc space narrowing, vacuum disc phenomenon,moderate diffuse circumferential disc bulging, circumferential osteophyticridging, and severe facet arthropathy. This is causing moderate right andsevere left neural foraminal narrowing. There is no spinal canal stenosis.Stomach and bowel: Colonic diverticulosis is present. There is a moderateamount of stool within the colon.Soft tissues: Unremarkable.IMPRESSION:1. No acute abnormality.2. Chronic findings as discussed above.Thank you for allowing us to participate in the care of your patient.Dictated and Authenticated by: Toni Shi MD 01/29/2020 4:06 PMEastern Time ([place] & [place])VradV/evacThank you for referring BEN MCKOY to our office. Electronically Signed - [facility] 01/29/20 16:57 Name Value Range Interpretation Code Description Data Sena rce(s) Supporting Document(s) ID Date Data Source [id number] 01/10/2020 10:07:00 AM EDT MEDENT ([facility], ) Name Value Range Interpretation Code Description Data Sena rce(s) Supporting Document(s) PDFReport Laboratory test result MEDENT ([facility], ) FVC-Pre 1.93 L MEDENT ([facility], ) FVC-Pred 2.80 L MEDENT ([facility]) FVC-%Pred-Pre 68 L MEDENT ([facility], ) Fev1-%Pred-Pre 81 L MEDENT ([facility]) FVC-LLN 2.17 L MEDENT ([facility]) Fev1-Pre 1.73 L MEDENT ([facility]) Fev1-Pred 2.14 L MEDENT ([facility]) Fev6-%Pred-Pre 71 L MEDENT ([facility], ) Fev6-Pre 1.93 L MEDENT ([facility], ) Fev6-Pred 2.69 L MEDENT ([facility]) Fev1-LLN 1.61 L MEDENT ([facility]) Vme5zeh-Yctn 77 % MEDENT ([facility]) Fev6-LLN 2.07 L MEDENT ([facility]) Piq5moh-Cgx 90 % MEDENT ([facility]) Vmy9eif-%Pred-Pre 116 % MEDENT ([facility]) Pqr1pow-Mnb 100 % MEDENT ([facility]) Tph1rbn-Lksl 96 % MEDENT ([facility]) Fbj3bmt-CHL 67 % MEDENT ([facility]) Agd9epx-%Pred-Pre 104 % MEDENT ([facility]) FEFMax-Pre 5.59 L/E/sec MEDENT ([facility]) FEFMax-Pred 5.55 L/E/sec MEDENT ([facility]) FEFMax-%Pred-Pre 100 L/E/sec MEDENT ([facility]) Efm5951-Hlq 2.81 L/E/sec MEDENT ([facility]) FEFMax-LLN 3.99 L/E/sec MEDENT ([facility]) Eya5915-Yryd 1.96 L/E/sec MEDENT ([facility]) Slv7226-%Pred-Pre 143 L/E/sec MEDENT ([facility]) ExpTime-Pre 6.33 sec MEDENT ([facility]) Eqk0230-TUW 0.83 L/E/sec MEDENT ([facility]) Nhu3vtj4-Woad 80 % MEDENT ([facility]) Ukd2lcz5-AZC 71 % MEDENT ([facility]) Ald4qcf8-Ooh 90 % MEDENT ([facility]) Hmh2pdt4-%Pred-Pre 112 % MEDENT ([facility], ) ID Date Data Source [id number] 01/07/2020 11:37:00 [place] [address] OPERATIVE SUMMARYNAME: LEELEE CONTRERAS DATE OF : 1955TTENDING PHYS: Ann Espinoza MD DATE: 01/02/20 MR#: [id number] OF PROCEDURE: 01/02/2020PREOPERATIVE DIAGNOSIS: Cataract, right eye.POSTOPERATIVE DIAGNOSIS: Cataract, right eyePROCEDURE: Phacoemulsification with intraocular lens implantationusing AUOOTO 22diopters.SURGEON: Ann Espinoza MDASSISTANT: None.COMPLICATIONS: None.INDICATION: Decreased vision interfering with daily activities.DETAILS OF PROCEDURE: The patient was brought into the operating room and laid in thesupine position. The eye was prepped and draped in a sterile fashion for ophthalmic surgery,following which a lid speculum was placed. A side port incision was made and EndoCoat wasinjected into the anterior chamber. A clear corneal incision was made with a 2.4 mm Keratome,followed by capsulorhexis. Higher dissection was then done using a balanced salt solution and thenucleus rotated within the capsular bag. Phacoemulsification was then done in a vhtaio-hmo-juonaro method within the capsular bag. Excess cortical material was then aspirated usingirrigation and aspiration cannula. Visco was then placed into the capsular bag and intraocular lenspower 22, Model AUOOTO was then inserted into the capsular bag. Excess Viscoelastic was thenaspirated, followed by hydration of the corneal wounds. No leaks were noted. Intracameralantibiotics and subtenon steroid injections were then given. The patient was returned to therecovery room after the lid speculum was removed and postop instructions were given out in detail. [address] [place] [address] OPERATIVE SUMMARYNAME: LEELEE CONTRERAS DATE OF : 1955TTENDING PHYS: Ann Espinoza MD DATE: 01/02/20 MR#: [id number]: Ann Espinoza MD 01/07/20 11:14DT: PALLAVI 01/07/20 11:35DS: Ann Espinoza MD 01/09/20 15:55 2 Name Value Range Interpretation Code Description Data Sena rce(s) Supporting Document(s) ID Date Data Source [id number] 01/04/2020 01:38:00 [place] [address] OPERATIVE SUMMARYNAME: LEELEE CONTRERAS DATE OF : 1955TTENDING PHYS: Ann Espinoza MD DATE: 12/26/19 MR#: [id number] OF PROCEDURE: 12/26/2019PREOPERATIVE DIAGNOSIS: Cataract, left eye.POSTOPERATIVE DIAGNOSIS: Cataract, left eyePROCEDURE: Phacoemulsification with intraocular lens implantation, AUOOTO 25 diopters.SURGEON: Ann Espinoza MDASSISTANT: None.COMPLICATIONS: None.INDICATION: Decreased vision interfering with daily activities.DETAILS OF PROCEDURE: The patient was brought into the operating room and laid in thesupine position. The eye was prepped and draped in a sterile fashion for ophthalmic surgery,following which a lid speculum was placed. A side port incision was made and EndoCoat wasinjected into the anterior chamber. A clear corneal incision was made with a 2.4 mm Keratome,followed by capsulorhexis. Higher dissection was then done using a balanced salt solution and thenucleus rotated within the capsular bag. Phacoemulsification was then done in a [id number] method within the capsular bag. Excess cortical material was then aspirated usingirrigation and aspiration cannula. Visco was then placed into the capsular bag and intraocular lenspower 25, Model AUOOTO was then inserted into the capsular bag. Excess Viscoelastic was thenaspirated, followed by hydration of the corneal wounds. No leaks were noted. Intracameralantibiotics and subtenon steroid injections were then given. The patient was returned to therecovery room after the lid speculum was removed and postop instructions were given out in detail.DD: Ann Espinoza MD 01/04/20 13:05DT: PALLAVI 01/04/20 13:37DS: Ann Espinoza MD 01/09/20 15:55 [address] [place] [address] OPE RATIVE SUMMARYNAME: LEELEE CONTRERAS DATE OF : 1955TTENDING PHYS: Ann Espinoza MD DATE: 12/26/19 MR#: [id number] 2 Name Value Range Interpretation Code Description Data Sena rce(s) Supporting Document(s) ID Date Data Source [id number] 12/28/2019 06:59:00 AM EDT [facility] Name Value Range Interpretation Code Description Data Sena rce(s) Supporting Document(s) SARS-CoV-2 (COVID19) [facility] This lab was ordered by [facility] and reported by [facility]. ID Date Data Source [id number] 12/21/2019 07:00:00 AM EDT [facility] Name Value Range Interpretation Code Description Data Sena rce(s) Supporting Document(s) SARS-CoV-2 (COVID19) [facility] This lab was ordered by [facility] and reported by [facility]. ID Date Data Source [id number] 12/20/2019 12:00:00 AM EDT [facility] ology Imaging Qian CASTANEDA Patient Name: BEN MCKOY [id number] [facility] Date of : 1955[place] [address] Date of Exam: 12/20/2019PH#: Fax: [phone] EXAM: CT LOWER EXTREMITY W/O CONTRASTCLINICAL INFORMATION: Primary osteoarthritis.The joint space is mildly narrowed superiorly suggestive of mild articularcartilage atrophy. There is no osteophytic growth. No cortical eburnation.There is no fracture or dislocation.There is a calcification extending transversely across the acetabular roofof uncertain significance. This could be an old post traumatic change, boneisland, or a blastic metastasis. MRI followup might be considered forfurther evaluation.IMPRESSION:Mild joint space narrowing, possibly early osteoarthritic change.Calcification in the acetabular roof as described. Consider followup MRIfor further evaluation.Accredited by the [employer] in [place].Kingsley Javier, MDDJRusty/slmTcarlitos you for referring BEN MCKOY to our office. Electronically Signed - KINGSLEY JAVIER MD 12/21/19 7:57 Name Value Range Interpretation Code Description Data Sena rce(s) Supporting Document(s) Procedure Social History Code Duration Value Status Description Data Source(s ) Smoking 01/29/2021 12:00:00 AM EDT Patient has never smoked co mpleted Patient has never smoked [facility] ([facility]) Smoking 08/13/2020 12:00:00 AM EDT Patient has never smoked co mpleted Patient has never smoked [facility] ([facility]) Vital Signs ID Date Data Source UNK Name Value Range Interpretation Code Description Data Source(s) [place] body weight 105 [lb_av] 105 [lb_av] [facility] T ([facility], ) Body weight 199.00 [lb_av] 199.00 [lb_av] [facility] ([facility]) Body weight 90.266 kg 90.266 kg [facility] ([facility]) Systolic blood pressure 160 mm[Hg] 160 mm[Hg] M [facility] ([facility]) Rechecked 138/86 Diastolic blood pressure 90 mm[Hg] 90 mm[Hg] [facility] ([facility]) Rechecked 138/86 Heart rate 74 /min 74 /min [facility] ([facility]) Oxygen saturation in Arterial blood by Pulse oximetry 97 % 97 % [facility] ([facility]) Body height 61 [in_i] 61 [in_i] [facility] ([facility]) 5'1" Body mass index (BMI) [Ratio] 37.6 kg/m2 37.6 k g/m2 [facility] Body surface area Derived from formula 1.88 m2 1.88 m2 [facility] ([facility]) Diastolic blood pressure 80 mm[Hg] 80 mm[Hg] [facility] Systolic blood pressure 110 mm[Hg] 110 mm[Hg] M [facility] ([facility], ) Heart rate 80 /min 80 /min [facility] Respiratory rate 16 /min 16 /min [facility] ( [facility]) Systolic blood pressure 132 mm[Hg] 132 mm[Hg] M [facility] ([facility]) Diastolic blood pressure 84 mm[Hg] 84 mm[Hg] [facility] ([facility]) Body mass index (BMI) [Ratio] 42.8 kg/m2 42.8 k g/m2 [facility] ([facility]) Respiratory rate 16 /min 16 /min [facility] ( [facility]) Body temperature 98.1 [degF] 98.1 [degF] [facility]) [place] body weight 100 [lb_av] 100 [lb_av] [facility] T ([facility]) Body height 58.0 [in_i] 58.0 [in_i] [facility] ([facility]) 4'10" Body weight 205.00 [lb_av] 205.00 [lb_av] [facility] T ([facility]) Oxygen saturation in Arterial blood by Pulse oximetry 99 % 99 % [facility] ([facility]) Oxygen saturation in Arterial blood by Pulse oximetry 98 % 98 % [facility] ([facility], ) Body weight 206.00 [lb_av] 206.00 [lb_av] [facility] T ([facility], ) Body height 61 [in_i] 61 [in_i] [facility] ([facility]) 5'1" Body weight 93.442 kg 93.442 kg [facility] ([facility]) Body temperature 97.3 [degF] 97.3 [degF] [facility] ([facility]) Body surface area Derived from formula 1.91 m2 1.91 m2 [facility] ([facility]) Oxygen saturation in Arterial blood by Pulse oximetry 98 % 98 % [facility] ([facility]) Body temperature 97.3 [degF] 97.3 [degF] [facility] ([facility]) Body height 61 [in_i] 61 [in_i] [facility] ([facility]) 5'1" Body weight 206.00 [lb_av] 206.00 [lb_av] [facility] ([facility]) Body mass index (BMI) [Ratio] 38.9 kg/m2 38.9 k g/m2 [facility] ([facility]) [place] body weight 105 [lb_av] 105 [lb_av] [facility] ([facility]) Body weight 93.442 kg 93.442 kg [facility] ([facility]) Body surface area Derived from formula 1.91 m2 1.91 m2 [facility] ([facility]) Systolic blood pressure 130 mm[Hg] 130 mm[Hg] [facility]) Diastolic blood pressure 80 mm[Hg] 80 mm[Hg] [facility] ([facility]) Heart rate 65 /min 65 /min [facility] ([facility]) Body mass index (BMI) [Ratio] 38.9 kg/m2 38.9 k g/m2 [facility] ([facility]) [place] body weight 105 [lb_av] 105 [lb_av] [facility] ([facility]) Body temperature 96.5 [degF] 96.5 [degF] [facility] ([facility]) Body height 59 [in_i] 59 [in_i] [facility] ([facility]) 4'11" Body weight 195.50 [lb_av] 195.50 [lb_av] [facility] ([facility]) Body mass index (BMI) [Ratio] 39.5 kg/m2 39.5 k g/m2 [facility] ([facility]) Diastolic blood pressure 80 mm[Hg] 80 mm[Hg] [facility] ([facility]) Body mass index (BMI) [Ratio] 40.2 kg/m2 40.2 k g/m2 [facility] ([facility]) Heart rate 72 /min 72 /min [facility] ([facility]) Oxygen saturation in Arterial blood by Pulse oximetry 98 % 98 % [facility] ([facility]) [place] body weight 100 [lb_av] 100 [lb_av] [facility] T ([facility]) Body height 58.0 [in_i] 58.0 [in_i] [facility] ([facility]) 4'10" Systolic blood pressure 124 mm[Hg] 124 mm[Hg] [facility] Body weight 192.38 [lb_av] 192.38 [lb_av] [facility] T ([facility]) Respiratory rate 16 /min 16 /min [facility] ( [facility]) Body temperature 97.1 [degF] 97.1 [degF] [facility]) Body temperature 97.5 [degF] 97.5 [degF] [facility] ([facility] ) Diastolic blood pressure 78 mm[Hg] 78 mm[Hg] [facility] ([facility], ) Heart rate 76 /min 76 /min [facility] ([facility], ) Systolic blood pressure 110 mm[Hg] 110 mm[Hg] [facility] ([facility], ) Respiratory rate 16 /min 16 /min [facility] ( [facility], ) Systolic blood pressure 120 mm[Hg] 120 mm[Hg] [facility] ([facility], ) Diastolic blood pressure 80 mm[Hg] 80 mm[Hg] [facility] ([facility], ) Heart rate 63 /min 63 /min [facility] ([facility], ) Oxygen saturation in Arterial blood by Pulse oximetry 99 % 99 % [facility] ([facility], ) Body temperature 97.3 [degF] 97.3 [degF] [facility] ([facility], ) Body height 61 [in_i] 61 [in_i] [facility] ([facility], ) 5'1" Body weight 195.00 [lb_av] 195.00 [lb_av] [facility] ([facility]) Body mass index (BMI) [Ratio] 36.8 kg/m2 36.8 k g/m2 [facility] ([facility]) [place] body weight 105 [lb_av] 105 [lb_av] [facility] ([facility]) Body weight 88.452 kg 88.452 kg [facility]) Body surface area Derived from formula 1.87 m2 1.87 m2 [facility] ([facility]) Body temperature 97.6 [degF] 97.6 [degF] [facility] ([facility]) Body height 60 [in_i] 60 [in_i] [facility] ([facility]) 5'0" Body weight 180.00 [lb_av] 180.00 [lb_av] [facility] T ([facility]) Body mass index (BMI) [Ratio] 35.1 kg/m2 35.1 k g/m2 [facility]) Body height 61 [in_i] 61 [in_i] [facility] ([facility]) 5'1" Body mass index (BMI) [Ratio] 34.0 kg/m2 34.0 k g/m2 [facility] ([facility]) Body weight 180.00 [lb_av] 180.00 [lb_av] [facility]) Systolic blood pressure 136 mm[Hg] 136 mm[Hg] [facility]) Diastolic blood pressure 82 mm[Hg] 82 mm[Hg] [facility] ([facility]) Heart rate 73 /min 73 /min [facility] ([facility], [facility]) Oxygen saturation in Arterial blood by Pulse oximetry 99 % 99 % [facility] ([facility], [facility]) Body temperature 98.6 [degF] 98.6 [degF] [facility] ([facility]) ID Date Data Source [id number] 01/09/2020 04:00:00 PM EDT [facility] Name Value Range Interpretation Code Description Data Source(s) WEIGHT RECORDED 180.00 pounds 180.00 pounds [facility] Height 61 Inches 061 Inches [facility] ID Date Data Source [id number] 01/09/2020 03:58:29 PM EDT [facility] Name Value Range Interpretation Code Description Data Source(s) WEIGHT RECORDED 180.00 pounds 180.00 pounds [facility] Height 61 Inches 061 Inches [facility]
--- NOTE | 2021-02-11 11:45 | REP ---
INDICATION: FALL COMPARISON: None. TECHNIQUE: Four views right ankle. This study is performed at 10:38 a.m. and is submitted for interpretation at 11:37 a.m. for reasons unknown to me. FINDINGS: There is nondisplaced fracture of the distal fibula. A small round calcification at the tip of the lateral malleolus may represent an old avulsion fracture.There is moderate soft tissue swelling. The ankle mortise is anatomic. There is moderate spurring of the inferior calcaneus. IMPRESSION: Nondisplaced fracture distal fibula. <Electronically signed by Kingsley Marroquin > 02/11/21 1145
--- NOTE | 2021-02-11 11:47 | REP ---
INDICATION: FALL COMPARISON: None. TECHNIQUE: AP and lateral right lower leg. The study is performed at 10:40 a.m. and the study is submitted for interpretation at 11:37 a.m.. FINDINGS: There is a nondisplaced fracture of the distal fibula. There is no other evidence of acute fracture or dislocation. There is mild narrowing of the medial knee joint with mild diffuse spurring and chondrocalcinosis of the knee joint. There is mild superior patellar spurring. There is patellofemoral joint space narrowing. There appears to be a small suprapatellar joint effusion. The ankle mortise is anatomic. Rounded calcific density at the tip of the lateral malleolus probably represents an old fracture. IMPRESSION: Nondisplaced fracture distal fibula. <Electronically signed by Kingsley Marroquin > 02/11/21 1143
--- OUTSIDE RECORDS SUMMARY | 2021-02-11 12:17 | CCD ---
Author Author [facility] Organization [facility] Address Unknown Phone Unavailable Care Team Providers Care Membership Sales Representative Name Role Phone NO, PCP Unavailable Unavailable [...] Geovanna SILVEIRA, PA-C Unavailable Unavailabl e Fish, [facility], PA-C Unavailable Unavailabl e Fish, [facility], PA-C Unavailable Unavailabl e Fish, [facility], PA-C Unavailable Unavailabl e Fish, [facility], PA-C Unavailable Unavailabl e Fish, [facility], PA-C Unavailable Unavailabl e Fish, [facility], PA-C Unavailable Unavailabl e Fish, [facility], PA-C Unavailable Unavailabl e Fish, [facility], PA-C Unavailable Unavailabl e Fish, [facility], PA-C Unavailable Unavailabl e Fish, [facility], PA-C Unavailable Unavailabl e Fish, [facility], PA-C Unavailable Unavailabl e Fish, [facility], PA-C Unavailable Unavailabl e Fish, [facility], PA-C Unavailable Unavailabl e Fish, [facility], PA-C Unavailable Unavailabl e Fish, [facility], PA-C Unavailable Unavailabl e Fish, [facility], PA-C Unavailable Unavailabl e Fish, [facility], PA-C Unavailable Unavailabl e Fish, [facility], PA-C Unavailable Unavailabl e Fish, [facility], PA-C Unavailable Unavailabl e Fish, [facility], PA-C Unavailable Unavailabl e Fish, [facility], PA-C Unavailable Unavailabl e Fish, [facility], PA-C Unavailable Unavailabl e Fish, [facility], PA-C Unavailable Unavailabl e Fish, [facility], PA-C Unavailable Unavailabl e Fish, [facility], PA-C Unavailable Unavailabl e Fish, [facility], PA-C Unavailable Unavailabl e Fish, [facility], PA-C Unavailable Unavailabl e Fish, [facility], PA-C Unavailable Unavailabl e Fish, [facility], PA-C Unavailable Unavailabl e Fish, [facility], PA-C Unavailable Unavailabl e Fish, [facility], PA-C Unavailable Unavailabl e Fish, [place] Edie MPAS, PA-C Unavailable Unavailabl e LETTIERE, [...] Unavailable Unavailable AlexisAnn MD Unavailable Unavailable AlexisAnn MD Unavailable Unavailable AlexisAnn MD Unavailable Unavailable AlexisAnn MD Unavailable Unavailable [...] Unavailable JARRELL-LAURA, KENROY DO Unavailable Unavailable JARRELL-LAURA, KENRYO DO Unavailable Unavailable JARRELL-LAURA, KENROY DO Unavailable [...] J Jessica PA Unavailable Unavailable Trickey, J Jsesica PA Unavailable Unavailable Trickey, J Jessica PA [...] is protected by Article 27-F of the [facility] Public Health law. If you continue you may have access to information: Regarding HIV / AIDS; Provided by facilities licensed or operated by the [facility] Office of Mental Health; or Provided by the [facility] Office for People With Developmental Disabilities. If such information is present, then the following [facility] mandated warning applies: This information has [...] law may result in a fine or intermediate sentence or both. A general authorization for the release of medical or other information is NOT sufficient authorization for further disc losure. Allergies and Adverse Reactions Type Description Substance Reaction Status Data Source(s ) No Known Environmental Allergies No Known Environmental Al [facility] No Known Food Allergies No Known Food Allergies [facility] Drug [facility] Family History Family Member Name Family Member Gender Family Member Status Date o f Status Description Data Source(s) Unknown Female Problem [facility] ([facility]) SMALL CELL Unknown Female Problem [facility] ([facility]) Unknown Female Problem [facility] ([facility]) Unknown Female Problem [facility] ([facility]) Unknown Female Problem [facility] ([facility]) Unknown Female Problem [facility] ([facility]) Encounters Encounter Providers Location Date Indications Data Source(s ) Outpatient Attender: DELLA Gallegos/Issa/Yash/Elva dl 01/29/2021 03:00:00 PM EDT [facility] ([facility] Office Visit Attender: QIAN CASTANEDA Physical Therapy 2020 01:40:00 PM EDT [facility] ([facility]) Outpatient Attender: Jessica CASTANEDA Main office [facility] 12/11/2020 11:15:00 AM EDT [facility] ([facility] Office Visit Attender: Jace CASTANEDA Family [facility] 08/14/2020 11:00:00 AM EDT [facility] ([facility]) Office Visit Attender: Jessica CASTANEDA Main office - [facility] 07/10/2020 01:30:00 PM EDT [facility] ([facility]) OFFICE OUTPATIENT VISIT 15 MINUTES Attender: QIAN CASTANEDA Phys ical Therapy 06/04/2020 12:20:00 PM EST [facility] ([facility]) OFFICE OUTPATIENT VISIT 15 MINUTES Attender: QIAN CASTANEDA Phys ical Therapy 04/21/2020 10:00:00 AM EST [facility] ([facility]) OFFICE OUTPATIENT NEW 30 MINUTES Attender: Sea Escalera Physical Therapy 03/19/2020 07:00:00 AM EST [facility] ([facility]) Outpatient Attender: KENROY WHITT DO [facility] 02/13/2020 11:00:00 AM EDT [facility] ([facility]) Outpatient Attender: QIAN CASTANEDA Physical Therapy 02/12/2020 1 0:00:00 AM EDT [facility] ([facility]) Outpatient Attender: QIAN CASTANEDA Physical Therapy 01/22/2020 1 1:00:00 AM EDT [facility] ([facility]) Outpatient Attender: Edie SILVEIRA PA-C Physical Therapy 01/18/2020 02:00:00 PM EDT [facility] ([facility]) Office Visit Attender: Darryl CASTANEDA Physical Therapy 03:00:00 PM EDT [facility] ([facility]) Outpatient Attender: Ann Espinoza MDConsultant: PCP NO 01/02/2020 09:30:00 AM EDT - 01/02/2020 01:31:00 PM EDT [facility] Patient discharged. OFFICE OUTPATIENT VISIT 15 MINUTES Attender: QIAN CASTANEDA Phys ical Therapy 12/28/2019 09:00:00 AM EDT MED[facility] ([facility]) Outpatient Attender: Ann Espinoza MDConsultant: PCP NO 12/26/2019 07:45:00 AM EDT - 12/26/2019 10:20:00 AM EDT [facility] Patient discharged. Outpatient Attender: QIAN CASTANEDA Physical Therapy 12/17/2019 0 9:30:00 AM EDT MED[facility] ([facility]) Outpatient Attender: CASSANDRA Harper chandan 12/13/2019 02:35:00 PM EDT [facility] ([facility] Immunizations Vaccine Date Status Description Data Source(s) COVID-19 VACCINE, MRNA-1273, LNP-S (MODERNA)/PF 06/10/2020 1 2:00:00 AM EST completed [facility] COVID-19 VACCINE Moderna 05/13/2020 12:00:00 AM EST completed [facility] Vaccine Series Complete: NOThis Data was Submitted to [facility] Via [employer]. COVID-19 VACCINE, MRNA-1273, LNP-S (MODERNA)/PF 05/13/2020 1 2:00:00 AM EST completed [facility] VARICELLA-ZOSTER GE/AS01B/PF 02/15/2020 12:00:00 AM EDT completed [facility] INFLUENZA VIRUS VACCINE QUADRIVAL SPLIT 2019-(65 YR UP)/PF 01/22/2020 12:00:00 AM EDT completed [...] 12/25/2020 12:00:00 AM EDT ORAL active MED[facility] ([facility]) 100 mg 12/19/2020 12:00:00 AM EDT capsule [...] Medrol 12/11/2020 12:00:00 AM EDT active MED[facility] ([facility]) Baclofen 10 MG Oral Tablet Baclofen 12/11/2020 12:00:00 AM EDT ORAL active MED[facility] ([facility]) 15 mg 12/10/2020 12:00:00 AM [...] (Ergocalciferol) 2020 12:00:00 AM EDT active [facility] ([facility]) 100 mg 09/18/2020 12:00:00 AM EDT capsule [...] BY MOUTH TWICE A DAY SOLD: 08/26/2020 [facility] Calcium Carbonate 600 MG / Cholecalciferol 400 UNT Oral Tabl et Calcium 600+D 08/18/2020 12:00:00 AM EDT ORAL active [facility] ([facility]) 1 mg 08/07/2020 12:00:00 AM EDT tablet [...] 06/04/2020 12:00:00 AM EST ORAL active [facility] ([facility]) gabapentin 100 MG Oral Capsule Gabapentin 06/04/2020 12:00:00 AM EST ORAL active [facility] ([facility]) 100 mg 05/26/2020 12:00:00 AM EST capsule [...] AFTER MEALS SOLD: [facility] 100 mg 02/13/2020 12:00:00 AM EDT capsule 90 TAKE ONE CAPSULE BY MOUTH THREE TIMES A DAY TAKE ONE CAPSULE BY MOUTH THREE TIMES A DAY SOLD: 02/15/2020 [facility] Shingrix Shingrix 02/13/2020 12:00:00 AM EDT SUBCUTANEOUS active [facility] ([facility]) 1 mg 01/24/2020 12:00:00 AM EDT tablet [...] 01/22/2020 12:00:00 AM EDT ORAL completed [facility] ([facility]) meloxicam 15 MG Oral Tablet [Mobic] Mobic 01/22/2020 12:00:00 AM EDT ORAL completed [facility] ([facility]) 3 ML Sodium Hyaluronate 10 MG/ML Prefilled Syringe [Gel-One] Gel-One 01/14/2020 12:00:00 AM EDT completed [facility] ([facility]) 50 mg 01/14/2020 12:00:00 AM EDT tablet 30 TAKE ONE TABLET BY MOUTH EVERY 4 TO 6 HOURS NEEDED FOR PAIN MAXIMUM DAILY DOSE = FOUR TABLETS TAKE ONE TABLET BY MOUTH EVERY 4 TO 6 HOURS NEEDED FOR PAIN MAXIMUM DAILY DOSE = FOUR TABLETS SOLD: 01/14/2020 [facility] tramadol hydrochloride 50 MG Oral Tablet Tramadol HCL 01/14/2020 12:00:00 AM EDT completed [facility] ([facility]) 90 mcg/actuation 01/11/2020 12:00:00 AM EDT HFA aerosol inha ler 17 INHALE TWO PUFFS BY MOUTH FOUR TIMES A DAY NEEDED INHALE TWO PUFFS BY MOUTH FOUR TIMES A DAY NEEDED SOLD: 01/11/2020 [facility] 160-4.5 mcg/actuation 01/11/2020 12:00:00 AM EDT [...] PRIOR TO SURGERY SOLD: 12/18/2019 [facility] Methylprednisolone 4 MG Oral Tablet [Medrol] Medrol 12:00:00 AM EDT completed [facility] ([facility]) 1 % 12/13/2019 12:00:00 AM EDT gel 100 APPLY DIRECTED ON RIGHT LEG / HIP TWO TIMES A DAY APPLY DIRECTED ON RIGHT LEG / HIP TWO TIMES A DAY S OLD: 12/13/2019 [facility] 500 mg 12/13/2019 12:00:00 AM EDT tablet 60 TAKE ONE TABLET BY MOUTH TWICE A DAY WITH FOOD TAKE ONE TABLET BY MOUTH TWICE A DAY WITH FOOD SOLD: [facility] Cyclobenzaprine hydrochloride 10 MG Oral Tablet CYCLOBENZAPR INE HCL 12/13/2019 12:00:00 AM EDT tablet 14 TAKE ONE TABLET BY MOUTH AT BEDTIME TAKE ONE TABLET BY MOUTH AT BEDTIME SOLD: 12/13/2019 [facility] 500 mg 12/13/2019 12:00:00 AM EDT [...] type / Coverage type Policy ID Covered republican ID Covered republican's relationship to yañez Policy Yañez Plan Information [facility] [id number] SP [id number] Smita Claims () Workers Compensation [id number] Self r Commercial [id number] Self [id number] [facility] [id number] SP [id number] r Commercial [id number] Self [id number] [facility] Maintenance Organization (O) [id number] Self Y [id number] [facility] Health Maintenance Organization (O) [id number] Self Y [id number] [facility] [id number] Self [id number] [facility] Commercial [id number] S f [id number] [facility] [id number] SP [id number] UMR O [id number] S [id number] [employer] Part B [id number] [id number] Self [id number] R [facility] [id number] [employer] [id number] S elf [id number] [employer] [id number] S elf [id number] [employer] [id number] S elf [id number] [employer] [id number] Self [id number] [employer] [id number] S elf [id number] [employer] [id number] Self [id number] [employer] [id number] S elf [id number] [employer] [id number] S elf [id number] [employer] [id number] Self [id number] [employer] [id number] S elf [id number] [employer] [id number] S elf [id number] [employer] PPO O [id number] S [id number] [employer] Commercial [id number] S elf [id number] [employer] [id number] S elf [id number] [employer] [id number] S elf [employer] Commercial MRI Brain No Auth Requird [id number] Self MRI Brain No Auth Requird [employer] [id number] SP [id number] [employer] CLAIM ADMIN WORK O [id number] S [id number] [employer] CLAIM ADMIN WORK COMP [id number] SP [id number] [employer] CLAIM ADMIN WORK COMP [id number] SP [id number] MEDFOCUS P [id number] S [id number] MEDICARE [id number] SP [id number] UMR O [id number] O [id number] MEDICARE C [id number] S [id number] MEDICARE PART A -O/P [id number] Problems, Conditions, and Diagnoses Code Display Name Description Problem Type Effective Dates Data Source(s) H268 Other specified cataract Other specified cataract Diag nosis 01/02/2020 09:30:00 AM EDT [facility] J45.30 Mild persistent asthma Mild persistent asthma Problem 07/10/2020 12:00:00 AM EDT ZHENG ([facility], ) Surgeries/Procedures Procedure Description Date Indications Data Source(s) Spirometry 01/29/2021 12:00:00 AM RL HUTTON ([facility], ) OFFICE OUTPATIENT VISIT 15 MINUTES 01/29/2021 12:00:00 AM EDT ZHENG ([facility]) PHYSICIAN TELEPHONE EVALUATION 5-10 MIN 12/25/2020 12: 00:00 AM EDT ZHENG ([facility]) OFFICE OUTPATIENT VISIT 15 MINUTES 12/25/2020 12:00:00 AM EDT [facility] ([facility] OFFICE OUTPATIENT VISIT 25 MINUTES 12/11/2020 12:00:00 AM EDT [facility] ([facility] ) Mammography (procedure) 08/18/2020 12:00:00 AM EDT [facility] ([facility]) PHYSICIAN TELEPHONE EVALUATION 5-10 MIN 07/10/2020 12: 00:00 AM EDT [facility] ([facility] ) Needle electromyography, each extremity, with related paraspinal areas, when performed, done with nerve conduction, amplitude and latency/velocity study; complete, five or more muscles studied, innervated by three or more nerves or four or more spinal levels (list separately in addition to the code for primary procedure). 03/19/2020 12:00:00 AM EST MEDEN T ([facility] ) 38919 Nerve conduction studies 5-6 studies NEW 201203/19/2020 12:00:00 AM EST [facility] ([facility] ) RADEX SPINE LUMBOSACRAL 2/3 VIEWS 01/22/2020 12:00:00 AM EDT [facility] ([facility] ) ARTHROCENTESIS ASPIR&/INJECTION MAJOR JT/BURSA 12:00:00 AM EDT MED[facility] ([facility] ) ARTHROCENTESIS ASPIR&/INJECTION MAJOR JT/BURSA 12:00:00 AM EDT [facility] ([facility] ) Results ID Date Data Source [id number] 01/29/2021 02:39:00 PM EDT MED[facility] ([facility], ) Name Value Range Interpretation Code Description Data Sena rce(s) Supporting Document(s) PDFReport Laboratory test result MEDENT ([facility], ) FVC-Pre 1.69 L MED[facility] ([facility], ) FVC-Pred 2.77 L MED[facility] ([facility], ) FVC-%Pred-Pre 60 L MEDENT ([facility], ) FVC-LLN 2.14 L MED[facility] ([facility], ) Fev1-%Pred-Pre 68 L MED[facility] ([facility], ) Fev1-Pred 2.11 L MED[facility] ([facility], ) Fev1-Pre 1.45 L MED[facility] ([facility]) Fev6-Pre 1.69 L [facility] ([facility]) Fev6-Pred 2.65 L [facility] ([facility]) Fev1-LLN 1.58 L [facility] ([facility]) Fev6-LLN 2.04 L [facility] ([facility]) Fev6-%Pred-Pre 63 L MED[facility] ([facility]) Qpn7krd-Kwhz 77 % [facility] ([facility]) Ojx6zoo-Cxy 86 % [facility] ([facility]) Gnc3rla-%Pred-Pre 111 % MED[facility] ([facility]) Zrn2cvo-VJI 67 % [facility] ([facility]) Qln5icx-%Pred-Pre 104 % [facility] ([facility]) Hxr7fua-Iinb 96 % [facility] ([facility]) Wcw1lcj-Zvo 100 % [facility] ([facility]) FEFMax-Pre 5.23 L/E/sec MED[facility] ([facility]) FEFMax-%Pred-Pre 95 L/E/sec [facility] ([facility]) FEFMax-Pred 5.48 L/E/sec [facility] ([facility], ) Mjl4906-Jwtg 1.92 L/E/sec MED[facility] ([facility]) FEFMax-LLN 3.92 L/E/sec [facility] ([facility]) Ixj0170-Tai 1.95 L/E/sec [facility] ([facility]) Kqm7292-%Pred-Pre 101 L/E/sec [facility] ([facility]) Ioc4144-PNR 0.79 L/E/sec [facility] ([facility]) ExpTime-Pre 6.02 sec [facility] ([facility]) Khy3mjz7-Wmz 86 % [facility] ([facility], ) Nkg7ypl9-Ctix 80 % [facility] ([facility]) Yax9ucc7-OVY 71 % [facility] ([facility], ) Sdh6wce0-%Pred-Pre 107 % [facility] ([facility]) ID Date Data Source [id number] 12/26/2020 08:58:00 AM EDT [facility] ([facility] ) Name Value Range Interpretation Code Description Data Sena rce(s) Supporting Document(s) Phenytoin [Mass/volume] in Serum or Plasma 9.3 UG/ML 10.0-20.0 [facility] ([facility], ) ID Date Data Source [id number] 12/26/2020 08:58:00 AM EDT [facility] ([facility]) Name Value Range Interpretation Code Description Data Sena rce(s) Supporting Document(s) Phenytoin [Mass/volume] in Serum or Plasma 9.3 UG/ML 10.0-20.0 Below low normal [facility] ([facility]) ID Date Data Source [id number] 12/11/2020 03:27:00 PM EDT [facility] ([facility] ) Name Value Range Interpretation Code Description Data Sena rce(s) Supporting Document(s) Creatinine For GFR 0.60 mg/dL 0.55-1.30 [facility] ([facility] ) Glomerular Filtration Rate Laboratory test result [facility] ([facility]) <content>Units are mL/min/1.73 m2</content>
<content></content>
<content>Chronic Kidney Disease Staging per NKF:</content>
<content></content>
<content>Stage I & II GFR >=60 Normal to Mildly Decreased</content>
<content>Stage III GFR 30- 59 Moderately Decreased</content>
<content>Stage IV GFR 15-29 Severely Decreased</content>
<content>Stage V GFR <15 Very Little GFR Left</content>
<content>ESRD GFR <15 on HOSPITAL HOUSEKEEPER</content>
<content></content> ID Date Data Source [id number] 12/11/2020 03:27:00 PM EDT [facility] ([facility]) Name Value Range Interpretation Code Description Data Sena rce(s) Supporting Document(s) Urea nitrogen [Mass/volume] in Serum or Plasma 14 mg/dL 7-18 [facility] ([facility]) ID Date Data Source [id number] 12/11/2020 03:27:00 PM EDT [facility] ([facility]) Name Value Range Interpretation Code Description Data Sena rce(s) Supporting Document(s) Creatinine For GFR 0.60 mg/dL 0.55-1.30 Normal (applies to non -numeric results) [facility] Glomerular Filtration Rate Laboratory test result Normal (applies to non- numeric results) [facility]) <content>Units are mL/min/1.73 m2</content>
<content></content>
<content>Chronic Kidney Disease Staging per NKF:</content>
<content></content>
<content>Stage I & II GFR >=60 Normal to Mildly Decreased</content>
<content>Stage III GFR 30- 59 Moderately Decreased</content>
<content>Stage IV GFR 15-29 Severely Decreased</content>
<content>Stage V GFR <15 Very Little GFR Left</content>
<content>ESRD GFR <15 on HOSPITAL HOUSEKEEPER</content>
<content></content> ID Date Data Source [id number] 12/11/2020 03:27:00 PM EDT [facility] ([facility]) Name Value Range Interpretation Code Description Data Sena rce(s) Supporting Document(s) Urea nitrogen [Mass/volume] in Serum or Plasma 14 mg/dL 7 -18 Normal (applies to non-numeric results) [facility] ID Date Data Source [id number] 07/14/2020 09:37:00 AM EDT [facility] ([facility]) Name Value Range Interpretation Code Description Data Sena rce(s) Supporting Document(s) Phenytoin [Mass/volume] in Serum or Plasma 10.3 UG/ML 10.0-20.0 [facility] ([facility]) ID Date Data Source [id number] 07/14/2020 09:37:00 AM EDT MED[facility] ([facility]) Name Value Range Interpretation Code Description Data Sena rce(s) Supporting Document(s) Blood Urea Nitrogen 17 mg/dL 7-18 [facility] ([facility]) Glucose, Fasting 79 mg/dL 70-100 [facility] ([facility]) Glomerular Filtration Rate Laboratory test result [facility] ([facility]) <content>Units are mL/min/1.73 m2</content>
<content></content>
<content>Chronic Kidney Disease Staging per NKF:</content>
<content></content>
<content>Stage I & II GFR >=60 Normal to Mildly Decreased</content>
<content>Stage III GFR 30- 59 Moderately Decreased</content>
<content>Stage IV GFR 15-29 Severely Decreased</content>
<content>Stage V GFR <15 Very Little GFR Left</content>
<content>ESRD GFR <15 on HOSPITAL HOUSEKEEPER</content>
<content></content> Creatinine For GFR 0.61 mg/dL 0.55-1.30 [facility] ([facility]) Potassium Serum 4.5 meq/L 3.5-5.1 [facility] ([facility]) Chloride Level 107 meq/L 98-107 [facility] ([facility]) Sodium Level 140 meq/L 136-145 [facility] ([facility]) Carbon Dioxide Level 28 meq/L 21-32 [facility] ([facility]) Anion Gap 5 meq/L 8-16 [facility] ([facility]) Calcium Level 8.1 mg/dL 8.8-10.2 [facility] ([facility]) Ast/Sgot 18 U/L 7-37 [facility] ([facility]) Alkaline Phosphatase 145 U/L 45-117 [facility] ([facility]) Alt/SGPT 18 U/L 12-78 [facility] ([facility]) Total Protein 6.6 GM/DL 6.4-8.2 [facility] ([facility]) Bilirubin,Total 0.1 mg/dL 0.2-1.0 [facility] ([facility]) Albumin/Globulin Ratio 0.8 1.2-2.2 [facility] ([facility]) Albumin 3.0 GM/DL 3.2-5.2 [facility] ([facility]) ID Date Data Source [id number] 07/14/2020 09:37:00 AM EDT [facility] ([facility]) Name Value Range Interpretation Code Description Data Sena rce(s) Supporting Document(s) White Blood Count 7.1 10 4.0-10.0 [facility] ([facility]) Red Blood Count 4.15 10 4.00-5.40 [facility] ([facility]) Hemoglobin 12.2 g/dL 12.0-15.5 [facility] ([facility]) Mean Corpuscular Volume 94.0 fl 80.0-96.0 M EDENT ([facility]) Hematocrit 39.0 % 36.0-47.0 [facility] ([facility]) Mean Corpuscular Hemoglobin 29.4 pg 27.0-33.0 [facility] ([facility]) Mean Corpuscular HGB Conc 31.3 g/dL 32.0-36.5 [facility] ([facility]) Red Cell Distribution Width 14.6 % 11.5-14.5 [facility] ([facility]) Platelet Count, Automated 209 10 150-450 [facility] ([facility]) Lymph % 32.2 % 24.0-44.0 [facility] ([facility]) [place] % 9.1 % 2.0-8.0 [facility] ([facility]) Neutrophils % 53.5 % 36.0-66.0 [facility] ([facility]) Eos % 4.2 % 0.0-3.0 MEDENT ([facility]) Baso % 0.7 % 0.0-1.0 MEDENT ([facility]) Nucleated Red Blood Cell % 0.0 % 0-0 MED ENT ([facility], ) Immature Granulocyte % 0.3 % 0-3.0 MEDENT ([facility], ) Lymph # 2.3 10 1.5-5.0 MEDENT ([facility], ) Neutrophils # 3.8 10 1.5-8.5 MEDENT ([facility], ) [place] # 0.7 10 0.0-0.8 MEDENT ([facility], ) Baso # 0.1 10 0.0-0.2 MEDENT ([facility], ) Eos # 0.3 10 0.0-0.5 MEDENT ([facility], ) ID Date Data Source [id number] 07/14/2020 09:37:00 AM EDT [facility] ([facility]) Name Value Range Interpretation Code Description Data Sena rce(s) Supporting Document(s) Phenytoin [Mass/volume] in Serum or Plasma 10.3 UG/ML 10.0- 20.0 Normal (applies to non-numeric results) [facility] ID Date Data Source [id number] 07/14/2020 09:37:00 AM EDT MEDENT ([facility]) Name Value Range Interpretation Code Description Data Sena rce(s) Supporting Document(s) Blood Urea Nitrogen 17 mg/dL 7-18 Normal (applies to non-nume migel results) MEDENT ([facility]) Glucose, Fasting 79 mg/dL 70-100 Normal (applies to non-numeric results) MEDENT ([facility]) Creatinine For GFR 0.61 mg/dL 0.55-1.30 Normal (applies to non -numeric results) MEDENT ([facility]) Sodium Level 140 meq/L 136-145 Normal (applies to non-numeric res ults) [facility] Glomerular Filtration Rate Laboratory test result Normal (applies to non- numeric results) [facility] ([facility]) <content>Units are mL/min/1.73 m2</content>
<content></content>
<content>Chronic Kidney Disease Staging per NKF:</content>
<content></content>
<content>Stage I & II GFR >=60 Normal to Mildly Decreased</content>
<content>Stage III GFR 30- 59 Moderately Decreased</content>
<content>Stage IV GFR 15-29 Severely Decreased</content>
<content>Stage V GFR <15 Very Little GFR Left</content>
<content>ESRD GFR <15 on [employer]</content>
<content></content> Chloride Level 107 meq/L 98-107 Normal (applies to non-numeric r esults) MEDENT ([facility]) Potassium Serum 4.5 meq/L 3.5-5.1 Normal (applies to non-numeric results) MED[facility] ([facility]) Anion Gap 5 meq/L 8-16 Below low normal MEDENT ( [facility]) Carbon Dioxide Level 28 meq/L 21-32 Normal (applies to non-num asia results) MEDENT ([facility]) Calcium Level 8.1 mg/dL 8.8-10.2 Below low normal MEDEN T ([facility]) Alt/SGPT 18 U/L 12-78 Normal (applies to non-numeric resul ts) MEDENT ([facility]) Ast/Sgot 18 U/L 7-37 Normal (applies to non-numeric resul ts) MED[facility] ([facility]) Bilirubin,Total 0.1 mg/dL 0.2-1.0 Below low normal MED ENT ([facility]) Alkaline Phosphatase 145 U/L 45-117 Above high normal MEDENT ([facility]) Albumin 3.0 GM/DL 3.2-5.2 Below low normal MEDENT ( [facility]) Albumin/Globulin Ratio 0.8 1.2-2.2 Below low normal MEDENT ([facility]) Total Protein 6.6 GM/DL 6.4-8.2 Normal (applies to non-numeric re sults) MED[facility] ([facility]) ID Date Data Source [id number] 07/14/2020 09:37:00 AM EDT MEDENT ([facility]) Name Value Range Interpretation Code Description Data Sena rce(s) Supporting Document(s) White Blood Count 7.1 10 4.0-10.0 Normal (applies to non-numeri c results) MEDENT ([facility]) Hemoglobin 12.2 g/dL 12.0-15.5 Normal (applies to non-numeric resul ts) [facility] ([facility]) Red Blood Count 4.15 10 4.00-5.40 Normal (applies to non-numeric results) MED[facility] ([facility]) Hematocrit 39.0 % 36.0-47.0 Normal (applies to non-numeric resul ts) MED[facility] ([facility]) Mean Corpuscular Volume 94.0 fl 80.0-96.0 Normal ( applies to non-numeric results) MED[facility] ([facility]) Mean Corpuscular Hemoglobin 29.4 pg 27.0-33.0 Norm al (applies to non-numeric results) MEDENT ([facility]) Mean Corpuscular HGB Conc 31.3 g/dL 32.0-36.5 Below low normal MED[facility] ([facility]) Red Cell Distribution Width 14.6 % 11.5-14.5 Above high normal MEDENT ([facility]) Neutrophils % 53.5 % 36.0-66.0 Normal (applies to non-numeric re sults) MEDENT ([facility]) Platelet Count, Automated 209 10 150-450 Normal (applies to non-numeric results) MED[facility] ([facility]) [place] % 9.1 % 2.0-8.0 Above high normal MEDENT ([facility]) Lymph % 32.2 % 24.0-44.0 Normal (applies to non-numeric resul ts) MED[facility] ([facility]) Baso % 0.7 % 0.0-1.0 Normal (applies to non-numeric resul ts) [facility] ([facility]) Immature Granulocyte % 0.3 % 0-3.0 Normal (applies to non-n umeric results) [facility] ([facility]) Eos % 4.2 % 0.0-3.0 Above high normal MED[facility] ([facility]) Neutrophils # 3.8 10 1.5-8.5 Normal (applies to non-numeric re sults) [facility] ([facility]) Nucleated Red Blood Cell % 0.0 % 0-0 Normal (applies to n on-numeric results) [facility] ([facility]) [place] # 0.7 10 0.0-0.8 Normal (applies to non-numeric resul ts) [facility] ([facility]) Lymph # 2.3 10 1.5-5.0 Normal (applies to non-numeric resul ts) [facility] ([facility]) Eos # 0.3 10 0.0-0.5 Normal (applies to non-numeric resul ts) [facility] ([facility]) Baso # 0.1 10 0.0-0.2 Normal (applies to non-numeric resul ts) [facility] ([facility]) ID Date Data Source [id number] 07/10/2020 11:19:00 AM EDT MEDENT ([facility], ) Name Value Range Interpretation Code Description Data Sena rce(s) Supporting Document(s) PDFReport Laboratory test result MEDENT ([facility], ) FVC-Pre 1.71 L MEDENT ([facility]) FVC-%Pred-Pre 61 L MEDENT ([facility]) FVC-Pred 2.80 L MEDENT ([facility]) FVC-LLN 2.17 L MEDENT ([facility]) Fev1-%Pred-Pre 69 L MEDENT ([facility]) Fev1-Pred 2.14 L MEDENT ([facility]) Fev1-Pre 1.49 L MEDENT ([facility]) Fev6-Pre 1.71 L MEDENT ([facility]) Fev6-Pred 2.69 L MEDENT ([facility]) Fev1-LLN 1.61 L MEDENT ([facility]) Fev6-%Pred-Pre 63 L MEDENT ([facility]) Fev6-LLN 2.07 L MEDENT ([facility]) Ykg8url-Cfik 77 % MED[facility] ([facility]) Cew0cbm-%Pred-Pre 113 % MEDENT ([facility]) Fry3jgv-Tfx 87 % [facility] ([facility]) Rbr8dpk-Mdzs 96 % [facility] ([facility]) Qej4szn-Xjg 100 % [facility] ([facility]) Sdd2suz-RCU 67 % [facility] ([facility]) Lkn0pty-%Pred-Pre 104 % MED[facility] ([facility]) FEFMax-Pred 5.55 L/E/sec MEDENT ([facility]) FEFMax-Pre 5.28 L/E/sec MEDENT ([facility]) Jwp0110-Qoxn 1.96 L/E/sec MEDENT ([facility]) FEFMax-LLN 3.99 L/E/sec MEDENT ([facility]) FEFMax-%Pred-Pre 95 L/E/sec MEDENT ([facility]) Eue9297-Dex 2.02 L/E/sec MEDENT ([facility]) Cmo8477-%Pred-Pre 102 L/E/sec MEDENT ([facility]) Mwj8kii0-Ouyk 80 % MEDENT ([facility]) Ydl7408-URL 0.83 L/E/sec MEDENT ([facility]) ExpTime-Pre 7.54 sec MEDENT ([facility]) Hwv9zup1-%Pred-Pre 109 % MEDENT ([facility]) Sev6xtp0-JKI 71 % [facility] ([facility]) Bht2chg6-Fbe 87 % [facility] ([facility]) ID Date Data Source [id number] 01/29/2020 12:00:00 AM EDT [facility] Imaging Qian CASTANEDA Patient Name: ABEL [id number] [facility] Date [facility] 1955[facility] [place] [address] Date of Exam: 01/29/2020#: Fax: [phone] EXAM: CT LOWER EXTREMITY W/O CONTRASTCLINICAL INFORMATION: Atraumatic pain.Low dose 64 slice helical scanning through the right knee was obtainedusing 1 mm increments and reconstructed in both coronal and sagittalplanes. 3D reconstructions were also obtained. Post processing wasperformed at the physician's workstation.There is tricompartmental marginal osteophytosis. There is medialcompartmental narrowing which is dafl-ut-varmwkoy and patellofemoral jointspace narrowing which is hqyjwvif-xn-relgbm. Calcifications are seen inboth medial and lateral [...] structures.IMPRESSION:Degenerative changes as described above.Accredited by the [employer] in [place].LOUIS Esteves/Radha you for referring BEN MCKOY to our office. Electronically Signed - ROSCOE CHAVEZ DO 01/30/20 16:08 Name Value Range Interpretation Code Description Data Sena rce(s) Supporting Document(s) ID Date Data Source [id number] 01/29/2020 12:00:00 AM EDT [facility] Imaging Qian CASTANEDA Patient Name: ABEL [id number] [facility] Date of : 1955[place] [address] Date of Exam: 01/29/2020#: Fax: [phone] EXAM: [...] MD 01/29/2020 4:06 PMEastern Time ([place] & [place])VradV/evacTjose cruzk you for referring BEN MCKOY to our office. Electronically Signed - VRAD 01/29/20 16:57 Name Value Range Interpretation Code Description Data Sena rce(s) Supporting Document(s) ID Date Data Source [id number] 01/10/2020 10:07:00 AM EDT MEDENT ([facility]) Name Value Range Interpretation Code Description Data Sena rce(s) Supporting Document(s) PDFReport Laboratory test result MEDENT ([facility], ) FVC-Pre 1.93 L MEDENT ([facility]) FVC-Pred 2.80 L MEDENT ([facility]) FVC-%Pred-Pre 68 L MEDENT ([facility], ) Fev1-%Pred-Pre 81 L MEDENT ([facility]) FVC-LLN 2.17 L MED[facility] ([facility]) Fev1-Pre 1.73 L MED[facility] ([facility]) Fev1-Pred 2.14 L MED[facility] ([facility]) Fev6-%Pred-Pre 71 L MEDENT ([facility]) Fev6-Pre 1.93 L MEDENT ([facility], ) Fev6-Pred 2.69 L MEDENT ([facility], ) Fev1-LLN 1.61 L MEDENT ([facility]) Rvj4vzc-Spyw 77 % MED[facility] ([facility]) Fev6-LLN 2.07 L MEDENT ([facility]) Sbj7ket-Jfd 90 % [facility] ([facility]) Rli9cau-%Pred-Pre 116 % MED[facility] ([facility]) Ngs2hpk-Fxn 100 % [facility] ([facility]) Ooc0hyv-Gecc 96 % [facility] ([facility]) Tqk3dsy-EDG 67 % [facility] ([facility]) Iov1pnw-%Pred-Pre 104 % [facility] ([facility]) FEFMax-Pre 5.59 L/E/sec MEDENT ([facility]) FEFMax-Pred 5.55 L/E/sec MEDENT ([facility]) FEFMax-%Pred-Pre 100 L/E/sec MEDENT ([facility]) Uje4785-Huu 2.81 L/E/sec MEDENT ([facility]) FEFMax-LLN 3.99 L/E/sec MEDENT ([facility]) Aix7718-Nnps 1.96 L/E/sec MEDENT ([facility]) Tvu3768-%Pred-Pre 143 L/E/sec MEDENT ([facility]) ExpTime-Pre 6.33 sec MEDENT ([facility]) Opr1826-RAL 0.83 L/E/sec MEDENT ([facility]) Klt0ibj1-Liev 80 % MED[facility] ([facility]) Lsg8olu0-DTQ 71 % [facility] ([facility]) Fok9crw9-Lzb 90 % [facility] ([facility]) Rub1igm4-%Pred-Pre 112 % MEDENT ([facility], ) ID Date Data Source [id number] 01/07/2020 11:37:00 [place] [address] OPERATIVE SUMMARYNAME: LEELEE CONTRERAS DATE OF : 1955TTENDING PHYS: Ann Espinoza MD DATE: 01/02/20 MR#: [id number] OF PROCEDURE: 01/02/2020PREOPERATIVE DIAGNOSIS: Cataract, right eye.POSTOPERATIVE [...] bag. Phacoemulsification was then done in a rjctgo-utr-qnuvgkj method within the capsular bag. Excess cortical [...] instructions were given out in detail. [address] [place] [address] OPERATIVE SUMMARYNAME: LEELEE CONTRERAS DATE OF : 1955TTENDING PHYS: Ann Espinoza MD DATE: 01/02/20 MR#: [id number]: Ann Espinoza MD 01/07/20 11:14DT: PALLAVI 01/07/20 11:35DS: Ann Espinoza MD 01/09/20 15:55 2 Name Value Range Interpretation Code Description Data Sena rce(s) Supporting Document(s) ID Date Data Source [id number] 01/04/2020 01:38:00 [place] [address] OPERATIVE SUMMARYNAME: LEELEE CONTRERAS DATE OF : 1955TTENDING PHYS: Ann Espinoza MD DATE: 12/26/19 MR#: [id number] OF PROCEDURE: 12/26/2019PREOPERATIVE DIAGNOSIS: Cataract, left eye.POSTOPERATIVE [...] bag. Phacoemulsification was then done in a wxxakq-jgp-umdacvk method within the capsular bag. Excess cortical [...] 13:37DS: Ann Espinoza MD 01/09/20 15:55 [address] [place] [address] OPE RATIVE SUMMARYNAME: LEELEE CONTRERAS DATE OF : 1955TTENDING PHYS: Ann Espinoza MD DATE: 12/26/19 MR#: [id number] Name Value Range Interpretation Code Description Data Sena rce(s) Supporting Document(s) ID Date Data Source [id number] 12/28/2019 06:59:00 AM EDT [facility] Name Value Range Interpretation Code Description Data Sena rce(s) Supporting Document(s) SARS-CoV-2 (COVID19) [facility] This lab [facility] by [facility] and reported by [facility]. ID Date Data Source [id number] 12/21/2019 07:00:00 AM EDT [facility] Name Value Range Interpretation Code Description Data Sena rce(s) Supporting Document(s) SARS-CoV-2 (COVID19) [facility] This lab was ordered by [facility] and reported by [facility]. ID Date Data Source [id number] 12/20/2019 12:00:00 AM EDT [facility] Qian CASTANEDA Patient Name: BEN MCKOY [id number] [facility] Date of : 1955[place] [address] Date of Exam: 12/20/2019#: Fax: [phone] EXAM: CT LOWER EXTREMITY W/O [...] Consider followup MRIfor further evaluation.Accredited by the [employer] in [place].Kingsley Javier, MDDJRusty/slmTcarlitos you for referring BEN MCKOY to our office. Electronically Signed - KINGSLEY JAVIER MD 12/21/19 7:57 Name Value Range Interpretation Code Description Data Sena rce(s) Supporting Document(s) Procedure Social History Code Duration Value Status Description Data Source(s ) Smoking 01/29/2021 12:00:00 AM EDT Patient has never smoked co mpleted Patient has never smoked MED[facility] ([facility], ) Smoking 08/13/2020 12:00:00 AM EDT Patient has never smoked co mpleted Patient has never smoked [facility] ([facility]) Vital Signs ID Date Data Source UNK Name Value Range Interpretation Code Description Data Source(s) Body weight 199.00 [lb_av] 199.00 [lb_av] MEDEN T ([facility], ) Body weight 90.266 kg 90.266 [facility] [place] body weight 105 [lb_av] 105 [lb_av] MEDEN T ([facility]) Systolic blood pressure 160 mm[Hg] 160 mm[Hg] M EDENT ([facility]) Rechecked 138/86 Diastolic blood pressure 90 mm[Hg] 90 mm[Hg] [facility] Rechecked 138/86 Heart rate 74 /min 74 /min [facility] ([facility]) Oxygen saturation in Arterial blood by Pulse oximetry 97 % 97 % [facility] ([facility]) Body height 61 [in_i] 61 [in_i] [facility] ([facility]) 5'1" Body mass index (BMI) [Ratio] 37.6 kg/m2 37.6 k g/m2 [facility] ([facility]) Body surface area Derived from formula 1.88 m2 1.88 m2 [facility] ([facility]) Systolic blood pressure 110 mm[Hg] 110 mm[Hg] M EDENT ([facility], ) Diastolic blood pressure 80 mm[Hg] 80 mm[Hg] [facility] ([facility]) Heart rate 80 /min 80 /min [facility] ([facility]) Respiratory rate 16 /min 16 /min [facility] ( [facility]) Body temperature 98.1 [degF] 98.1 [degF] [facility] ([facility]) Systolic blood pressure 132 mm[Hg] 132 mm[Hg] [facility] Diastolic blood pressure 84 mm[Hg] 84 mm[Hg] [facility] ([facility]) [place] body weight 100 [lb_av] 100 [lb_av] MEDEN T ([facility]) Body mass index (BMI) [Ratio] 42.8 kg/m2 42.8 k g/m2 [facility] ([facility]) Respiratory rate 16 /min 16 /min [facility] ( [facility]) Body height 58.0 [in_i] 58.0 [in_i] [facility] ([facility]) 4'10" Body weight 205.00 [lb_av] 205.00 [lb_av] MEDEN T ([facility]) Oxygen saturation in Arterial blood by Pulse oximetry 99 % 99 % [facility] ([facility]) Oxygen saturation in Arterial blood by Pulse oximetry 98 % 98 % [facility] ([facility]) Body height 61 [in_i] 61 [in_i] [facility] ([facility]) 5'1" Body temperature 97.3 [degF] 97.3 [degF] [facility] ([facility]) Body weight 206.00 [lb_av] 206.00 [lb_av] MED[facility] T ([facility]) Body surface area Derived from formula 1.91 m2 1.91 m2 [facility] ([facility]) Body weight 93.442 kg 93.442 kg [facility] ([facility]) Oxygen saturation in Arterial blood by Pulse oximetry 98 % 98 % [facility] ([facility]) Body temperature 97.3 [degF] 97.3 [degF] [facility] ([facility]) Body height 61 [in_i] 61 [in_i] [facility] ([facility]) 5'1" Body weight 206.00 [lb_av] 206.00 [lb_av] MEDEN T ([facility]) Systolic blood pressure 130 mm[Hg] 130 mm[Hg] [facility] Diastolic blood pressure 80 mm[Hg] 80 mm[Hg] [facility] ([facility]) Heart rate 65 /min 65 /min [facility] ([facility]) Body mass index (BMI) [Ratio] 38.9 kg/m2 38.9 k g/m2 [facility] ([facility]) [place] body weight 105 [lb_av] 105 [lb_av] MEDEN T ([facility]) Body mass index (BMI) [Ratio] 38.9 kg/m2 38.9 k g/m2 [facility] ([facility]) [place] body weight 105 [lb_av] 105 [lb_av] MEDEN T ([facility]) Body weight 93.442 kg 93.442 kg [facility] ([facility]) Body surface area Derived from formula 1.91 m2 1.91 m2 [facility] ([facility]) Body temperature 96.5 [degF] 96.5 [degF] [facility] ([facility]) Body height 59 [in_i] 59 [in_i] [facility] 4'11" Body weight 195.50 [lb_av] 195.50 [lb_av] MEDEN T ([facility]) Body mass index (BMI) [Ratio] 39.5 kg/m2 39.5 k g/m2 [facility] ([facility]) Body height 58.0 [in_i] 58.0 [in_i] [facility] ([facility]) 4'10" Diastolic blood pressure 80 mm[Hg] 80 mm[Hg] [facility] ([facility]) Oxygen saturation in Arterial blood by Pulse oximetry 98 % 98 % [facility] ([facility]) [place] body weight 100 [lb_av] 100 [lb_av] MEDEN T ([facility]) Body mass index (BMI) [Ratio] 40.2 kg/m2 40.2 k g/m2 [facility] ([facility]) Heart rate 72 /min 72 /min [facility] ([facility]) Systolic blood pressure 124 mm[Hg] 124 mm[Hg] M [facility] ([facility]) Body weight 192.38 [lb_av] 192.38 [lb_av] MEDEN T ([facility]) Respiratory rate 16 /min 16 /min [facility] Body temperature 97.1 [degF] 97.1 [degF] [facility] ([facility]) Body temperature 97.5 [degF] 97.5 [degF] [facility] Diastolic blood pressure 78 mm[Hg] 78 mm[Hg] [facility] ([facility], ) Heart rate 76 /min 76 /min [facility] ([facility], ) Systolic blood pressure 110 mm[Hg] 110 mm[Hg] [facility] ([facility], ) Respiratory rate 16 /min 16 /min [facility] ( [facility], ) Systolic blood pressure 120 mm[Hg] 120 mm[Hg] [facility] ([facility], ) Diastolic blood pressure 80 mm[Hg] 80 mm[Hg] [facility] ([facility], ) Heart rate 63 /min 63 /min [facility] ([facility], ) Oxygen saturation in Arterial blood by Pulse oximetry 99 % 99 % [facility] ([facility], ) Body temperature 97.3 [degF] 97.3 [degF] [facility] ([facility], ) Body height 61 [in_i] 61 [in_i] [facility] 5'1" Body weight 195.00 [lb_av] 195.00 [lb_av] MED[facility] T ([facility]) Body mass index (BMI) [Ratio] 36.8 kg/m2 36.8 k g/m2 [facility] ([facility]) [place] body weight 105 [lb_av] 105 [lb_av] MEDEN T ([facility]) Body weight 88.452 kg 88.452 kg [facility] ([facility]) Body surface area Derived from formula 1.87 m2 1.87 m2 [facility] Body temperature 97.6 [degF] 97.6 [degF] [facility] ([facility]) Body height 60 [in_i] 60 [in_i] [facility] 5'0" Body weight 180.00 [lb_av] 180.00 [lb_av] MEDEN T ([facility]) Body mass index (BMI) [Ratio] 35.1 kg/m2 35.1 k g/m2 [facility] ([facility]) Body weight 180.00 [lb_av] 180.00 [lb_av] MEDEN T ([facility]) Body height 61 [in_i] 61 [in_i] [facility] 5'1" Body mass index (BMI) [Ratio] 34.0 kg/m2 34.0 k g/m2 [facility] ([facility]) Systolic blood pressure 136 mm[Hg] 136 mm[Hg] [facility]) Diastolic blood pressure 82 mm[Hg] 82 mm[Hg] [facility]) Heart rate 73 /min 73 /min [facility] ([facility]) Oxygen saturation in Arterial blood by Pulse oximetry 99 % 99 % [facility] ([facility], [facility]) Body temperature 98.6 [degF] 98.6 [degF] [facility] ([facility], [facility]) ID Date Data Source [id number] 01/09/2020 04:00:00 PM EDT [facility] Name Value Range Interpretation Code Description Data Source(s) WEIGHT RECORDED 180.00 pounds 180.00 pounds [facility] Height 61 Inches 061 Inches [facility] ID Date Data Source [id number] 01/09/2020 03:58:29 PM EDT [facility] Name Value Range Interpretation Code Description Data Source(s) WEIGHT RECORDED 180.00 pounds 180.00 pounds [facility] Height 61 Inches 061 Inches [facility]
[2021-02-11] MEDS ORDERED: ACETAMINOPHEN 500 MG TAB PO ONE (12:50)
[2021-02-11 13:29] VITALS: BP 150/80
== END 2021-02-11 13:39 | disposition home or self-care (01) ==
LOC: M ED 10:27
DX: S82.64XA Nondisplaced fracture of lateral malleolus of right fibula, initial encounter for closed fracture (principal); W06.XXXA Fall from bed, initial encounter; Y92.003 Bedroom of unspecified non-institutional (private) residence as the place of occurrence of the external cause; Y93.9 Activity, unspecified; Y99.9 Unspecified external cause status; I10 Essential (primary) hypertension; K21.9 Gastro-esophageal reflux disease without esophagitis; F41.9 Anxiety disorder, unspecified; Z79.899 Other long term (current) drug therapy

== ENCOUNTER → 2021-06-15 | Outpatient (CLI) | payer MEDICARE, OTHER ==
[~2021-06-15] MED LIST changes: +ALPR1TAB3; +BACL10TA2; -FLUO10CA16 PO; +FLUO10CA18 PO; +MELO15TA28
== END ==
LOC: M RAD 08:57
PROVIDERS: ATTEND Nurse Practitioner Family
DX: M25.512 Pain in left shoulder (principal)

== ENCOUNTER → 2021-07-07 | Outpatient (CLI) | payer MEDICARE, OTHER | LOC: M RAD 13:12 | PROVIDERS: ATTEND Nurse Practitioner Family | DX: M25.512 Pain in left shoulder (principal) ==

== ENCOUNTER → 2021-12-13 | Outpatient (CLI) | payer MEDICARE, OTHER ==
[~2021-12-13] MED LIST changes: -ALPR1TAB3; +ALPR1TAB3 PO; +FLUO40CA PO; +GABA-283 PO; -MELO15TA28; +MELO15TA28 PO; +PRESCAP PO; +TIZA4CAP PO; +VITA100093 PO
== END ==
LOC: M LABSMTC 10:49
PROVIDERS: ATTEND Anesthesiology
DX: Z01.818 Encounter for other preprocedural examination (principal); Z11.52 Encounter for screening for COVID-19

== ENCOUNTER 2021-12-18 08:01 | Day surgery (SDC) | payer MEDICARE, OTHER ==
[~2021-12-18] VITALS: Ht 149.9 cm; Wt 79.8 kg
[~2021-12-18 08:01] MED LIST changes: +NS 1,000 ML IV ONE
[2021-12-18] MEDS ORDERED: LIDOCAINE 2% 100MG/5ML SDV (FOR ANES.) As Ordered ONE (09:39)
[2021-12-18] MEDS ORDERED: propofoL 200 MG/20 ML VIAL As Ordered ONE ×2 (09:39→09:46)
[2021-12-18 10:20] VITALS: BP 175/78
== END 2021-12-18 10:35 | disposition home or self-care (01) ==
LOC: M OPP 08:01
PROVIDERS: ATTEND Surgery
DX: C20 Malignant neoplasm of rectum (principal); K57.30 Diverticulosis of large intestine without perforation or abscess without bleeding; I10 Essential (primary) hypertension; F32.9 Major depressive disorder, single episode, unspecified; F41.9 Anxiety disorder, unspecified; J45.909 Unspecified asthma, uncomplicated; Z79.51 Long term (current) use of inhaled steroids; Z79.891 Long term (current) use of opiate analgesic; Z79.899 Other long term (current) drug therapy; Z88.8 Allergy status to other drugs, medicaments and biological substances; Z87.798 Personal history of other (corrected) congenital malformations

== ENCOUNTER → 2021-12-31 | Outpatient (CLI) | payer MEDICARE, OTHER ==
[~2021-12-31] MED LIST changes: -NS 1,000 ML IV ONE
[2021-12-31 10:59] LABS: HEMATOCRIT 38.6 % (36.0-47.0); HEMOGLOBIN 12.2 g/dl (12.0-15.5); MEAN CORPUSCULAR HEMOGLOBIN 29.3 pg (27.0-33.0); MEAN CORPUSCULAR HGB CONC 31.6 g/dl (32.0-36.5); MEAN CORPUSCULAR VOLUME 92.8 fl (80.0-96.0); PLATELET COUNT, AUTOMATED 202 10^3/uL (150-450); RED BLOOD COUNT 4.16 10^6/uL (4.00-5.40)
[2021-12-31 11:38] LABS: BLOOD UREA NITROGEN 8 MG/DL (7-18); CALCIUM LEVEL 8.9 MG/DL (8.8-10.2); CARBON DIOXIDE LEVEL 27 MEQ/L (21-32); CHLORIDE LEVEL 107 MEQ/L (98-107); CREATININE FOR GFR 0.74 MG/DL (0.55-1.30); GLOMERULAR FILTRATION RATE > 60.0 (>45); GLUCOSE, FASTING 129 MG/DL (70-100); POTASSIUM SERUM 4.6 MEQ/L (3.5-5.1); SODIUM LEVEL 139 MEQ/L (136-145)
== END ==
LOC: M LAB 10:07
PROVIDERS: ATTEND Surgery
DX: C20 Malignant neoplasm of rectum (principal)

== ENCOUNTER → 2022-01-08 | Outpatient (CLI) | payer MEDICARE, OTHER ==
[~2022-01-08] MED LIST changes: +GASTROGRAFIN SOLUTION 30ML (Q9963) As Ordered ONE; +ISOVUE-370 76% 100ML VIAL As Ordered ONE
== END ==
LOC: M RAD 07:57
PROVIDERS: ATTEND Surgery
DX: C20 Malignant neoplasm of rectum (principal)
CPT/HCPCS: 71260; 74178; Q9963; Q9967

== ENCOUNTER → 2022-02-10 | Outpatient (CLI) | payer MEDICARE, OTHER ==
[~2022-02-10] MED LIST changes: -GASTROGRAFIN SOLUTION 30ML (Q9963) As Ordered ONE; -ISOVUE-370 76% 100ML VIAL As Ordered ONE
== END ==
LOC: M ONCR 14:29
PROVIDERS: ATTEND General Practice
DX: C20 Malignant neoplasm of rectum (principal); J45.909 Unspecified asthma, uncomplicated; H40.9 Unspecified glaucoma; F32.A Depression, unspecified; F41.9 Anxiety disorder, unspecified; Q28.3 Other malformations of cerebral vessels; Z80.1 Family history of malignant neoplasm of trachea, bronchus and lung; Z88.8 Allergy status to other drugs, medicaments and biological substances; Z79.899 Other long term (current) drug therapy; Z79.51 Long term (current) use of inhaled steroids

== ENCOUNTER → 2022-03-14 | Outpatient (CLI) | payer MEDICARE, OTHER ==
[~2022-03-14] MED LIST changes: +CAPE1TAB2 PO; +PROA1AER2 INH
== END ==
LOC: M LABSMTC 11:04
PROVIDERS: ATTEND Anesthesiology
DX: Z01.812 Encounter for preprocedural laboratory examination (principal); Z11.52 Encounter for screening for COVID-19

== ENCOUNTER 2022-03-16 09:15 | Day surgery (SDC) | payer MEDICARE, OTHER ==
[~2022-03-16] VITALS: Ht 152.4 cm; Wt 78.9 kg
[~2022-03-16 09:15] MED LIST changes: +propofoL 200 MG/20 ML VIAL As Ordered ONE
[2022-03-16] MEDS ORDERED: fentaNYL 100 MCG/2 ML INJECTION As Ordered ONE (10:34)
[2022-03-16 11:15] VITALS: BP 168/76
== END 2022-03-16 11:31 | disposition home or self-care (01) ==
LOC: M OPP 09:15
PROVIDERS: ATTEND Internal Medicine Gastroenterology
DX: K21.00 Gastro-esophageal reflux disease with esophagitis, without bleeding (principal); K31.89 Other diseases of stomach and duodenum; Z98.890 Other specified postprocedural states; R93.3 Abnormal findings on diagnostic imaging of other parts of digestive tract; M19.90 Unspecified osteoarthritis, unspecified site; F41.9 Anxiety disorder, unspecified; J45.909 Unspecified asthma, uncomplicated; Z85.048 Personal history of other malignant neoplasm of rectum, rectosigmoid junction, and anus; Z87.798 Personal history of other (corrected) congenital malformations; I10 Essential (primary) hypertension; Z79.1 Long term (current) use of non-steroidal anti-inflammatories (NSAID); Z79.51 Long term (current) use of inhaled steroids; Z79.891 Long term (current) use of opiate analgesic; Z79.899 Other long term (current) drug therapy; Z88.8 Allergy status to other drugs, medicaments and biological substances
CPT/HCPCS: 43239; 88305; J3010

== ENCOUNTER 2022-03-17 13:08 | Outpatient (RCR) | payer MEDICARE, OTHER ==
[~2022-03-17 13:08] MED LIST changes: -propofoL 200 MG/20 ML VIAL As Ordered ONE
[2022-03-23] MEDS ORDERED: SUCR1ORA2 (08:21)
[2022-03-23] MEDS ORDERED: PANT40TA29 (08:21)
== END 2022-03-17 23:59 | disposition home or self-care (01) ==
LOC: M ONCR 23:59
PROVIDERS: ATTEND General Practice
DX: C20 Malignant neoplasm of rectum (principal)

== ENCOUNTER 2022-04-16 13:01 | Outpatient (RCR) | payer MEDICARE, OTHER ==
[~2022-04-16 13:01] MED LIST changes: +LOPE-39 PO; +ONDA-83 PO; +PANT40TA29; +POTA8CAP10 PO; +PROC5TAB57 PO; +SUCR1ORA2
[2022-04-20] MEDS ORDERED: CAPE1TAB2 PO (15:47)
[2022-04-20] MEDS ORDERED: FOLI800C PO (17:33)
[2022-04-21] MEDS ORDERED: FOLI800C PO ×2 (13:18→15:41)
[2022-04-22] MEDS ORDERED: FOLI800C PO (12:58)
== END 2022-04-17 ==
LOC: M ONCR 13:01
PROVIDERS: ATTEND General Practice
DX: C20 Malignant neoplasm of rectum (principal)

== ENCOUNTER 2022-04-28 13:02 | Outpatient (RCR) | payer MEDICARE, OTHER ==
[~2022-04-28 13:02] MED LIST changes: +FOLI800C PO; +LOMO2.5T PO
[2022-05-11] MEDS ORDERED: FLUO-96 PO (19:17)
[2022-05-16] MEDS ORDERED: ALPR1TAB3 PO (10:22)
[2022-05-16] MEDS ORDERED: BENZ-18 PO (10:22)
[2022-05-16] MEDS ORDERED: MECL1TAB31 PO (10:22)
[2022-05-16] MEDS ORDERED: DELS30LI8 PO (10:22)
[2022-05-21] MEDS ORDERED: POTA10CA33 PO (10:54)
[2022-05-21] MEDS ORDERED: CALTTAB6 PO (10:55)
[2022-05-21] MEDS ORDERED: EQL50TAB2 PO (10:55)
== END 2022-05-18 ==
LOC: M ONCR 13:02
PROVIDERS: ATTEND General Practice
DX: C20 Malignant neoplasm of rectum (principal)

== ENCOUNTER 2022-05-11 09:55 | Inpatient (IN) | payer MEDICARE, OTHER ==
[~2022-05-11] VITALS: Ht 149.9 cm; Wt 73.0 kg
[2022-05-11] MEDS ORDERED: NS 1,000 ML IV ONE (11:30)
[2022-05-11 12:09] LABS: BASO # 0.1 10^3/uL (0.0-0.2); BASO % 0.8 % (0.0-1.0); EOS # 0.2 10^3/uL (0.0-0.5); EOS % 2.5 % (0.0-3.0); HEMATOCRIT 33.9 % (36.0-47.0); HEMOGLOBIN 11.1 g/dl (12.0-15.5); LYMPH # 0.6 10^3/uL (1.5-5.0); LYMPH % 10.4 % (24.0-44.0); MEAN CORPUSCULAR HEMOGLOBIN 31.2 pg (27.0-33.0); MEAN CORPUSCULAR HGB CONC 32.7 g/dl (32.0-36.5); MEAN CORPUSCULAR VOLUME 95.2 fl (80.0-96.0); MONO # 0.8 10^3/uL (0.0-0.8); MONO % 12.5 % (2.0-8.0); NEUTROPHILS # 4.4 10^3/uL (1.5-8.5); NEUTROPHILS % 73.3 % (36.0-66.0); PLATELET COUNT, AUTOMATED 249 10^3/uL (150-450); RED BLOOD COUNT 3.56 10^6/uL (4.00-5.40); WHITE BLOOD COUNT 6.1 10^3/uL (4.0-10.0)
[2022-05-11 12:20] LABS: INR 1.26; PARTIAL THROMBOPLASTIN TIME 23.2 SECONDS (24.8-34.2); PROTHROMBIN TIME 16.1 SECONDS (12.5-14.5)
[2022-05-11 12:38] LABS: CK-MB VALUE MASS < 1.0 NG/ML (<3.6)
[2022-05-11 12:39] LABS: LIPASE 32 U/L (12-53); MAGNESIUM LEVEL 2.1 MG/DL (1.8-2.4); PHENYTOIN (DILANTIN) 37.1 UG/ML (10.0-20.0)
[2022-05-11 12:40] LABS: BILIRUBIN,DIRECT 0.4 MG/DL (<0.4)
[2022-05-11 12:41] LABS: ALKALINE PHOSPHATASE 143 U/L (46-116); ALT/SGPT 18 U/L (7.0-40); AST/SGOT 32 U/L (<34); BILIRUBIN,TOTAL 0.9 MG/DL (0.3-1.2); BLOOD UREA NITROGEN 9 MG/DL (9-23); CALCIUM LEVEL 8.4 MG/DL (8.3-10.6); CARBON DIOXIDE LEVEL 29 MMOL/L (20-31); CHLORIDE LEVEL 100 MMOL/L (98-107); CREATININE FOR GFR 0.66 MG/DL (0.55-1.30); GLOMERULAR FILTRATION RATE > 60.0 (>45); GLUCOSE, FASTING 132 MG/DL (74-106); POTASSIUM SERUM 3.9 MMOL/L (3.5-5.1); SODIUM LEVEL 138 MMOL/L (136-145)
[2022-05-11 12:43] LABS: THYROID STIMULATING HORMONE 1.569 uIU/ML (0.55-4.78)
[2022-05-11 12:48] LABS: CPK CREATINE PHOSPHOKINASE 57 U/L (34-145); MB/CK RELATIVE INDEX 1.75 (< OR =4)
[2022-05-11] MEDS ORDERED: ONDANSETRON 4MG 2ML VIAL IV ONE (13:20)
[2022-05-11] MEDS ORDERED: MECLIZINE 12.5 MG TAB PO ONE (13:20)
[2022-05-11] MEDS ORDERED: NS 500 ML IV ONE (14:00)
[2022-05-11] MEDS ORDERED: PROMETHAZINE 25MG/ML 1ML VIAL IV ONE (14:00)
[2022-05-11] MEDS: NS 1,000 ML IV SCH (18:57)
[2022-05-11] MEDS ORDERED: FLUO-96 PO (19:17)
[2022-05-11] MEDS ORDERED: HOME MED LIST COMPLETE! XX SCH (19:20)
[2022-05-11] MEDS: SYMBICORT 160/4.5MCG INHALER 6GM INH SCH (20:27)
[2022-05-11 21:00] VITALS: BP 165/82
[2022-05-11] MEDS: PHENYTOIN ER 100 MG CAP PO SCH (21:00)
[2022-05-11] MEDS: GABAPENTIN 100 MG CAP PO SCH ×2 (21:00→21:39)
[2022-05-11] MEDS: ONDANSETRON 4MG 2ML VIAL IV PRN (21:40)
[2022-05-11] MEDS ORDERED: hydrOXYzine 50 MG TAB PO PRN (22:25)
[2022-05-11] MEDS: ALPRAZolam 0.5 MG TAB PO PRN (23:14)
[2022-05-11] MEDS: FLUoxetine 10 MG CAP PO SCH (23:14)
[2022-05-12] MEDS: NS 1,000 ML IV SCH (04:43)
[2022-05-12 05:09] VITALS: BP 127/59
[2022-05-12 05:56] LABS: BASO % 0.7 % (0.0-1.0); EOS # 0.2 10^3/uL (0.0-0.5); EOS % 5.2 % (0.0-3.0); HEMATOCRIT 29.4 % (36.0-47.0); HEMOGLOBIN 9.7 g/dl (12.0-15.5); LYMPH # 0.6 10^3/uL (1.5-5.0); LYMPH % 13.5 % (24.0-44.0); MEAN CORPUSCULAR HEMOGLOBIN 32.3 pg (27.0-33.0); MONO # 0.5 10^3/uL (0.0-0.8); MONO % 11.1 % (2.0-8.0); NEUTROPHILS # 2.9 10^3/uL (1.5-8.5); NEUTROPHILS % 69.3 % (36.0-66.0); PLATELET COUNT, AUTOMATED 190 10^3/uL (150-450); WHITE BLOOD COUNT 4.2 10^3/uL (4.0-10.0)
[2022-05-12 06:08] LABS: BLOOD UREA NITROGEN 7 MG/DL (9-23); CALCIUM LEVEL 7.4 MG/DL (8.3-10.6); CARBON DIOXIDE LEVEL 27 MMOL/L (20-31); CHLORIDE LEVEL 108 MMOL/L (98-107); CREATININE FOR GFR 0.67 MG/DL (0.55-1.30); GLOMERULAR FILTRATION RATE > 60.0 (>45); GLUCOSE, FASTING 99 MG/DL (74-106); POTASSIUM SERUM 3.5 MMOL/L (3.5-5.1); SODIUM LEVEL 140 MMOL/L (136-145)
[2022-05-12] MEDS: SYMBICORT 160/4.5MCG INHALER 6GM INH SCH ×2 (08:12→21:07)
[2022-05-12] MEDS: ONDANSETRON 4MG 2ML VIAL IV PRN (09:09)
[2022-05-12 13:38] VITALS: BP 139/79
[2022-05-12 13:54] VITALS: BP_SYST 116; BP_SYST 139; BP_SYST 172; BP_DIAS 77; BP_DIAS 79; BP_DIAS 91
[2022-05-12] MEDS ORDERED: IBUPROFEN 800 MG TAB PO ONE (17:00)
[2022-05-12] MEDS: FLUoxetine 10 MG CAP PO SCH (20:09)
[2022-05-12] MEDS: ALPRAZolam 0.5 MG TAB PO PRN (20:12)
[2022-05-12 20:58] VITALS: BP 131/64
[2022-05-12] MEDS: GABAPENTIN 100 MG CAP PO PRN (23:05)
[2022-05-12] MEDS ORDERED: IBUPROFEN 400MG TAB PO ONE (23:15)
[2022-05-13 06:00] VITALS: BP 128/63
[2022-05-13] MEDS: SYMBICORT 160/4.5MCG INHALER 6GM INH SCH ×2 (07:56→20:02)
[2022-05-13] MEDS: MECLIZINE 12.5 MG TAB PO SCH ×3 (09:15→22:17)
[2022-05-13] MEDS: PHENYTOIN ER 100 MG CAP PO SCH ×2 (09:25→20:10)
[2022-05-13] MEDS: ALPRAZolam 0.5 MG TAB PO PRN ×2 (09:25→20:10)
[2022-05-13] MEDS ORDERED: LORATADINE 10 MG TAB PO ONE (10:30)
[2022-05-13 12:34] LABS: MAGNESIUM LEVEL 1.9 MG/DL (1.8-2.4)
[2022-05-13 12:35] LABS: BLOOD UREA NITROGEN 9 MG/DL (9-23); CALCIUM LEVEL 7.9 MG/DL (8.3-10.6); CARBON DIOXIDE LEVEL 25 MMOL/L (20-31); CHLORIDE LEVEL 110 MMOL/L (98-107); CREATININE FOR GFR 0.64 MG/DL (0.55-1.30); GLOMERULAR FILTRATION RATE > 60.0 (>45); GLUCOSE, FASTING 179 MG/DL (74-106); POTASSIUM SERUM 3.6 MMOL/L (3.5-5.1); SODIUM LEVEL 143 MMOL/L (136-145)
[2022-05-13 12:43] LABS: BASO % 0.7 % (0.0-1.0); EOS # 0.5 10^3/uL (0.0-0.5); EOS % 11.7 % (0.0-3.0); HEMATOCRIT 31.1 % (36.0-47.0); LYMPH # 0.6 10^3/uL (1.5-5.0); LYMPH % 13.9 % (24.0-44.0); MEAN CORPUSCULAR HEMOGLOBIN 31.5 pg (27.0-33.0); MEAN CORPUSCULAR HGB CONC 32.2 g/dl (32.0-36.5); MEAN CORPUSCULAR VOLUME 98.1 fl (80.0-96.0); MONO # 0.4 10^3/uL (0.0-0.8); MONO % 9.1 % (2.0-8.0); NEUTROPHILS % 64.2 % (36.0-66.0); PLATELET COUNT, AUTOMATED 197 10^3/uL (150-450); RED BLOOD COUNT 3.17 10^6/uL (4.00-5.40); WHITE BLOOD COUNT 4.6 10^3/uL (4.0-10.0)
[2022-05-13] MEDS: LOPERAMIDE 2 MG CAPLET PO PRN ×4 (13:22→23:03)
[2022-05-13] MEDS: BENZONATATE 100MG CAPSULE PO SCH ×2 (13:22→22:17)
[2022-05-13 14:00] VITALS: BP 135/68
[2022-05-13] MEDS ORDERED: NS 1,000 ML IV ONE (19:15)
[2022-05-13] MEDS: FLUoxetine 10 MG CAP PO SCH (20:09)
[2022-05-13 22:00] VITALS: BP 133/69
[2022-05-13] MEDS ORDERED: PINK BISMUTH SUSP 524MG/30ML ORAL SYRINGE PO ONE (23:35)
[2022-05-14] MEDS: MECLIZINE 12.5 MG TAB PO SCH ×3 (05:26→21:57)
[2022-05-14] MEDS: BENZONATATE 100MG CAPSULE PO SCH ×3 (05:26→21:53)
[2022-05-14] MEDS: GABAPENTIN 100 MG CAP PO PRN ×2 (05:26→21:54)
[2022-05-14 06:00] VITALS: BP 128/64
[2022-05-14 06:21] LABS: BASO # 0.1 10^3/uL (0.0-0.2); BASO % 0.8 % (0.0-1.0); EOS # 0.7 10^3/uL (0.0-0.5); EOS % 11.1 % (0.0-3.0); HEMATOCRIT 28.6 % (36.0-47.0); HEMOGLOBIN 9.1 g/dl (12.0-15.5); LYMPH # 0.5 10^3/uL (1.5-5.0); LYMPH % 8.4 % (24.0-44.0); MEAN CORPUSCULAR HEMOGLOBIN 31.6 pg (27.0-33.0); MEAN CORPUSCULAR HGB CONC 31.8 g/dl (32.0-36.5); MEAN CORPUSCULAR VOLUME 99.3 fl (80.0-96.0); MONO # 0.6 10^3/uL (0.0-0.8); MONO % 8.8 % (2.0-8.0); NEUTROPHILS # 4.6 10^3/uL (1.5-8.5); NEUTROPHILS % 70.6 % (36.0-66.0); PLATELET COUNT, AUTOMATED 153 10^3/uL (150-450); RED BLOOD COUNT 2.88 10^6/uL (4.00-5.40); WHITE BLOOD COUNT 6.5 10^3/uL (4.0-10.0)
[2022-05-14 06:55] LABS: BLOOD UREA NITROGEN 12 MG/DL (9-23); CALCIUM LEVEL 7.4 MG/DL (8.3-10.6); CARBON DIOXIDE LEVEL 23 MMOL/L (20-31); CHLORIDE LEVEL 113 MMOL/L (98-107); CREATININE FOR GFR 0.55 MG/DL (0.55-1.30); GLOMERULAR FILTRATION RATE > 60.0 (>45); GLUCOSE, FASTING 78 MG/DL (74-106); POTASSIUM SERUM 3.7 MMOL/L (3.5-5.1); SODIUM LEVEL 145 MMOL/L (136-145)
[2022-05-14] MEDS: SYMBICORT 160/4.5MCG INHALER 6GM INH SCH ×2 (07:27→19:51)
[2022-05-14] MEDS: PHENYTOIN ER 100 MG CAP PO SCH ×2 (08:28→21:53)
[2022-05-14] MEDS: ALPRAZolam 0.5 MG TAB PO PRN ×2 (08:28→21:55)
[2022-05-14] MEDS: DEXTROMETHORPHAN 60MG/10ML SUSP 90ML BTL(DELSYM) PO SCH ×2 (11:49→21:57)
[2022-05-14] MEDS: LORATADINE 10 MG TAB PO SCH (11:49)
[2022-05-14] MEDS: LOPERAMIDE 2 MG CAPLET PO SCH ×2 (11:49→17:55)
[2022-05-14 14:00] VITALS: BP 120/60
[2022-05-14] MEDS: ACETAMINOPHEN TAB 650MG DOSE (2X325MG) PO PRN (17:58)
[2022-05-14 20:30] VITALS: BP 119/60
[2022-05-14] MEDS: FLUoxetine 10 MG CAP PO SCH (21:53)
[2022-05-14] MEDS: LOPERAMIDE 2 MG CAPLET PO PRN (21:56)
[2022-05-15 05:00] VITALS: BP 125/63
[2022-05-15] MEDS: BENZONATATE 100MG CAPSULE PO SCH ×3 (05:07→21:00)
[2022-05-15] MEDS: ALPRAZolam 0.5 MG TAB PO PRN ×2 (05:07→18:02)
[2022-05-15] MEDS: MECLIZINE 12.5 MG TAB PO SCH (05:07)
[2022-05-15 06:47] LABS: BASO % 0.9 % (0.0-1.0); EOS # 0.5 10^3/uL (0.0-0.5); EOS % 11.7 % (0.0-3.0); HEMATOCRIT 27.6 % (36.0-47.0); HEMOGLOBIN 8.8 g/dl (12.0-15.5); LYMPH # 0.5 10^3/uL (1.5-5.0); LYMPH % 11.7 % (24.0-44.0); MEAN CORPUSCULAR HEMOGLOBIN 31.8 pg (27.0-33.0); MEAN CORPUSCULAR HGB CONC 31.9 g/dl (32.0-36.5); MEAN CORPUSCULAR VOLUME 99.6 fl (80.0-96.0); MONO # 0.4 10^3/uL (0.0-0.8); MONO % 9.4 % (2.0-8.0); NEUTROPHILS # 2.9 10^3/uL (1.5-8.5); NEUTROPHILS % 65.8 % (36.0-66.0); PLATELET COUNT, AUTOMATED 146 10^3/uL (150-450); RED BLOOD COUNT 2.77 10^6/uL (4.00-5.40); WHITE BLOOD COUNT 4.4 10^3/uL (4.0-10.0)
[2022-05-15] MEDS: ACETAMINOPHEN TAB 650MG DOSE (2X325MG) PO PRN (06:49)
[2022-05-15 07:09] LABS: BLOOD UREA NITROGEN 15 MG/DL (9-23); CALCIUM LEVEL 7.5 MG/DL (8.3-10.6); CARBON DIOXIDE LEVEL 24 MMOL/L (20-31); CHLORIDE LEVEL 112 MMOL/L (98-107); GLOMERULAR FILTRATION RATE > 60.0 (>45); GLUCOSE, FASTING 86 MG/DL (74-106); POTASSIUM SERUM 3.4 MMOL/L (3.5-5.1); SODIUM LEVEL 144 MMOL/L (136-145)
[2022-05-15] MEDS: SYMBICORT 160/4.5MCG INHALER 6GM INH SCH ×2 (07:43→19:22)
[2022-05-15] MEDS ORDERED: POTASSIUM CHLORIDE 10MEQ SR TABLET PO ONE (07:50)
[2022-05-15] MEDS ORDERED: CEPACOL LOZENGE PO PRN (09:05)
[2022-05-15] MEDS ORDERED: NS 1,000 ML IV ONE (09:05)
[2022-05-15] MEDS: PHENYTOIN ER 100 MG CAP PO SCH ×2 (09:22→20:57)
[2022-05-15] MEDS: LOPERAMIDE 2 MG CAPLET PO SCH ×3 (09:22→18:02)
[2022-05-15] MEDS: LORATADINE 10 MG TAB PO SCH (09:23)
[2022-05-15] MEDS: DEXTROMETHORPHAN 60MG/10ML SUSP 90ML BTL(DELSYM) PO SCH ×2 (09:25→20:57)
[2022-05-15] MEDS: MECLIZINE 12.5 MG TAB PO PRN (13:48)
[2022-05-15 14:00] VITALS: BP 123/61
[2022-05-15] MEDS: ALBUTEROL 90 MCG/ACT 8GM HFA INHALER INH PRN ×2 (14:04→19:41)
[2022-05-15] MEDS: GABAPENTIN 100 MG CAP PO PRN (20:57)
[2022-05-15] MEDS: FLUoxetine 10 MG CAP PO SCH (20:57)
[2022-05-15 21:10] VITALS: BP 119/68
[2022-05-16] MEDS: MECLIZINE 12.5 MG TAB PO PRN (00:07)
[2022-05-16] MEDS: ALPRAZolam 0.5 MG TAB PO PRN (00:07)
[2022-05-16] MEDS: ONDANSETRON 4MG 2ML VIAL IV PRN (00:12)
[2022-05-16] MEDS: ACETAMINOPHEN TAB 650MG DOSE (2X325MG) PO PRN (04:39)
[2022-05-16 04:40] VITALS: BP 120/60
[2022-05-16] MEDS: BENZONATATE 100MG CAPSULE PO SCH (05:26)
[2022-05-16 07:06] LABS: BASO % 0.5 % (0.0-1.0); EOS # 0.5 10^3/uL (0.0-0.5); EOS % 8.2 % (0.0-3.0); HEMATOCRIT 26.7 % (36.0-47.0); HEMOGLOBIN 8.7 g/dl (12.0-15.5); LYMPH # 0.5 10^3/uL (1.5-5.0); LYMPH % 8.9 % (24.0-44.0); MEAN CORPUSCULAR HGB CONC 32.6 g/dl (32.0-36.5); MEAN CORPUSCULAR VOLUME 98.2 fl (80.0-96.0); MONO # 0.6 10^3/uL (0.0-0.8); MONO % 9.2 % (2.0-8.0); NEUTROPHILS # 4.3 10^3/uL (1.5-8.5); NEUTROPHILS % 72.5 % (36.0-66.0); PLATELET COUNT, AUTOMATED 122 10^3/uL (150-450); RED BLOOD COUNT 2.72 10^6/uL (4.00-5.40)
[2022-05-16 07:38] LABS: BLOOD UREA NITROGEN 11 MG/DL (9-23); CALCIUM LEVEL 7.8 MG/DL (8.3-10.6); CARBON DIOXIDE LEVEL 24 MMOL/L (20-31); CHLORIDE LEVEL 112 MMOL/L (98-107); CREATININE FOR GFR 0.56 MG/DL (0.55-1.30); GLOMERULAR FILTRATION RATE > 60.0 (>45); GLUCOSE, FASTING 86 MG/DL (74-106); POTASSIUM SERUM 3.9 MMOL/L (3.5-5.1); SODIUM LEVEL 143 MMOL/L (136-145)
[2022-05-16] MEDS: SYMBICORT 160/4.5MCG INHALER 6GM INH SCH (08:03)
[2022-05-16] MEDS: LORATADINE 10 MG TAB PO SCH (08:22)
[2022-05-16] MEDS: PHENYTOIN ER 100 MG CAP PO SCH (08:23)
[2022-05-16] MEDS: LOPERAMIDE 2 MG CAPLET PO SCH ×2 (08:23→12:05)
[2022-05-16] MEDS ORDERED: NS 1,000 ML IV ONE (08:30)
[2022-05-16] MEDS: DEXTROMETHORPHAN 60MG/10ML SUSP 90ML BTL(DELSYM) PO SCH (09:13)
[2022-05-16] MEDS ORDERED: MECL1TAB31 PO (10:22)
[2022-05-16] MEDS ORDERED: BENZ-18 PO (10:22)
[2022-05-16] MEDS ORDERED: ALPR1TAB3 PO (10:22)
[2022-05-16] MEDS ORDERED: DELS30LI8 PO (10:22)
[2022-05-18 10:08] LABS: PHENYTOIN,FREE 4.4 ug/mL (1.0-2.0); PHENYTOIN,TOTAL 31.4 ug/mL (10.0-20.0)
== END 2022-05-16 13:59 | disposition home or self-care (01) | DRG 149 ==
LOC: M ED 09:55 → M ED INP 17:43 → ENRESERV 20:20 → M MSPAV 20:58
PROVIDERS: ADMIT Internal Medicine Nephrology; ATTEND Internal Medicine Nephrology
DX: R42 Dizziness and giddiness (principal); C20 Malignant neoplasm of rectum; K52.1 Toxic gastroenteritis and colitis; R53.1 Weakness; E86.0 Dehydration; F32.A Depression, unspecified; F41.9 Anxiety disorder, unspecified; H40.9 Unspecified glaucoma; R63.4 Abnormal weight loss; J06.9 Acute upper respiratory infection, unspecified; R11.2 Nausea with vomiting, unspecified; J45.909 Unspecified asthma, uncomplicated; D64.81 Anemia due to antineoplastic chemotherapy; T45.1X5A Adverse effect of antineoplastic and immunosuppressive drugs, initial encounter; T42.4X5A Adverse effect of benzodiazepines, initial encounter; H83.09 Labyrinthitis, unspecified ear; B97.4 Respiratory syncytial virus as the cause of diseases classified elsewhere; M25.512 Pain in left shoulder; M54.2 Cervicalgia; K21.9 Gastro-esophageal reflux disease without esophagitis; Z79.899 Other long term (current) drug therapy; Z88.8 Allergy status to other drugs, medicaments and biological substances; Z92.21 Personal history of antineoplastic chemotherapy; Z92.3 Personal history of irradiation

== ENCOUNTER → 2022-05-21 | Outpatient (CLI) | payer MEDICARE, OTHER ==
[~2022-05-21] MED LIST changes: +BENZ-18 PO; +CALTTAB6 PO; +DELS30LI8 PO; +EQL50TAB2 PO; +FLUO-96 PO; +MECL1TAB31 PO; +POTA10CA33 PO
== END ==
LOC: M ONCR 10:58
PROVIDERS: ATTEND General Practice
DX: C20 Malignant neoplasm of rectum (principal)

== ENCOUNTER → 2022-06-04 | Outpatient (CLI) | payer MEDICARE, OTHER ==
[2022-06-04 12:37] LABS: BASO # 0.1 10^3/uL (0.0-0.2); BASO % 1.2 % (0.0-1.0); EOS # 0.2 10^3/uL (0.0-0.5); EOS % 3.6 % (0.0-3.0); HEMATOCRIT 38.1 % (36.0-47.0); LYMPH # 0.6 10^3/uL (1.5-5.0); LYMPH % 12.7 % (24.0-44.0); MEAN CORPUSCULAR HGB CONC 31.5 g/dl (32.0-36.5); MEAN CORPUSCULAR VOLUME 101.6 fl (80.0-96.0); MONO # 0.4 10^3/uL (0.0-0.8); MONO % 7.4 % (2.0-8.0); NEUTROPHILS # 3.7 10^3/uL (1.5-8.5); NEUTROPHILS % 74.7 % (36.0-66.0); PLATELET COUNT, AUTOMATED 376 10^3/uL (150-450); RED BLOOD COUNT 3.75 10^6/uL (4.00-5.40)
[2022-06-04 13:06] LABS: ALKALINE PHOSPHATASE 154 U/L (46-116); ALT/SGPT 15 U/L (7.0-40); AST/SGOT 22 U/L (<34); BILIRUBIN,TOTAL 0.2 MG/DL (0.3-1.2); BLOOD UREA NITROGEN 12 MG/DL (9-23); CARBON DIOXIDE LEVEL 28 MMOL/L (20-31); CHLORIDE LEVEL 106 MMOL/L (98-107); CREATININE FOR GFR 0.71 MG/DL (0.55-1.30); FREE T4 0.76 NG/DL (0.89-1.76); GLOMERULAR FILTRATION RATE > 60.0 (>45); GLUCOSE, FASTING 132 MG/DL (74-106); SODIUM LEVEL 141 MMOL/L (136-145); TOTAL PROTEIN 6.7 G/DL (5.7-8.2)
[2022-06-04 13:36] LABS: ERYTHROCYTE SEDIMENTATION RATE 59 mm/hr (0-30)
== END ==
LOC: M RAD 11:55
PROVIDERS: ATTEND Nurse Practitioner Adult Health
DX: J45.40 Moderate persistent asthma, uncomplicated (principal); E07.9 Disorder of thyroid, unspecified

== ENCOUNTER → 2022-07-07 | Outpatient (CLI) | payer MEDICARE, OTHER | LOC: M PLARAD 11:01 | PROVIDERS: ATTEND Internal Medicine Hematology & Oncology | DX: C20 Malignant neoplasm of rectum (principal) | CPT/HCPCS: 78815; A9552 ==

== ENCOUNTER → 2022-07-22 | Outpatient (CLI) | payer MEDICARE, OTHER ==
[~2022-07-22] MED LIST changes: +LIDOCAINE 1% MDV 20ML VIAL As Ordered ONE; +MIDAZOLAM INJ 2MG/2ML VIAL As Ordered ONE; +NS 1,000 ML IV SCH; +ceFAZolin 2 GM/D5W 50 ML IV BAG As Ordered ONE; +ceFAZolin SOD 2 GM in IV 1 EA IV ONE; +diphenhydrAMINE 50MG/ML VIAL As Ordered ONE; +fentaNYL 100 MCG/2 ML INJECTION As Ordered ONE
[2022-07-22 12:10] VITALS: BP 145/62
== END ==
LOC: M IRPRO 07:27
PROVIDERS: ATTEND Specialist
DX: C20 Malignant neoplasm of rectum (principal)
CPT/HCPCS: 36561; 99152; 99153; C1769; C1788; C1894; J0690; J1200; J2250; J3010

== ENCOUNTER → 2022-08-17 | Outpatient (POV) | payer MEDICARE, OTHER ==
[~2022-08-17] VITALS: Ht 152.4 cm; Wt 72.7 kg
[~2022-08-17] MED LIST changes: +AMIT10TA7; +LIDO1CRE42 TOP; -LIDOCAINE 1% MDV 20ML VIAL As Ordered ONE; -MIDAZOLAM INJ 2MG/2ML VIAL As Ordered ONE; -NS 1,000 ML IV SCH; +ONDA8TAB8 PO; +PROC10TA5 PO; -ceFAZolin 2 GM/D5W 50 ML IV BAG As Ordered ONE; -ceFAZolin SOD 2 GM in IV 1 EA IV ONE; -diphenhydrAMINE 50MG/ML VIAL As Ordered ONE; -fentaNYL 100 MCG/2 ML INJECTION As Ordered ONE
[2022-08-17 13:10] VITALS: BP 160/86
== END ==
LOC: M IRPOV 12:42
PROVIDERS: ATTEND Radiology Diagnostic Radiology
DX: Z45.2 Encounter for adjustment and management of vascular access device (principal); Z88.8 Allergy status to other drugs, medicaments and biological substances

== ENCOUNTER → 2022-08-18 | Outpatient (CLI) | payer MEDICARE, OTHER | LOC: M ONCR 10:41 | PROVIDERS: ATTEND General Practice | DX: C20 Malignant neoplasm of rectum (principal); Z88.8 Allergy status to other drugs, medicaments and biological substances; Z79.899 Other long term (current) drug therapy; Z79.51 Long term (current) use of inhaled steroids; Z92.21 Personal history of antineoplastic chemotherapy; Z92.3 Personal history of irradiation ==

== ENCOUNTER → 2022-11-25 | Outpatient (CLI) | payer MEDICARE, OTHER ==
[~2022-11-25] MED LIST changes: -AMIT10TA7; +AMIT10TA7 PO; -GABA-283 PO; +GABA-284 PO; +GASTROGRAFIN SOLUTION 30ML As Ordered ONE; +ISOVUE-370 76% 100ML VIAL As Ordered ONE; -LIDO1CRE42 TOP; +LIDO30CR18 TOP; -POTA10CA33 PO; +POTA10CA60 PO
== END ==
LOC: M RAD 07:01
PROVIDERS: ATTEND Internal Medicine Medical Oncology
DX: C20 Malignant neoplasm of rectum (principal)
CPT/HCPCS: 74177; Q9963; Q9967

== ENCOUNTER 2022-12-06 15:02 | Emergency (ER) | payer MEDICARE, OTHER ==
[~2022-12-06] VITALS: Ht 152.4 cm; Wt 71.0 kg
[~2022-12-06 15:02] MED LIST changes: -GASTROGRAFIN SOLUTION 30ML As Ordered ONE; -ISOVUE-370 76% 100ML VIAL As Ordered ONE
[2022-12-06 20:22] VITALS: BP 154/80; TEMP 98; O2SAT 99
== END 2022-12-06 20:23 | disposition home or self-care (01) ==
LOC: M ED 15:02
DX: R22.0 Localized swelling, mass and lump, head (principal); J45.909 Unspecified asthma, uncomplicated; C20 Malignant neoplasm of rectum; Z79.899 Other long term (current) drug therapy; Z79.51 Long term (current) use of inhaled steroids

== ENCOUNTER → 2023-03-30 | Outpatient (CLI) | payer MEDICARE, OTHER ==
[~2023-03-30] MED LIST changes: +BACL10TA2 PO; +GASTROGRAFIN SOLUTION 30ML As Ordered ONE; +ISOVUE-370 76% 100ML VIAL As Ordered ONE; +MECL-209 PO; -MECL1TAB31 PO; +PREG25CA PO
== END ==
LOC: M RAD 11:48
PROVIDERS: ATTEND Nurse Practitioner
DX: C20 Malignant neoplasm of rectum (principal)
CPT/HCPCS: 71260; 74177; Q9963; Q9967

== ENCOUNTER → 2023-05-18 | Outpatient (CLI) | payer MEDICARE, OTHER ==
[~2023-05-18] MED LIST changes: -GASTROGRAFIN SOLUTION 30ML As Ordered ONE; -ISOVUE-370 76% 100ML VIAL As Ordered ONE
== END ==
LOC: M ONCR 11:02
PROVIDERS: ATTEND General Practice
DX: C20 Malignant neoplasm of rectum (principal); Z88.8 Allergy status to other drugs, medicaments and biological substances; Z91.048 Other nonmedicinal substance allergy status; Z79.51 Long term (current) use of inhaled steroids; Z79.899 Other long term (current) drug therapy; Z92.21 Personal history of antineoplastic chemotherapy; Z92.3 Personal history of irradiation

== ENCOUNTER 2023-08-23 16:59 | Emergency (ER) | payer MEDICARE, OTHER ==
[~2023-08-23] VITALS: Ht 152.4 cm; Wt 71.5 kg
[~2023-08-23 16:59] MED LIST changes: +FERR325T3 PO; +FLUO-290 PO; -FLUO10CA18 PO; -POTA10CA60 PO; +POTA10CA70 PO
[2023-08-23] MEDS ORDERED: RAME8TAB2 (17:13)
[2023-08-23] MEDS ORDERED: HYDR50TA70 (17:13)
[2023-08-23 18:17] LABS: BASO % 0.4 % (0.0-1.0); EOS # 0.1 10^3/uL (0.0-0.5); EOS % 1.7 % (0.0-3.0); HEMATOCRIT 34.4 % (36.0-47.0); HEMOGLOBIN 11.5 g/dl (12.0-15.5); LYMPH # 0.5 10^3/uL (1.5-5.0); LYMPH % 11.6 % (24.0-44.0); MEAN CORPUSCULAR HEMOGLOBIN 30.9 pg (27.0-33.0); MEAN CORPUSCULAR HGB CONC 33.4 g/dl (32.0-36.5); MEAN CORPUSCULAR VOLUME 92.5 fl (80.0-96.0); MONO # 0.4 10^3/uL (0.0-0.8); MONO % 9.2 % (2.0-8.0); NEUTROPHILS # 3.6 10^3/uL (1.5-8.5); NEUTROPHILS % 76.9 % (36.0-66.0); PLATELET COUNT, AUTOMATED 145 10^3/uL (150-450); RED BLOOD COUNT 3.72 10^6/uL (4.00-5.40); WHITE BLOOD COUNT 4.7 10^3/uL (4.0-10.0)
[2023-08-23 18:54] LABS: ALBUMIN 3.4 G/DL (3.2-5.2); ALKALINE PHOSPHATASE 189 U/L (46-116); ALT/SGPT 22 U/L (7.0-40); AST/SGOT 51 U/L (<34); BILIRUBIN,DIRECT < 0.1 MG/DL (<0.4); BILIRUBIN,TOTAL 0.3 MG/DL (0.3-1.2); BLOOD UREA NITROGEN 14 MG/DL (9-23); CALCIUM LEVEL 8.1 MG/DL (8.3-10.6); CARBON DIOXIDE LEVEL 23 MMOL/L (20-31); CHLORIDE LEVEL 107 MMOL/L (98-107); CK-MB VALUE MASS < 1.0 NG/ML (<3.6); CPK CREATINE PHOSPHOKINASE 76 U/L (34-145); CREATININE FOR GFR 0.71 MG/DL (0.55-1.30); GLOMERULAR FILTRATION RATE > 60.0 (>45); GLUCOSE, FASTING 94 MG/DL (74-106); MB/CK RELATIVE INDEX 1.31 (< OR =4); POTASSIUM SERUM 4.2 MMOL/L (3.5-5.1); SODIUM LEVEL 140 MMOL/L (136-145); THYROID STIMULATING HORMONE 6.224 uIU/ML (0.55-4.78); THYROXINE (T4) 5.3 UG/DL (4.5-10.9); TOTAL PROTEIN 7.1 G/DL (5.7-8.2)
[2023-08-23 20:49] LABS: C REACTIVE PROTEIN QUANTITATIV 1.1 MG/DL (<1.0); PHENYTOIN (DILANTIN) 11.4 UG/ML (10.0-20.0)
[2023-08-23 21:15] VITALS: BP 120/58
[2023-08-23 21:16] VITALS: TEMP 97.8; O2SAT 97
[2023-08-23 22:04] LABS: COMPLEMENT C4 16.5 MG/DL (12-36)
== END 2023-08-23 21:33 | disposition home or self-care (01) ==
LOC: M ED 16:59
DX: R22.0 Localized swelling, mass and lump, head (principal); R94.31 Abnormal electrocardiogram [ECG] [EKG]; I10 Essential (primary) hypertension; J45.909 Unspecified asthma, uncomplicated; F41.9 Anxiety disorder, unspecified; Z88.8 Allergy status to other drugs, medicaments and biological substances; Z79.51 Long term (current) use of inhaled steroids; Z79.899 Other long term (current) drug therapy

== ENCOUNTER 2023-09-27 15:46 | Emergency (ER) | payer MEDICARE, OTHER ==
[~2023-09-27] VITALS: Ht 149.9 cm; Wt 67.1 kg
[2023-09-27 15:47] VITALS: TEMP 97.3
[2023-09-27] MEDS ORDERED: ISOVUE-370 76% 100ML VIAL As Ordered ONE (17:57)
[2023-09-27 19:35] VITALS: BP 138/67; O2SAT 97
== END 2023-09-27 19:37 | disposition home or self-care (01) ==
LOC: M ED 15:46
DX: R51.9 Headache, unspecified (principal); I10 Essential (primary) hypertension; J45.909 Unspecified asthma, uncomplicated; K21.9 Gastro-esophageal reflux disease without esophagitis; F41.9 Anxiety disorder, unspecified; Z88.8 Allergy status to other drugs, medicaments and biological substances; Z91.048 Other nonmedicinal substance allergy status; Z79.1 Long term (current) use of non-steroidal anti-inflammatories (NSAID); Z79.899 Other long term (current) drug therapy
CPT/HCPCS: 36415; 70450; 70496; 80047; 99284; Q9967

== ENCOUNTER → 2023-09-27 | Outpatient (CLI) | payer MEDICARE, OTHER ==
[~2023-09-27] MED LIST changes: +ACET650T15 PO; +ALPH600C PO; +B-12100010 PO; +ELIQ5TAB; +HYDR50TA70; +ONDA-284 PO; -ONDA8TAB8 PO; +OXYC-517; +RAME8TAB2
== END ==
LOC: M WHC 13:20
PROVIDERS: ATTEND Family Medicine
DX: Z12.31 Encounter for screening mammogram for malignant neoplasm of breast (principal); M81.0 Age-related osteoporosis without current pathological fracture; R92.323 Mammographic fibroglandular density, bilateral breasts

== ENCOUNTER → 2023-11-07 | Outpatient (CLI) | payer MEDICARE, OTHER ==
[2023-11-07 11:24] LABS: BLOOD UREA NITROGEN 9 MG/DL (9-23); CREATININE FOR GFR 0.66 MG/DL (0.55-1.30); GLOMERULAR FILTRATION RATE > 60.0 (>45)
== END ==
LOC: M LAB 09:56
PROVIDERS: ATTEND Neurological Surgery
DX: Z01.812 Encounter for preprocedural laboratory examination (principal); I10 Essential (primary) hypertension

== ENCOUNTER → 2023-11-18 | Outpatient (CLI) | payer MEDICARE, OTHER ==
[2023-11-18 07:17] LABS: BASO % 0.7 % (0.0-1.0); EOS # 0.1 10^3/uL (0.0-0.5); EOS % 3.1 % (0.0-3.0); HEMATOCRIT 33.8 % (36.0-47.0); HEMOGLOBIN 11.1 g/dl (12.0-15.5); LYMPH # 0.6 10^3/uL (1.5-5.0); LYMPH % 13.1 % (24.0-44.0); MEAN CORPUSCULAR HEMOGLOBIN 31.4 pg (27.0-33.0); MEAN CORPUSCULAR HGB CONC 32.8 g/dl (32.0-36.5); MEAN CORPUSCULAR VOLUME 95.5 fl (80.0-96.0); MONO # 0.4 10^3/uL (0.0-0.8); MONO % 10.5 % (2.0-8.0); NEUTROPHILS % 72.6 % (36.0-66.0); PLATELET COUNT, AUTOMATED 240 10^3/uL (150-450); RED BLOOD COUNT 3.54 10^6/uL (4.00-5.40); WHITE BLOOD COUNT 4.2 10^3/uL (4.0-10.0)
[2023-11-18 07:44] LABS: ALBUMIN 2.9 G/DL (3.2-5.2); ALKALINE PHOSPHATASE 157 U/L (46-116); ALT/SGPT 24 U/L (7.0-40); AST/SGOT 28 U/L (<34); BILIRUBIN,TOTAL 0.2 MG/DL (0.3-1.2); BLOOD UREA NITROGEN 14 MG/DL (9-23); CARBON DIOXIDE LEVEL 28 MMOL/L (20-31); CHLORIDE LEVEL 110 MMOL/L (98-107); CHOLESTEROL LEVEL 172 MG/DL (<200); CHOLESTEROL RISK RATIO 3.17 (<5); GLOMERULAR FILTRATION RATE > 60.0 (>45); GLUCOSE, FASTING 114 MG/DL (74-106); HDL CHOLESTEROL 54.2 MG/DL (>40); IRON (FE) 43 UG/DL (50-170); LDL CHOLESTEROL 107.4 MG/DL (<100); NON-HDL-C 117.8 MG/DL; POTASSIUM SERUM 4.4 MMOL/L (3.5-5.1); SODIUM LEVEL 142 MMOL/L (136-145); TOTAL PROTEIN 6.2 G/DL (5.7-8.2); TRIGLYCERIDES LEVEL 52 MG/DL (<150)
[2023-11-18 07:49] LABS: FERRITIN 22.1 NG/ML (7.3-270.7); VITAMIN B12 LEVEL 491 PG/ML (211-911)
== END ==
LOC: M LAB 06:38
PROVIDERS: ATTEND Family Medicine
DX: E78.5 Hyperlipidemia, unspecified (principal); J45.40 Moderate persistent asthma, uncomplicated; D50.9 Iron deficiency anemia, unspecified

== ENCOUNTER → 2023-11-29 | Outpatient (CLI) | payer MEDICARE, OTHER ==
[~2023-11-29] MED LIST changes: +GASTROGRAFIN SOLUTION 30ML As Ordered ONE; +ISOVUE-370 76% 100ML VIAL As Ordered ONE
== END ==
LOC: M RAD 09:08
PROVIDERS: ATTEND Specialist
DX: C20 Malignant neoplasm of rectum (principal)
CPT/HCPCS: 71260; 74177; Q9963; Q9967

== ENCOUNTER 2023-12-13 14:19 | Outpatient (CLI) | payer MEDICARE, OTHER ==
[~2023-12-13 14:19] MED LIST changes: +ALEN70TA82 PO; -ELIQ5TAB; +ELIQ5TAB PO; -GASTROGRAFIN SOLUTION 30ML As Ordered ONE; -HYDR50TA70; -ISOVUE-370 76% 100ML VIAL As Ordered ONE; -RAME8TAB2; +RAME8TAB2 PO
[2023-12-13 14:35] VITALS: BP 139/66; O2SAT 100
[2023-12-13] MEDS: FERRIC CARBOXYMALTOSE INJ 750 MG in NS 250 ML (>50kg) IV ONE (14:40)
[2023-12-13 15:45] VITALS: BP 133/67; O2SAT 99
== END 2023-12-13 15:45 ==
LOC: M INFU 14:19
PROVIDERS: ATTEND Family Medicine
DX: D64.9 Anemia, unspecified (principal); Z88.8 Allergy status to other drugs, medicaments and biological substances; Z91.048 Other nonmedicinal substance allergy status
CPT/HCPCS: 96365; J1439

== ENCOUNTER 2023-12-21 13:40 | Outpatient (CLI) | payer MEDICARE, OTHER ==
[~2023-12-21] VITALS: Ht 152.4 cm; Wt 67.2 kg
[2023-12-21 13:40] VITALS: BP 150/69; O2SAT 100
[~2023-12-21 13:40] MED LIST changes: +GABA-1490 PO; -GABA600T4 PO
[2023-12-21] MEDS: FERRIC CARBOXYMALTOSE INJ 750 MG in NS 250 ML (>50kg) IV ONE (13:53)
[2023-12-21 15:08] VITALS: BP 139/71; O2SAT 99
== END 2023-12-21 15:10 | disposition home or self-care (01) ==
LOC: M INFU 13:40
PROVIDERS: ATTEND Family Medicine
DX: D64.9 Anemia, unspecified (principal); Z88.8 Allergy status to other drugs, medicaments and biological substances; Z91.048 Other nonmedicinal substance allergy status
CPT/HCPCS: 96365; J1439

== ENCOUNTER → 2024-03-08 | Outpatient (CLI) | payer MEDICARE, OTHER ==
[~2024-03-08] MED LIST changes: +GABA-1172 PO; -GABA-282 PO
[2024-03-08 06:44] LABS: EOS # 0.2 10^3/uL (0.0-0.5); EOS % 4.4 % (0.0-3.0); HEMOGLOBIN 11.4 g/dl (12.0-15.5); LYMPH # 0.6 10^3/uL (1.5-5.0); LYMPH % 13.6 % (24.0-44.0); MEAN CORPUSCULAR HEMOGLOBIN 31.2 pg (27.0-33.0); MEAN CORPUSCULAR HGB CONC 32.6 g/dl (32.0-36.5); MEAN CORPUSCULAR VOLUME 95.9 fl (80.0-96.0); MONO # 0.4 10^3/uL (0.0-0.8); NEUTROPHILS # 2.9 10^3/uL (1.5-8.5); NEUTROPHILS % 70.8 % (36.0-66.0); PLATELET COUNT, AUTOMATED 197 10^3/uL (150-450); RED BLOOD COUNT 3.65 10^6/uL (4.00-5.40); WHITE BLOOD COUNT 4.1 10^3/uL (4.0-10.0)
[2024-03-08 07:19] LABS: ALBUMIN 2.9 G/DL (3.2-5.2); ALKALINE PHOSPHATASE 148 U/L (35-104); ALT/SGPT 10 U/L (7.0-40); AST/SGOT 10 U/L (<34); BILIRUBIN,TOTAL 0.2 MG/DL (0.3-1.2); BLOOD UREA NITROGEN 16 MG/DL (9-23); CALCIUM LEVEL 8.6 MG/DL (8.3-10.6); CARBON DIOXIDE LEVEL 28 MMOL/L (20-31); CHLORIDE LEVEL 110 MMOL/L (98-107); CHOLESTEROL LEVEL 182 MG/DL (<200); CHOLESTEROL RISK RATIO 2.69 (<5); CREATININE FOR GFR 0.78 MG/DL (0.55-1.30); GLOMERULAR FILTRATION RATE > 60.0 (>45); GLUCOSE, FASTING 92 MG/DL (74-106); HDL CHOLESTEROL 67.5 MG/DL (>40); IRON (FE) 83 UG/DL (50-170); LDL CHOLESTEROL 99.5 MG/DL (<100); NON-HDL-C 114.5 MG/DL; PERCENT SATURATION 40.9 % (13.2-45.0); POTASSIUM SERUM 4.9 MMOL/L (3.5-5.1); SODIUM LEVEL 142 MMOL/L (136-145); TOTAL IRON BINDING CAPACITY 203 UG/DL (250-425); TOTAL PROTEIN 6.3 G/DL (5.7-8.2); TRIGLYCERIDES LEVEL 75 MG/DL (<150)
[2024-03-08 07:21] LABS: FERRITIN 369.5 NG/ML (7.3-270.7)
== END ==
LOC: M LAB 06:04
PROVIDERS: ATTEND Family Medicine
DX: D50.9 Iron deficiency anemia, unspecified (principal); E78.00 Pure hypercholesterolemia, unspecified

== ENCOUNTER → 2024-05-02 | Outpatient (CLI) | payer MEDICARE, OTHER ==
[2024-05-02 18:07] LABS: BASO % 0.5 % (0.0-1.0); EOS # 0.1 10^3/uL (0.0-0.5); EOS % 1.9 % (0.0-3.0); HEMATOCRIT 37.4 % (36.0-47.0); HEMOGLOBIN 11.9 g/dl (12.0-15.5); LYMPH # 0.8 10^3/uL (1.5-5.0); LYMPH % 18.8 % (24.0-44.0); MEAN CORPUSCULAR HEMOGLOBIN 31.2 pg (27.0-33.0); MEAN CORPUSCULAR HGB CONC 31.8 g/dl (32.0-36.5); MEAN CORPUSCULAR VOLUME 97.9 fl (80.0-96.0); MONO # 0.4 10^3/uL (0.0-0.8); MONO % 10.4 % (2.0-8.0); NEUTROPHILS # 2.8 10^3/uL (1.5-8.5); NEUTROPHILS % 68.2 % (36.0-66.0); PLATELET COUNT, AUTOMATED 181 10^3/uL (150-450); RED BLOOD COUNT 3.82 10^6/uL (4.00-5.40); WHITE BLOOD COUNT 4.1 10^3/uL (4.0-10.0)
[2024-05-02 18:31] LABS: PHENYTOIN (DILANTIN) 10.8 UG/ML (10.0-20.0)
[2024-05-02 18:34] LABS: ALBUMIN 3.4 G/DL (3.2-5.2); ALKALINE PHOSPHATASE 149 U/L (35-104); ALT/SGPT 16 U/L (7.0-40); AST/SGOT 20 U/L (<34); BILIRUBIN,TOTAL 0.3 MG/DL (0.3-1.2); BLOOD UREA NITROGEN 12 MG/DL (9-23); CALCIUM LEVEL 8.2 MG/DL (8.3-10.6); CARBON DIOXIDE LEVEL 29 MMOL/L (20-31); CHLORIDE LEVEL 106 MMOL/L (98-107); GLOMERULAR FILTRATION RATE > 60.0 (>45); GLUCOSE, FASTING 85 MG/DL (74-106); POTASSIUM SERUM 4.8 MMOL/L (3.5-5.1); SODIUM LEVEL 142 MMOL/L (136-145); TOTAL PROTEIN 6.8 G/DL (5.7-8.2)
== END ==
LOC: M WUC 11:19
PROVIDERS: ATTEND Psychiatry & Neurology Neurology
DX: G40.909 Epilepsy, unspecified, not intractable, without status epilepticus (principal)

== ENCOUNTER → 2024-05-18 | Outpatient (CLI) | payer MEDICARE, OTHER ==
[2024-05-18 11:43] LABS: BASO % 0.4 % (0.0-1.0); EOS # 0.1 10^3/uL (0.0-0.5); EOS % 2.4 % (0.0-3.0); HEMATOCRIT 36.8 % (36.0-47.0); LYMPH # 0.8 10^3/uL (1.5-5.0); LYMPH % 17.4 % (24.0-44.0); MEAN CORPUSCULAR HEMOGLOBIN 31.4 pg (27.0-33.0); MEAN CORPUSCULAR HGB CONC 32.6 g/dl (32.0-36.5); MEAN CORPUSCULAR VOLUME 96.3 fl (80.0-96.0); MONO # 0.4 10^3/uL (0.0-0.8); MONO % 8.8 % (2.0-8.0); NEUTROPHILS # 3.2 10^3/uL (1.5-8.5); NEUTROPHILS % 70.8 % (36.0-66.0); PLATELET COUNT, AUTOMATED 190 10^3/uL (150-450); RED BLOOD COUNT 3.82 10^6/uL (4.00-5.40); WHITE BLOOD COUNT 4.5 10^3/uL (4.0-10.0)
[2024-05-18 12:10] LABS: ALBUMIN 3.1 G/DL (3.2-5.2); ALKALINE PHOSPHATASE 129 U/L (35-104); ALT/SGPT 17 U/L (7.0-40); AST/SGOT 18 U/L (<34); BILIRUBIN,TOTAL 0.3 MG/DL (0.3-1.2); BLOOD UREA NITROGEN 10 MG/DL (9-23); CALCIUM LEVEL 8.4 MG/DL (8.3-10.6); CARBON DIOXIDE LEVEL 28 MMOL/L (20-31); CHLORIDE LEVEL 109 MMOL/L (98-107); CREATININE FOR GFR 0.62 MG/DL (0.55-1.30); GLOMERULAR FILTRATION RATE > 60.0 (>45); GLUCOSE, FASTING 92 MG/DL (74-106); POTASSIUM SERUM 4.9 MMOL/L (3.5-5.1); SODIUM LEVEL 141 MMOL/L (136-145); TOTAL PROTEIN 6.6 G/DL (5.7-8.2)
== END ==
LOC: M ONCR 10:36
PROVIDERS: ATTEND General Practice
DX: C20 Malignant neoplasm of rectum (principal); Z92.3 Personal history of irradiation; Z92.21 Personal history of antineoplastic chemotherapy; Z88.8 Allergy status to other drugs, medicaments and biological substances; Z79.899 Other long term (current) drug therapy; Z91.048 Other nonmedicinal substance allergy status; Z79.01 Long term (current) use of anticoagulants
CPT/HCPCS: 36415; 80053; 82378; 85025; G0463

== ENCOUNTER → 2024-06-14 | Outpatient (CLI) | payer MEDICARE, OTHER ==
[~2024-06-14] MED LIST changes: +ISOVUE-370 76% 100ML VIAL As Ordered ONE; +PREG25CA3; +PREG25CA3 PO
== END ==
LOC: M RAD 07:01
PROVIDERS: ATTEND Specialist
DX: C20 Malignant neoplasm of rectum (principal)
CPT/HCPCS: 71260; 74177; Q9967

== ENCOUNTER → 2024-11-05 | Outpatient (CLI) | payer MEDICARE, OTHER ==
[~2024-11-05] MED LIST changes: +ACET-1515 PO; -ACET650T15 PO; +ALBU8.5H; -ALPH600C PO; +ALPH600C2 PO; +AMIT10TA11 PO; -AMIT10TA7 PO; +BUDE10.7; -EQL50TAB2 PO; +ISOVUE-370 76% 100 ML VIAL As Ordered ONE; -ISOVUE-370 76% 100ML VIAL As Ordered ONE; -PREG25CA PO; +PREG25CA63 PO; -SUCR1ORA2; +SUCR1ORA20; +TRAZ-252; +VITA1TAB82 PO
== END ==
LOC: M RAD 09:26
DX: C20 Malignant neoplasm of rectum (principal)
CPT/HCPCS: 71260; 74177; Q9967

== ENCOUNTER → 2024-11-14 | Outpatient (CLI) | payer MEDICARE, OTHER ==
[~2024-11-14] MED LIST changes: -ISOVUE-370 76% 100 ML VIAL As Ordered ONE
== END ==
LOC: M ONCR 08:12
PROVIDERS: ATTEND General Practice
DX: C20 Malignant neoplasm of rectum (principal); Z88.1 Allergy status to other antibiotic agents; Z88.8 Allergy status to other drugs, medicaments and biological substances; Z91.048 Other nonmedicinal substance allergy status; Z79.01 Long term (current) use of anticoagulants; Z79.899 Other long term (current) drug therapy; Z92.21 Personal history of antineoplastic chemotherapy; Z92.3 Personal history of irradiation

== ENCOUNTER → 2025-04-02 | Outpatient (CLI) | payer MEDICARE, OTHER ==
[~2025-04-02] MED LIST changes: -PROC5TAB57 PO; +PROC5TAB81 PO
[2025-04-02 19:12] LABS: BASO # 0.0 10^3/uL (0.0-0.2); BASO % 0.6 % (0.0-1.0); EOS # 0.1 10^3/uL (0.0-0.5); EOS % 1.6 % (0.0-3.0); LYMPH # 1.1 10^3/uL (1.5-5.0); LYMPH % 16.8 % (24.0-44.0); MONO # 0.8 10^3/uL (0.0-0.8); MONO % 12.4 % (2.0-8.0); NEUTROPHILS # 4.6 10^3/uL (1.5-8.5); NEUTROPHILS % 68.3 % (36.0-66.0); PLATELET COUNT, AUTOMATED 241 10^3/uL (150-450)
[2025-04-02 19:14] LABS: ALT/SGPT 14 U/L (7.0-40); AST/SGOT 20 U/L (<34); CALCIUM LEVEL 8.8 MG/DL (8.3-10.6); CARBON DIOXIDE LEVEL 30 MMOL/L (20-31); CHLORIDE LEVEL 104 MMOL/L (98-107); CHOLESTEROL LEVEL 191 MG/DL (<200); CHOLESTEROL RISK RATIO 3.35 (<5); CREATININE FOR GFR 0.70 MG/DL (0.55-1.30); GLOMERULAR FILTRATION RATE > 90.0 (>39); IRON (FE) 41 UG/DL (50-170); LDL CHOLESTEROL 111.4 MG/DL (<100); NON-HDL-C 134.0 MG/DL; POTASSIUM SERUM 4.1 MMOL/L (3.5-5.1); SODIUM LEVEL 142 MMOL/L (136-145); TRIGLYCERIDES LEVEL 113 MG/DL (<150); VITAMIN B12 LEVEL 398 PG/ML (211-911)
[2025-04-02 19:18] LABS: TOTAL 25(OH) VITAMIN D 44.4 NG/ML (20.0-100.0)
== END ==
LOC: M WUC 12:50
PROVIDERS: ATTEND Family Medicine
DX: K21.9 Gastro-esophageal reflux disease without esophagitis (principal); D50.9 Iron deficiency anemia, unspecified; D51.9 Vitamin B12 deficiency anemia, unspecified; E55.9 Vitamin D deficiency, unspecified; E78.5 Hyperlipidemia, unspecified